=== PATIENT | female | born 1995 | race Caucasian/White ===

== ENCOUNTER 2017-03-08 12:05 | Emergency (ER) | payer MEDICAID, SELFPAY ==
[2017-03-08 13:01] VITALS: BP 124/79; PULSE 77; RESP 20; TEMP 37.1; O2SAT 100; BMI 21.2
--- NOTE | 2017-03-08 13:25 | HMH.EDUTC ---
[facility] [place] Clinical Impression: Upper respiratory infection Qualifiers: URI type: unspecified URI Qualified Code(s): J06.9 - Acute upper respiratory infection, unspecified Disposition: Home, Self-Care Condition on Discharge: Good Instructions: DI for Acute Bronchitis Additional Instructions: * Monitor Temp. Tylenol and/or Ibuprofen as needed. ER if fever is no less than 101 despite alternating Tylenol and Ibuprofen * Encourage fluids, water, Gatorade, powerade, pedialyte if /toddler/or child * Warm salt water gargles for throat irritation *Warm fluids *Sore throat lozenges *Sleep elevated *humidifier or vaporizer Lots of rest Increase fluids, water, Gatorade, powerade *Your throat swab was sent to lab for culture. Those results area typically sent to your primary care physician. Be sure to follow up in 2-3 days if no improvement so they can review those results and treat if necessary If you dont have primary care I recommend you get one, but in the mean time you will have to return to a walk in clinic Follow up IMMEDIATELY for new or worsening of symptoms OR no noticeable improvement over the next 48-72 hours. 911 immediately for any life threatening symptoms such as chest pain or difficulty breathing Referrals: Edwin Hackett MD [Primary Care Provider] - Time of Disposition: 13:46 (Prescription written for Prednison 20mg BID, Azithromycin (Zpack) as directed) Medical Decision Making Vital Signs: 03/08/17 13:01 Temperature 98.8 F Temperature Source Oral Pulse Rate [Right Brachial] 77 Respiratory Rate 20 Blood Pressure [Right Arm] 124/79 Blood Pressure Mean [Right Arm] 94 Blood Pressure Source [Right Arm] Automatic Cuff Blood Pressure Position [Right Arm] Sitting 02 Sat by Pulse Oximetry 100 Oxygen Delivery Method Room Air - Napoleon Inquiry Pt receiving controlled substance: No Napoleon was queried for this patient: No [facility] [place] - General Chief complaint: Upper Respiratory Infection Stated complaint: upper resp Time Seen by Provider: 03/08/17 13:31 Mode of Arrival: Ambulatory Source of Information: Patient Limitations: No Limitations Description of Symptoms (Recalled from Triage Doc. by RN): SORE THROAT, THICK MUCOUS, RIGHT SIDE OF NECK SORE FOR 2 WEEKS. HEENT Symptoms (Recalled from RN notes): Yes (SORE THROAT) Resp Symptoms (Recalled from RN notes): Yes (THICK MUCOUS) Skin Symptoms (Recalled from RN notes): No MS Symptoms (Recalled from RN notes): Yes (RIGHT NECK PAIN FOR 2 WEEKS) Functional Status (Recalled from RN notes): NS - History of Present Illness Provider Complaint: Patient state that she has been having sore throat, bilateral ear pain and thick nasal congestion States that she is starting to have pressure in her sinuses so she decided to come in and get checked out Onset (ago): day(s) (2) Severity: mild Severity scale (1-10): 4 Consistency: constant Relieving factors: none Exacerbating factors: none - Related Data Allergies Allergy/AdvReac Type Severity Reaction Status Date / Time No Known Allergies Allergy Verified 03/08/17 13:07 - Worker's Comp Is this a Worker's Comp case?: No [facility] History Medical History: Denies:: Cancer, Diabetes Mellitus Type 1, Diabetes Mellitus Type 2, MRSA Amputation: No - *Social History Smoking Status: Current every day smoker Tobacco Type: cigarettes Alcohol Intake: never - Psychiatric History Expresses thoughts of harming self/others: None Suicide Plan Description: No Plan - Constitutional Reports chills, Reports fever(s) - ENT Reports sinus pressure, Reports sore throat - Respiratory Reports cough, Denies chest congestion, Denies shortness of breath Physical Exam - General General appearance: alert, in no apparent distress - Expanded ENT Exam Nose exam: Present: sinus tenderness, other (Tenderness noted maxillary sinus, reports thick yellow discharge) Throat exam: Present: other Comment: Throat red, irr
--- NOTE | 2017-03-08 13:30 | ED_ITS ---
[facility] – [place] Clinical Impression: Upper respiratory infection Qualifiers: URI type: unspecified URI Qualified Code(s): J06.9 - Acute upper respiratory infection, unspecified Disposition: Home, Self-Care Condition on Discharge: Good Instructions: DI for Acute Bronchitis Additional Instructions: * Monitor Temp. Tylenol and/or Ibuprofen as needed. ER if fever is no less than 101 despite alternating Tylenol and Ibuprofen * Encourage fluids, water, Gatorade, powerade, pedialyte if /toddler/or child * Warm salt water gargles for throat irritation *Warm fluids *Sore throat lozenges *Sleep elevated *humidifier or vaporizer Lots of rest Increase fluids, water, Gatorade, powerade *Your throat swab was sent to lab for culture. Those results area typically sent to your primary care physician. Be sure to follow up in 2-3 days if no improvement so they can review those results and treat if necessary If you don? t have primary care I recommend you get one, but in the mean time you will have to return to a walk in clinic Follow up IMMEDIATELY for new or worsening of symptoms OR no noticeable improvement over the next 48-72 hours. 911 immediately for any life threatening symptoms such as chest pain or difficulty breathing Referrals: Edwin Hackett MD [Primary Care Provider] - Time of Disposition: 13:46 (Prescription written for Prednison 20mg BID, Azithromycin (Zpack) as directed) Medical Decision Making Vital Signs: 03/08/17 13:01 Temperature 98.8 F Temperature Source Oral Pulse Rate [Right Brachial] 77 Respiratory Rate 20 Blood Pressure [Right Arm] 124/79 Blood Pressure Mean [Right Arm] 94 Blood Pressure Source [Right Arm] Automatic Cuff Blood Pressure Position [Right Arm] Sitting 02 Sat by Pulse Oximetry 100 Oxygen Delivery Method Room Air - Napoleon Inquiry Pt receiving controlled substance: No Napoleon was queried for this patient: No [facility] [place] HPI - General Chief complaint: Upper Respiratory Infection Stated complaint: upper resp Time Seen by Provider: 03/08/17 13:31 Mode of Arrival: Ambulatory Source of Information: Patient Limitations: No Limitations Description of Symptoms (Recalled from Triage Doc. by RN): SORE THROAT, THICK MUCOUS, RIGHT SIDE OF NECK SORE FOR 2 WEEKS. HEENT Symptoms (Recalled from RN notes): Yes (SORE THROAT) Resp Symptoms (Recalled from RN notes): Yes (THICK MUCOUS) Skin Symptoms (Recalled from RN notes): No MS Symptoms (Recalled from RN notes): Yes (RIGHT NECK PAIN FOR 2 WEEKS) Functional Status (Recalled from RN notes): NS - History of Present Illness Provider Complaint: Patient state that she has been having sore throat, bilateral ear pain and thick nasal congestion States that she is starting to have pressure in her sinuses so she decided to come in and get checked out Onset (ago): day(s) (2) Severity: mild Severity scale (1-10): 4 Consistency: constant Relieving factors: none Exacerbating factors: none - Related Data Allergies Allergy/AdvReac Type Severity Reaction Status Date / Time No Known Allergies Allergy Verified 03/08/17 13:07 - Worker's Comp Is this a Worker's Comp case?: No [facility] History Medical History: Denies:: Cancer, Diabetes Mellitus Type 1, Diabetes Mellitus Type 2, MRSA Amputation: No - *Social History Smoking Status: Current every day smoker Tobacco Type: cigarettes Alcohol Intake: never - Psychiatric
== END 2017-03-08 13:59 | disposition home or self-care (01) ==
PROVIDERS: Emergency Provider Nurse Practitioner; Family Provider Internal Medicine Adolescent Medicine; PCP Internal Medicine Adolescent Medicine
DX: J06.9 Acute upper respiratory infection, unspecified (principal); H92.03 Otalgia, bilateral; F17.210 Nicotine dependence, cigarettes, uncomplicated
CPT/HCPCS: 87430; 87880; 99201

== ENCOUNTER → 2017-07-21 08:24 | Outpatient (CLI) | payer MEDICAID, SELFPAY ==
[2017-07-21 06:31] LABS: Neisseria gonorrhoeae, NAA Negative (Negative)
== END ==
PROVIDERS: Family Provider Internal Medicine Adolescent Medicine; PCP Internal Medicine Adolescent Medicine; Visit Provider Nurse Practitioner Obstetrics & Gynecology
DX: R10.9 Unspecified abdominal pain (principal)
CPT/HCPCS: 87491; 87591

== ENCOUNTER → 2017-08-30 14:30 | Outpatient (CLI) | payer MEDICAID, SELFPAY ==
[2017-08-30 15:02] LABS: Urine Pregnancy, HCG Qual. Negative (Negative)
[2017-08-30 15:21] LABS: Basophils # 0.1 K/mm3 (0-0.2); Basophils % 0.9 % (0.1-2.0); Eosinophils # 0.4 K/mm3 (0.0-0.4); Eosinophils % 6.5 % (0.1-12.0); Hematocrit 52.7 % (37.0-47.0); Hemoglobin 17.2 g/dL (12.2-16.2); Lymphocytes # 2.4 K/mm3 (0.7-4.5); Lymphocytes % 36.9 K/mm3 (10-50); Mean Corpuscular HGB Conc 32.6 g/dL (31.8-35.4); Mean Corpuscular Hemoglobin 31.2 pg (27.0-31.2); Mean Corpuscular Volume 95.7 fl (81-99); Mean Platelet Volume 7.7 fl (7.4-10.4); Monocytes # 0.3 K/mm3 (0.1-1.0); Monocytes % 4.9 % (1.7-9.3); Neutrophils # 3.3 K/mm3 (1.8-7.8); Neutrophils % 50.8 % (37.0-80.0); Platelet Count 277 K/mm3 (142-424); Red Blood Count 5.51 M/mm3 (4.20-5.40); Red Cell Distribution Width 12.2 % (11.5-17.5); White Blood Count 6.5 K/mm3 (4.8-10.8)
[2017-08-30 16:24] LABS: Anion Gap 12.2 mEq/L (5-15); Blood Urea Nitrogen 11 mg/dL (7-18); Calcium 9.2 mg/dL (8.5-10.1); Carbon Dioxide 27 mmol/L (21.0-32.0); Chloride 105 mmol/L (98-107); Creatinine,Serum 0.84 mg/dL (0.55-1.02); Estimated Glomerular Filt Rate 84 ml/min (>60); GFR (African American) 102 ML/MIN (>60); Glucose 76 mg/dL (74-106); Potassium 4.2 mmoL/L (3.5-5.1); Sodium 140 mmol/L (136-145)
== END ==
PROVIDERS: Visit Provider Nurse Practitioner Obstetrics & Gynecology
DX: Z01.818 Encounter for other preprocedural examination (principal); Z30.09 Encounter for other general counseling and advice on contraception
CPT/HCPCS: 36415; 80048; 81025; 85025

== ENCOUNTER → 2018-06-09 16:28 | Outpatient (CLI) | payer MEDICAID, SELFPAY ==
[2018-06-13 06:15] LABS: Neisseria gonorrhoeae, NAA Negative (Negative)
== END ==
PROVIDERS: Visit Provider Nurse Practitioner Obstetrics & Gynecology
DX: R10.2 Pelvic and perineal pain (principal); Z72.53 High risk bisexual behavior
CPT/HCPCS: 87491; 87591

== ENCOUNTER → 2018-06-15 13:16 | Outpatient (CLI) | payer MEDICAID, SELFPAY ==
--- NOTE | 2018-06-15 13:20 | US_ITS ---
US transvaginal HISTORY: Pelvic pain and pressure ITS.REASON: US T/V- Pelvic Pain ORDERING PHYSICIAN: Johann Johnson MD PATIENT AGE: 23 years Comparison: None Last menstrual period is 05/24/2018 FINDINGS: The uterus is 9 x 4.6 x 5.7 cm. Combined endometrial thickness is 13 mm with some heterogeneous echogenicity of the endometrial stripe. Right ovary is 3.5 x 3 cm. Left ovary is 3.6 x 3.2 cm. There are small bilateral ovarian follicles. Blood flow is present within the ovaries. No dominant adnexal mass evident. There is a small amount fluid in the cul-de-sac. IMPRESSION: Mildly thickened endometrium Small bilateral ovarian follicles with small amount of fluid in the cul-de-sac
== END ==
PROVIDERS: PCP Internal Medicine Adolescent Medicine; Visit Provider Nurse Practitioner Obstetrics & Gynecology
DX: R10.2 Pelvic and perineal pain (principal)
CPT/HCPCS: 76830

== ENCOUNTER → 2018-06-30 16:29 | Outpatient (CLI) | payer MEDICAID, SELFPAY ==
[2018-07-04 10:14] LABS: Neisseria gonorrhoeae, NAA Negative (Negative)
== END ==
PROVIDERS: Visit Provider Nurse Practitioner Obstetrics & Gynecology
DX: R10.2 Pelvic and perineal pain (principal); Z72.51 High risk heterosexual behavior
CPT/HCPCS: 87491; 87591

== ENCOUNTER 2018-08-27 13:04 | Emergency (ER) | payer MEDICAID, SELFPAY ==
[2018-08-27 13:09] VITALS: BP 142/72; PULSE 78; RESP 18; TEMP 36.6; O2SAT 99; BMI 24.8
--- NOTE | 2018-08-27 13:31 | HMH.EDGENADL ---
ED Disposition Clinical Impression: Anorectal hemorrhage Disposition: Home, Self-Care Condition on Discharge: Good Instructions: Anal Fissure, DI for Acute Pain -- Adult Prescriptions: Hydrocortisone [Anusol-Hc] 1 applic TP QID 7 Days #1 [email or web address] Referrals: Nely Pichardo APRN [Primary Care Provider] - Time of Disposition: 16:47 - Critical Care Critical Care Time: No Attestation: On 08/27/18, the high probability of a clinically significant, sudden or life threatening deterioration of the following system(s) required my full and direct attention, intervention and personal management. The time I documented below is in addition to time spent performing reported procedures but includes the following listed in this critical care notation. Medical Decision Making - Medical Records Medical records reviewed: Yes: I reviewed the patient's medical records. - Napoleon Inquiry Pt receiving controlled substance: No Napoleon was queried for this patient: No Vital Signs: 08/27/18 13:09 Temperature 98 F Temperature Source Oral Pulse Rate [Left Apical] 78 Respiratory Rate 18 Blood Pressure [Right Arm] 142/72 H Blood Pressure Mean [Right Arm] 95 02 Sat by Pulse Oximetry 99 Oxygen Delivery Method Room Air - Lab Data Lab results reviewed: Yes: I reviewed the patient's lab results. Orders (Tests/Meds): ED MEDICATIONS Discontinued Medications Generic Name Dose Route Start Last Admin Trade Name Parvin PRN Reason Stop Dose Admin Belladonna Alkaloids/Opium 1 each 08/27/18 13:55 08/27/18 14:13 Belladonna & Opium (30mg) Supp. #15a RC 08/27/18 13:56 1 each ONCE ONE Administration Ketorolac Tromethamine 60 mg 08/27/18 14:36 08/27/18 14:41 Toradol 60mg/2ml Vial IM 08/27/18 14:37 60 mg ONCE ONE Administration Lidocaine HCl 10 ml 08/27/18 14:40 08/27/18 14:41 Urojet Lidocaine 2% 10ml TOPICAL 08/27/18 14:41 10 ml ONCE ONE Administration Oxycodone/Acetaminophen 1 each 08/27/18 15:03 Percocet 10mg/325mg Tablet PO 08/27/18 15:04 ONCE ONE Promethazine HCl 25 mg 08/27/18 15:03 Phenergan 25mg Tablet PO 08/27/18 15:04 ONCE ONE ORDERS Category Date Time Status CT abdomen pelvis wo con Stat Cat Scan 08/27/18 14:45 Taken General Adult HPI - General Chief complaint: PAIN Stated complaint: Problems with rectum possible tear Time Seen by Provider: 08/27/18 13:31 Mode of Arrival: Ambulatory Source of Information: Patient Limitations: No Limitations Description of Symptoms (Recalled from ER Triage Doc. by RN): pt c/o possible tear in rectum due to constipation. pt states that it bleeds when she has bowel movements. - History of Present Illness HPI narrative: voices 4 days of pain/ bleeding. All pain and bleeding seems terminal anus. No belly or back pain - Related Data Home Medications Medication Instructions Recorded Confirmed linaclotide 72 mcg capsule 72 mcg PO DAILY 06/26/18 08/02/18 trazodone 50 mg tablet PO #60 tab 08/02/18 08/02/18 Previous Rx's Medication Instructions Recorded Hydrocortisone [Anusol-Hc] 1 applic TP QID 7 Days #1 08/27/18 [email or web address] Allergies Allergy/AdvReac Type Severity Reaction Status Date / Time No Known Allergies Allergy Verified 08/02/18 15:15 [facility] History - Hepatitis A Screen Drug use history?: No High risk sexual behaviors?: No History of sexually transmitted infection?: No Currently employed?: No Childcare worker?: No Do you have indoor plumbing?: Yes Do you have electricity?: Yes Attestation statement:: This patient has been screened for Hepatitis A risk factors. I have reviewed the patient's past medical history: Yes Medical History: Denies:: Cancer, Diabetes Mellitus Type 1, Diabetes Mellitus Type 2, Internal Pacemaker, MRSA, Seizures Other Medical History: Denies: Blood Transfusion Reaction Other Surgeries: Yes: , Dilation and Curettage, Tubal Ligation, Other. No: Pace
--- NOTE | 2018-08-27 13:41 | ED_ITS ---
ED Disposition Clinical Impression: Anorectal hemorrhage Disposition: Home, Self-Care Condition on Discharge: Good Instructions: Anal Fissure, DI for Acute Pain -- Adult Prescriptions: Hydrocortisone [Anusol-Hc] 1 applic TP QID 7 Days #1 [email or web address] Referrals: Nely Pichardo APRN [Primary Care Provider] - Time of Disposition: 16:47 - Critical Care Critical Care Time: No Attestation: On 08/27/18, the high probability of a clinically significant, sudden or life threatening deterioration of the following system(s) required my full and direct attention, intervention and personal management. The time I documented below is in addition to time spent performing reported procedures but includes the following listed in this critical care notation. Medical Decision Making - Medical Records Medical records reviewed: Yes: I reviewed the patient's medical records. - Napoleon Inquiry Pt receiving controlled substance: No Napoleon was queried for this patient: No Vital Signs: 08/27/18 13:09 Temperature 98 F Temperature Source Oral Pulse Rate [Left Apical] 78 Respiratory Rate 18 Blood Pressure [Right Arm] 142/72 H Blood Pressure Mean [Right Arm] 95 02 Sat by Pulse Oximetry 99 Oxygen Delivery Method Room Air - Lab Data Lab results reviewed: Yes: I reviewed the patient's lab results. Orders (Tests/Meds): ED MEDICATIONS Discontinued Medications Generic Name Dose Route Start Last Admin Trade Name Parvin PRN Reason Stop Dose Admin Belladonna Alkaloids/Opium 1 each 08/27/18 13:55 08/27/18 14:13 Belladonna & Opium (30mg) Supp. #15a RC 08/27/18 13:56 1 each ONCE ONE Administration Ketorolac Tromethamine 60 mg 08/27/18 14:36 08/27/18 14:41 Toradol 60mg/2ml Vial IM 08/27/18 14:37 60 mg ONCE ONE Administration Lidocaine HCl 10 ml 08/27/18 14:40 08/27/18 14:41 Urojet Lidocaine 2% 10ml TOPICAL 08/27/18 14:41 10 ml ONCE ONE Administration Oxycodone/Acetaminophen 1 each 08/27/18 15:03 Percocet 10mg/325mg Tablet PO 08/27/18 15:04 ONCE ONE Promethazine HCl 25 mg 08/27/18 15:03 Phenergan 25mg Tablet PO 08/27/18 15:04 ONCE ONE ORDERS Category Date Time Status CT abdomen pelvis wo con Stat Cat Scan 08/27/18 14:45 Taken General Adult HPI - General Chief complaint: PAIN Stated complaint: Problems with rectum possible tear Time Seen by Provider: 08/27/18 13:31 Mode of Arrival: Ambulatory Source of Information: Patient Limitations: No Limitations Description of Symptoms (Recalled from ER Triage Doc. by RN): pt c/o possible tear in rectum due to constipation. pt states that it bleeds when she has bowel movements. - History of Present Illness HPI narrative: voices 4 days of pain/ bleeding. All pain and bleeding seems terminal anus. No belly or back pain - Related Data Home Medications Medication Instructions Recorded Confirmed linaclotide 72 mcg capsule 72 mcg PO DAILY 06/26/18 08/02/18 trazodone 50 mg tablet PO #60 tab 08/02/18 08/02/18 Previous Rx's Medication Instructions
--- NOTE | 2018-08-27 14:45 | CT_ITS ---
CT abdomen pelvis wo con INDICATION: 4 days of pain and bleeding all pain and bleeding seem to be at the anus. No biliary, no abdominal nor back pain ITS.REASON: rectal pain rectal bleeding. Rectal fissure possible rectal tear. ORDERING PHYSICIAN: Virgilio Hernandez MD PATIENT AGE: 23 years COMPARISON: 01/24/2018 PROCEDURE: Oral Contrast: None IV Contrast: None TECHNIQUE: Axial images obtained with sagittal and coronal reformats. All CT scans at the facility use one or more dose reduction, viz: automated exposure control, ma/kV adjustment per patient size (including targeted exams where dose is matched to indication, i.e. head), or iterative reconstruction technique. FINDINGS: Lower thorax: No acute finding. Heart normal size. ABDOMEN: The lack of oral and IV contrast decreases sensitivity. Liver: No masses or biliary dilatation. Gallbladder: Nondistended. No radio opaque stones. Question minimal sludge. Pancreas: No masses or peripancreatic fluid collections. Unremarkable on this noncontrast study. Spleen: Unremarkable. Adrenals: Unremarkable /Kidneys/ureters: No significant findings PELVIS: Urinary bladder unremarkable. Anteverted uterus.. Uterus generous girth unchanged since previous studies Slightly larger Right ovary- upper normal in size measuring up to 4 cm height and contains numerous follicles. Suggestion trace free fluid posterior to the right ovary and towards cul-de-sac. It likely physiologic, could reflect a recent cyst rupture . Moderate size left ovary. GI Tract: Stomach bowel: Nondistended. No obvious mass or thickening. Appendix: No evidence of appendicitis. The terminal ileum unremarkable. Small bowel. No prominent findings. Small moderate air-fluid level at small bowel to the right abdomen, axial image 54, sagittal 28th. Unimpressive can reflect a minor ileus. . Moderate stool at the cecum, right and transverse colon Rectosigmoid: Note a air-fluid level most evident at the rectum rectum with liquid stool/fluid extending into the into rectosigmoid region. This could reflect diarrhea or may reflect regional bleeding as suggested by history. Borderline borderline wall thickening distal most rectum towards anus also suggest.Question some of minimal fluid in cul-de-sac mixed in back to the Anterior margin the rectum wall on axial slice 97.-Equivocal No enlarged lymph nodes. No abdominal masses. .. BONE. No lesions no remarkable findings. IMPRESSION...... 1. Minimal air-fluid level within rectum & towards rectosigmoid. ... Can reflect diarrhea, or may reflect bleeding in this region as was suggested by ER history .... Borderline wall thickening at the distal most rectum towards anus. 2. Suggestion scant fluid cul-de-sac & Extending towards anterior wall of rectum Unimpressive but noted Other minor observations: 3. Right ovary is upper normal in size 4 cm. likely contains numerous follicles. Likely accounts for the minimal physiologic fluid in cul-de-sac Ovaries generous size bilaterally.. Generous girth of uterus similar to previous study
[2018-08-27 17:44] VITALS: BP 126/66; PULSE 68; RESP 18; TEMP 36.6; O2SAT 100
== END 2018-08-27 17:48 | disposition home or self-care (01) ==
PROVIDERS: Emergency Provider Emergency Medicine; PCP Nurse Practitioner Family
DX: K62.5 Hemorrhage of anus and rectum (principal); K60.2 Anal fissure, unspecified; F17.210 Nicotine dependence, cigarettes, uncomplicated
CPT/HCPCS: 74176; 96372; 99282

== ENCOUNTER → 2018-08-31 12:35 | Outpatient (CLI) | payer MEDICAID, SELFPAY ==
--- NOTE | 2018-08-31 12:40 | CT_ITS ---
CT abdomen pelvis w con CLINICAL INDICATION: ITS.REASON: RECTAL BLEEDING, RECTAL PAIN ORDERING PHYSICIAN: Nely Pichardo APRN PATIENT AGE: 23 years COMPARISON: 08/27/2018. TECHNIQUE: Axial images obtained with sagittal and coronal reformats. All CT scans at the facility use one or more dose reduction, viz: automated exposure control, ma/kV adjustment per patient size (including targeted exams where dose is matched to indication, i.e. head), or iterative reconstruction technique. PROCEDURE: Oral Contrast: Yes IV Contrast: Yes . FINDINGS: Lower thorax: No acute finding ABDOMEN: Liver: No masses or biliary dilatation. Gallbladder: Nondistended. No radio opaque stones. Pancreas: No masses or peripancreatic fluid collections. Spleen: Unremarkable. Adrenals: Unremarkable Kidneys/ureters: No masses. No renal calculi. No hydronephrosis. No perinephric fluid collections. No ureteral dilatation or obvious ureteral calculi. Stomach bowel: Nondistended. No obvious mass or thickening. Appendix: No evidence of appendicitis. PELVIS: Reproductive: There is very small cul-de-sac fluid. There is a 10 mm round hypodense focus with enhancing wall suggesting a collapsing cyst at the right adnexa. Left adnexa is normal. Bladder: Nondistended. No obvious stones or masses. ABDOMEN & PELVIS: Peritoneum: No abnormal fluid collections. No obvious inflammatory changes. No free air. Lymph nodes: No enlarged lymph nodes apparent. Vasculature: No evidence of abdominal aortic aneurysm. No retroperitoneal hemorrhage evident. Bones: No acute fracture IMPRESSION: Physiological small amount of cul-de-sac fluid. Probable collapsing 10 mm right adnexal cyst. No other acute process.
== END ==
PROVIDERS: PCP Internal Medicine Adolescent Medicine; Visit Provider Nurse Practitioner Family
DX: K62.5 Hemorrhage of anus and rectum (principal); K62.89 Other specified diseases of anus and rectum
CPT/HCPCS: 74177; Q9967

== ENCOUNTER → 2020-02-16 10:53 | Outpatient (CLI) | payer OTHER, SELFPAY ==
[2020-02-16 11:36] LABS: Basophils # 0.1 K/mm3 (0-0.2); Basophils % 1.1 % (0.1-2.0); Eosinophils # 0.4 K/mm3 (0.0-0.4); Eosinophils % 5.2 % (0.1-12.0); Hematocrit 49.8 % (37.0-47.0); Hemoglobin 16.9 g/dL (12.2-16.2); Lymphocytes # 2.4 K/mm3 (0.7-4.5); Lymphocytes % 28.6 % (10-50); Mean Corpuscular HGB Conc 33.9 g/dL (31.8-35.4); Mean Corpuscular Hemoglobin 32.9 pg (27.0-31.2); Mean Corpuscular Volume 96.9 fl (81-99); Monocytes # 0.4 K/mm3 (0.1-1.0); Monocytes % 5.3 % (1.7-9.3); Neutrophils % 59.9 % (37.0-80.0); Platelet Count 276 K/mm3 (142-424); Red Blood Count 5.14 M/mm3 (4.20-5.40); Red Cell Distribution Width 12.7 % (11.5-17.5); White Blood Count 8.3 K/mm3 (4.8-10.8)
[2020-02-16 11:56] LABS: HCG Qualitative, Serum Negative (Negative)
[2020-02-16 12:01] LABS: Anion Gap 13.4 mEq/L (5-15); Blood Urea Nitrogen 14 mg/dl (7-17); Calcium 9.7 mg/dl (8.4-10.2); Carbon Dioxide 24 mmol/L (22.0-30.0); Chloride 105 mmol/L (98-107); Estimated Glomerular Filt Rate 87 ml/min (>60); GFR (African American) 106 ML/MIN (>60); Glucose 98 mg/dl (74-100); Potassium 4.4 mmoL/L (3.5-5.1); Sodium 138 mmol/L (136-145)
[2020-02-16 13:09] LABS: Coronavirus 19 IgG Antibody Negative (Negative); Coronavirus 19 IgM Antibody Negative (Negative)
== END ==
PROVIDERS: Visit Provider Nurse Practitioner Obstetrics & Gynecology
DX: Z01.818 Encounter for other preprocedural examination (principal); Z03.818 Encounter for observation for suspected exposure to other biological agents ruled out; N94.6 Dysmenorrhea, unspecified; N80.0 Endometriosis of uterus
CPT/HCPCS: 36415; 80048; 84703; 85025; 86328

== ENCOUNTER 2020-02-18 07:06 | Observation (INO) | payer OTHER, SELFPAY ==
[2020-02-15 15:28] VITALS: BMI 22.4
[2020-02-18] VITALS (24 sets, daily range): BP systolic 100–157; BP diastolic 46–71; PULSE 61–97; RESP 12–18; TEMP 36.3–43; O2SAT 95–100
--- NOTE | 2020-02-18 08:33 | HMH.ANESCL ---
[facility] [place] Anesthesia Checklist - Structural Data Admitted From: Home Planned Operative Procedure/s: [facility] Consent for Planned Operative Procedure(s) Verified: Yes - Additional verifications Anesthesia Reactions: No Hx Blood Transfusions: No Blood Transfusion Reaction: No - Airway Assessment C-Spine Mobility Assessed: Yes TMJ Mobility Assessed: Yes Dentition: Good Dentition - Neurological Assessment Level of Consciousness: Awake, Alert, Appropriate - Anesthesia Plan Anesthesia Risk discussed: Yes Anesthesia Plan: Verified ASA Class: II Anesthesia Type: General [facility] [place] History I have reviewed the patient's past medical history: Yes Medical History: Denies:: Cancer, Diabetes Mellitus Type 1, Diabetes Mellitus Type 2, Internal Pacemaker, MRSA, Seizures *Have you ever received a pneumonia vaccine?: No *Have you received a flu vaccine this season?: Yes Other Medical History: Denies: Blood Transfusion Reaction Anesthesia experience/problems:: none Other Surgeries: Yes: , Dilation and Curettage, Tubal Ligation, Other. 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
--- NOTE | 2020-02-18 09:53 | HMH.OPNOTE ---
Date of procedure: 02/18/20 Pre-op Diagnosis:: Pelvic pain, dysmenorrhea Post-op Diagnosis:: Pelvic pain, dysmenorrhea, possible adenomyosis Procedure performed:: Laparoscopically assisted vaginal hysterectomy Surgeon:: Johann Johnson MD Towel Weaver(s):: Cadence Costa CLINICAL QUALITY MANAGER:: Shaggy Resendez Anesthesia: GETA Estimated blood loss (mL): 150 Clinical Note:: She is a 24-year-old lady who complains of painful periods. She has had a previous ablation and tubal ligation. Despite this she continued to have pelvic pain, dyspareunia and dysmenorrhea. After having discussed the risks and benefits we elected to perform a laparoscopic-assisted vaginal hysterectomy. Operative findings:: She had an anteverted bulky uterus. I suspect she may have had adenomyosis. Ovaries appeared normal. The tubes have been previously removed. The appendix was visualized and appeared normal. The rest the pelvis appeared normal. The upper abdomen appeared normal. Operative note:: She was taken to the operating room where general anesthesia was found be adequate. She was prepped and draped in normal sterile fashion in the semilithotomy position. A weighted speculum was placed in the vagina and the anterior lip of the cervix was grasped with a tenaculum. An acorn uterine manipulator was then placed within the cervical os. I then changed gloves. I injected 10 cc of 0.5% ropivacaine around the umbilicus and made a small incision within the umbilicus. I inserted a Veress needle into the abdominal cavity. The abdominal cavity was then insufflated with carbon dioxide gas to a pressure of 20 mmHg. I then inserted an 11 mm trocar under direct vision. I injected through and through the pubic hairline, made a small incision here and inserted a 5 mm trocar under direct vision. I identified the inferior epigastric arteries on the left side, went lateral to these and injected through and through. I then made a small incision and inserted an 11 mm trocar under direct vision. A similar 11 mm trocar was placed on the right side. The left round ligament was then grasped and cut through with harmonic scalpel. This was followed by opening up the peritoneum anteriorly to the midline. This is followed by cutting through the left utero-ovarian ligament. I used Harmonic scalpel on the coagulation mode. I then took down the posterior aspect of the broad ligament to the level of the uterosacral ligament. I then skeletonized the uterine arteries on the left side and placed hemoclips on these. Using the harmonic scalpel on coagulation mode adjacent to the cervix I then took down these uterine arteries. I then further freed up the bladder anteriorly and laterally on the left side. I then turned my attention to the right side where I grasped the right round ligament. I then cut through the right round ligament. I then took down the anterior peritoneum to the midline joining up with the other side. I further dissected the bladder off. The posterior aspect of the right broad ligament was then taken down with harmonic scalpel. I skeletonized the uterine arteries on the right side. I applied hemoclips to the uterine arteries and staying adjacent to the cervix on the right side I took down the uterine arteries with harmonic scalpel on coagulation mode. I further freed up the bladder. We then assured hemostasis. The patient was placed in the lithotomy position and a weighted speculum was placed in the vagina. The anterior and posterior lip of the cervix were grasped with Cisneros tenacula. I then injected 20 cc of 1% Xylocaine with epinephrine circumferentially about the cervix. I then circumscribed the cervix. I opened up in the posterior cul-de-sac using Gomez scissors. I then placed a long weighted speculum through the defect. The left uterosacral ligament was then clamped cut and suture-ligated and tagged. This was followed by the left cardinal ligament which was clamped cut and
--- NOTE | 2020-02-18 10:00 | P.PN_ITS ---
[facility] Anesthesia Record Part I Intake, IV Amount: 1,900 Estimated blood loss (mL): 150 Urine output (mL): 200 Blood Pressure: 112/71 SaO2: 100 Pulse Rate: 80 Respiratory Rate: 12 Temperature: 98.2 F Patient is:: Awake, Stable Stable to PACU at:: 10:00
--- NOTE | 2020-02-18 10:01 | HMH.HP ---
*Admission Date: 02/18/20 *Chief complaint: Pelvic pain, dysmenorrhea *History of present illness: She is a 24-year-old lady who complains of severe pelvic pain as well as severe dysmenorrhea. She has had a previous tubal ligation as well as endometrial ablation. Despite this she continued to have bleeding with her periods as well as severe pain with her periods. On examination her uterus was boggy and quite tender. I suspect she has adenomyosis. After having discussed the risks and benefits we elected perform a laparoscopically assisted vaginal hysterectomy. [facility] History I have reviewed the patient's past medical history: Yes Medical History: Denies:: Cancer, Diabetes Mellitus Type 1, Diabetes Mellitus Type 2, Internal Pacemaker, MRSA, Seizures *Have you ever received a pneumonia vaccine?: No *Have you received a flu vaccine this season?: Yes Other Medical History: Denies: Blood Transfusion Reaction Anesthesia experience/problems:: none Other Surgeries: Yes: , Dilation and Curettage, Tubal Ligation, Other. No: Pacemaker Amputation: No Fractures: No - *Social History Smoking Status: Current every day smoker Tobacco Type: cigarettes # Packs/Day (cigarettes): 1 Alcohol Intake: never Alcohol Intake Frequency:: other Substance Use Type: denies use *Occupational Status:: unemployed Housing: house Household Members: family, children *Travel in the last 8 weeks: None Family Hx:: No significant family history PLANT ENGINEER history: Spontaneous Review of Systems - Review of Systems Review of systems:: pertinent systems reviewed and negative unless documented below Meds Home Medications Medication Instructions Recorded Confirmed Type No Known Home Medications 02/18/20 02/18/20 History Allergies Allergy/AdvReac Type Severity Reaction Status Date / Time No Known Allergies Allergy Verified 01/25/20 10:12 Exam Vital signs and Labs for Last 24 Hours: Temp Pulse Resp BP Pulse Ox 98.2 F 80 12 112/71 97 02/18/20 10:01 02/18/20 10:01 02/18/20 10:01 02/18/20 10:01 02/18/20 07:22 I & O for Last 24 hours: Intake & Output 02/15/20 02/16/20 02/17/20 02/18/20 11:59 11:59 11:59 11:59 Intake Total 1899 / 1900 Balance 1900 / 1900 Weight 156 lb - Constitutional no acute distress - *Routine HEENT Exam Head: Present: normocephalic Eye: Present: EOMI, PERRL ENT: Present: mucous membranes moist - *Routine Neck Exam Present: supple, full ROM - *Routine Respiratory Exam Absent: accessory muscle use (good air entry bilaterally), wheezes, crackles - *Routine Cardiovascular Exam Present: RRR. Absent: murmur - *Routine Abdominal Exam Present: soft, normoactive bowel sounds. Absent: tenderness, rebound, guarding, mass - *Routine Rectal Exam Patient deferred: visual exam, digital exam - *Routine Exam Patient deferred: external exam, groin exam, perineal exam - *Routine Extremities Exam Present: full ROM. Absent: cyanosis, edema, calf tenderness - *Routine Skin Exam Present: intact (good color) - *Routine Neurological Exam Present: alert, oriented X3 - Routine Psychiatric Exam Present: normal affect Assessment and Plan (1) Dysmenorrhea Status: Acute Category: Medical Code(s): N94.6 - Dysmenorrhea, unspecified (2) Adenomyosis of uterus Status: Acute Category: Medical Code(s): N80.0 - Endometriosis of uterus (3) Pelvic pain Status: Acute Category: Medical Code(s): R10.2 - Pelvic and perineal pain - Assessment and plan all Dx Assessment and Plan for all problems:: She has had a previous ablation and tubal ligation. She was quite tender on examination so we have admitted her for a laparoscopically assisted vaginal hysterectomy.
--- NOTE | 2020-02-18 10:43 | PC.NURSE ---
1026-detailed report called to Isaiah,RN 1031-pt transported to ob room 279 via hospital bed w/yonathan rails up and left in care of EL Russo and IsaiahRN with bed locked in lowest position, vss, family at bedside, pt stable
[2020-02-18 10:59] LABS: Microscopic,Cath URINE MICROSCOPIC (MICROSCOPIC)
--- NOTE | 2020-02-18 11:15 | PC.NURSE ---
Pt reports urine catheter feeling uncomfortable and asking when is the earliest she can have it removed. Also states I feel like I have to pee and my bladder is full . Position of catheter tubing and collection bag check and repositioned. Small amt of clear yellow urine noted to drain at this time.
[2020-02-18 11:18] LABS: Appearance,Urine/Cath CLEAR (Clear); Bilirubin,Cath Negative (Negative); Blood, Urine/Cath TRACE-I (Negative); Color,Urine/Cath YELLOW (Yellow); Glucose,Urine/Cath (UA) Negative (Negative); Ketones,Urine/Cath Negative (Negative); Leukocyte Esterase,Cath Negative (Negative); Nitrate,Cath Negative (Negative); Protein,Urine/Cath 2+ (Negative); Specific Gravity, Urine/Cath >= 1.030 (1.005-1.030); Urobilinogen,Cath 0.2 EU/dl (0.2)
--- NOTE | 2020-02-18 11:25 | PC.NURSE ---
Addendum entered by Patricia Barton RN 02/18/20 14:34: Report received at 10:25 a.m. not 11:35 a.m. Original Note: Report received from EL Fuentes.
[2020-02-18 11:48] LABS: Squamous Epithelial Ur./Cath Occasional #/hpf (0-5); WBC,Urine/Cath Occasional #/hpf (0-3)
--- NOTE | 2020-02-18 12:33 | PC.NURSE ---
Pt c/o bladder feeling full still . Only small amt of urine noted in drainage bag. Tubing and catheter manipulated some and approximately 400mls of additional clear yellow urine was drained into collection bag. Pt reported relief of pressure after that. Will monitor.
--- NOTE | 2020-02-18 12:49 | PC.NURSE ---
Sig other now at bs with pt.
--- NOTE | 2020-02-18 14:00 | PC.NURSE ---
Dee-pad changed while pt up to bathroom to void. Moderate amt of blood noted on dee-pad.
--- NOTE | 2020-02-18 14:01 | P.CONPHA_ITS ---
[facility] Pharmacy VTE Monitoring - Patient Demographics Admission date: 02/18/20 Report Date: 02/18/20 Time: 14:01 Allergies/Adverse Reactions: Patient Allergies No Known Allergies Allergy (Verified 01/25/20 10:12) Height: 1.78 m Weight: 70.76 kg Patient Problems: Current Active Problems Dysmenorrhea (Acute) Adenomyosis of uterus (Acute) Pelvic pain (Acute) - Prophylaxis VTE Prophylaxis Ordered?: Yes Types of VTE Prophylaxis: IPCS Thigh High Location of Applied Device: Bilateral Lower Extremeties
--- NOTE | 2020-02-18 14:13 | PC.NURSE ---
Brownlee catheter discontinued per 's verbal order. Pt immediately up to void. Only 100mls emptied from specimen hat (bloody tinged urine). Pt voices immediately relief from removal of brownlee. Sig other remains at bs.
[2020-02-18 16:17] LABS: Hematocrit 43.1 % (37.0-47.0); Hemoglobin 14.5 g/dL (12.2-16.2)
--- NOTE | 2020-02-18 16:59 | PC.NURSE ---
Pt has rested off and on throughout the day. Mostly complains of lower back pain now. Thinks its from being in the bed. Has been up using restroom w/o difficulty and also walking around the room. Sig other remains at bs attentive to pt. No edema or swelling noted. Abdomen soft to palpate, non distended. 4 lap sites to abdomen with original surgical dressings, CDI with scant amt of blood drainage. +BS x4 quads, normal active, No flatus yet, did receive stool softner per request this evening. Lungs clear bilat, throughout. IV remains patent and infusing in rt hand. LR infusing at 125/hr. Tolerating regular diet well. Small amt of vaginal bleeding still noted on dee-pads when pt is up to restroom. Heating pad offered to pt for her back pain, but declines at this time.
--- NOTE | 2020-02-18 17:45 | PC.NURSE ---
here rounding. No new orders.
--- NOTE | 2020-02-18 19:14 | PC.NURSE ---
Report given to NandoRN
[2020-02-19 04:02] VITALS: BP 108/55; PULSE 72; RESP 18; TEMP 36.6; O2SAT 99
--- NOTE | 2020-02-19 04:03 | PC.NURSE ---
Pt has slept in intervals this shift. A&O x4, BLT lung sounds clear throughout, Bowel sounds present in all 4 quadrants. IV saline locked, Pt has had good output this shift, 4 Lap sites covered with T&T scant amount of old blood noted on 2 sites. Pt denies headache, N/V, or SOA
[2020-02-19 06:33] LABS: Basophils % 0.2 % (0.1-2.0); Eosinophils # 0.1 K/mm3 (0.0-0.4); Eosinophils % 0.3 % (0.1-12.0); Hematocrit 39.2 % (37.0-47.0); Hemoglobin 13.2 g/dL (12.2-16.2); Lymphocytes # 2.8 K/mm3 (0.7-4.5); Lymphocytes % 17.3 % (10-50); Mean Corpuscular HGB Conc 33.6 g/dL (31.8-35.4); Mean Corpuscular Hemoglobin 32.7 pg (27.0-31.2); Mean Corpuscular Volume 97.1 fl (81-99); Mean Platelet Volume 8.6 fl (7.4-10.4); Monocytes % 6.2 % (1.7-9.3); Neutrophils # 12.3 K/mm3 (1.8-7.8); Neutrophils % 75.9 % (37.0-80.0); Platelet Count 224 K/mm3 (142-424); Red Blood Count 4.04 M/mm3 (4.20-5.40); Red Cell Distribution Width 12.8 % (11.5-17.5); White Blood Count 16.2 K/mm3 (4.8-10.8)
[2020-02-19 06:40] LABS: MANUAL DIFFERENTIAL MANUAL DIFFERENTIAL (MANUAL DIFF)
[2020-02-19 06:47] LABS: Chloride 107 mmol/L (98-107); Sodium 136 mmol/L (136-145)
[2020-02-19 06:48] LABS: Potassium 3.8 mmoL/L (3.5-5.1)
[2020-02-19 06:50] LABS: Blood Urea Nitrogen 11 mg/dl (7-17); Creatinine Clearance Estimated 120 mL/min (50-200); Estimated Glomerular Filt Rate 87 ml/min (>60); GFR (African American) 106 ML/MIN (>60)
[2020-02-19 06:51] LABS: Anion Gap 7.8 mEq/L (5-15); Carbon Dioxide 25 mmol/L (22.0-30.0); Glucose 103 mg/dl (74-100)
[2020-02-19 06:52] LABS: Calcium 8.6 mg/dl (8.4-10.2)
--- NOTE | 2020-02-19 07:00 | PC.NURSE ---
Report received from EL Collier.
--- NOTE | 2020-02-19 07:06 | PC.NURSE ---
Report given to Lex Barton RN
[2020-02-19 07:36] LABS: Lymphocytes % 15 % (10-50); Monocytes % 4 % (2-9); Neutrophils % 79 % (42-76); Platelet Estimate Normal; RBC Morphology Normal; Total Cells Counted 100
[2020-02-19 08:00] VITALS: BP 100/44; PULSE 58; RESP 15; TEMP 37.1; O2SAT 99
--- NOTE | 2020-02-19 08:03 | PC.NURSE ---
Resting w/o complaints. Reports passing gas throughout the night and ready to go home . Has not eaten breakfast yet.
--- NOTE | 2020-02-19 08:35 | PC.NURSE ---
Dr. Johnson at to see pt.
--- NOTE | 2020-02-19 08:40 | PC.NURSE ---
Old dressings removed from incisions. Incisions are well approximated with no s/s of infection. No active drainage. No bruising. Steri-strips also remain intact on each. Large bandaids applied to incisions. Reviewed incision care and s/s of infection with pt. Verbalized understanding.
--- NOTE | 2020-02-19 08:46 | HMH.DCSUM ---
General - General Admission date:: 02/18/20 Discharge date: 02/19/20 HPI HPI: She is a 24-year-old lady who complains of severe pelvic pain as well as severe dysmenorrhea. She has had a previous tubal ligation as well as endometrial ablation. Despite this she continued to have bleeding with her periods as well as severe pain with her periods. On examination her uterus was boggy and quite tender. I suspect she has adenomyosis. After having discussed the risks and benefits we elected perform a laparoscopically assisted vaginal hysterectomy. Hospital Course Hospital Course: On February 18, 2020 she underwent a laparoscopically assisted vaginal hysterectomy. She has done well postoperatively and has remained afebrile throughout her hospitalization. She is eating and drinking and ambulating. She is voiding well. She still has pain but she is taking narcotics as well as an anti-inflammatory for this pain. She denies any chest pain, shortness of breath or calf tenderness. Objective Vital signs: Temp Pulse Resp BP Pulse Ox 98.8 F 58 L 15 100/44 L 99 02/19/20 08:00 02/19/20 08:00 02/19/20 08:00 02/19/20 08:00 02/19/20 08:00 no acute distress - *Routine HEENT Exam Head: Present: normocephalic Eye: Present: EOMI, PERRL ENT: Present: mucous membranes moist - *Routine Neck Exam Present: supple - *Routine Respiratory Exam Present: CTA bilaterally - *Routine Cardiovascular Exam Present: RRR - *Routine Abdominal Exam Present: soft, normoactive bowel sounds. Absent: tenderness - *Routine Extremities Exam Absent: cyanosis, clubbing, edema Results Labs on day of discharge: Labs from last 24 hours 02/19/20 02/19/20 02/18/20 05:56 05:56 15:55 WBC 16.2 H D RBC 4.04 L Hgb 13.2 14.5 Hct 39.2 43.1 MCV 97.1 MCH 32.7 H MCHC 33.6 RDW 12.8 Plt Count 224 MPV 8.6 Neut % (Auto) 75.9 Lymph % (Auto) 17.3 [place] % (Auto) 6.2 Eos % (Auto) 0.3 Baso % (Auto) 0.2 Neut # (Auto) 12.3 H Lymph # (Auto) 2.8 [place] # (Auto) 1.0 Eos # (Auto) 0.1 Baso # (Auto) 0.0 Total Counted 100 Neutrophils % (Manual) 79 H Band Neutrophils % 2.0 Lymphocytes % (Manual) 15 Monocytes % (Manual) 4 Platelet Estimate Normal RBC Morphology Normal Sodium 136 Potassium 3.8 Chloride 107 Carbon Dioxide 25 Anion Gap 7.8 BUN 11 Creatinine 0.80 Estimated Creat Clear 120 Estimated GFR 87 Est GFR ( Amer) 106 Glucose 103 H Calcium 8.6 D Urine Color Urine Appearance Urine pH Ur Specific [place] Urine Protein Urine Glucose (UA) Urine Ketones Urine Blood Urine Nitrate Urine Bilirubin Urine Urobilinogen Ur Leukocyte Esterase Urine RBC Urine WBC Ur Squamous Epith Cells Urine Bacteria 02/18/20 09:28 WBC RBC Hgb Hct MCV MCH MCHC RDW Plt Count MPV Neut % (Auto) Lymph % (Auto) [place] % (Auto) Eos % (Auto) Baso % (Auto) Neut # (Auto) Lymph # (Auto) [place] # (Auto) Eos # (Auto) Baso # (Auto) Total Counted Neutrophils % (Manual) Band Neutrophils % Lymphocytes % (Manual) Monocytes % (Manual) Platelet Estimate RBC Morphology Sodium Potassium Chloride Carbon Dioxide Anion Gap BUN Creatinine Estimated Creat Clear Estimated GFR Est GFR ( Amer) Glucose Calcium Urine Color Yellow Urine Appearance Clear Urine pH 6.0 Ur Specific [place] >= 1.030 Urine Protein 2+ Urine Glucose (UA) Negative Urine Ketones Negative Urine Blood Trace-i Urine Nitrate Negative Urine Bilirubin Negative Urine Urobilinogen 0.2 Ur Leukocyte Esterase Negative Urine RBC None Urine WBC Occasional Ur Squamous Epith Cells Occasional Urine Bacteria None DS: Diagnosis - Discharge Diagnosis (1) Dysmenorrhea Status: Acute (2) Adenomyosis of uterus Status: Acute (3) Pelvic pain
[2020-02-19 09:08] VITALS: O2SAT 99
--- NOTE | 2020-02-22 12:41 | P.PN_ITS ---
[facility] Anesthesia Record Part II Discharge Time: 10:30 Destination: floor PACU nurse assessment reviewed?: Yes Patient Condition:: Good Anesthesia Complications:: None Swallowing reflex intact?: Yes Cyanosis?: No Blood Pressure: 109/54 Pulse Rate: 76 Temperature: 98.0 F Mental Status: Alert & Oriented Pain level:: 9 Nausea and/or vomitting:: None Intake, IV Amount: 2,000
[2020-02-22 12:42] VITALS: BP 109/54; PULSE 76; TEMP 36.7
== END 2020-02-19 10:00 | disposition home or self-care (01) ==
LOC: OB 07:07
PROVIDERS: Admitting Provider Nurse Practitioner Obstetrics & Gynecology; PCP Internal Medicine Adolescent Medicine; Visit Provider Nurse Practitioner Obstetrics & Gynecology
PROC: 0UT9FZZ Resection of Uterus, Via Natural or Artificial Opening With Percutaneous Endoscopic Assistance (ICD-10-PCS; CPT 58550; principal; 2020-02-18 08:45)
DX: N94.6 Dysmenorrhea, unspecified (principal); R10.2 Pelvic and perineal pain
CPT/HCPCS: 58550; 36415; 80048; 81001; 85007; 85014; 85018; 85025; 94761; 96374; G0378; J2405

== ENCOUNTER 2020-08-22 13:20 | Emergency (ER) | payer OTHER, SELFPAY ==
[2020-08-22 13:20] VITALS: BP 106/75; PULSE 89; RESP 19; TEMP 36.8; O2SAT 98; BMI 23.3
[2020-08-22 14:08] VITALS: BP 106/75; PULSE 89; RESP 19; TEMP 36.8; O2SAT 98
--- NOTE | 2020-08-22 14:09 | HMH.EDUTC ---
[facility] [place] Disposition Clinical Impression: Sinusitis Qualifiers: Sinusitis location: unspecified location Chronicity: acute Recurrence: non-recurrent Qualified Code(s): J01.90 - Acute sinusitis, unspecified Disposition: Home, Self-Care Condition on Discharge: Good Instructions: DI for Sinusitis Additional Instructions: Drink plenty of fluids. Take tylenol or ibuprofen for pain or fever. Take the medications as directed. Follow up with your regular doctor. GO TO THE ER FOR ANY WORSENING SYMPTOMS Prescriptions: Brompheniramine/Pseudoephed/Dm [Bromfed Dm Cough Syrup] 5 ml PO Q6HP PRN #240 syrup PRN Reason: Cough Transmission Status: Received by [facility] # predniSONE [Prednisone 20mg Tab] 20 mg PO BID 3 Days #6 tab Transmission Status: Received by [employer] [facility] # Azithromycin [Z-Jesse 250mg Tab*] 250 mg PO UD DOSE PK #6 tab Transmission Status: Received by [facility] [employer] [facility] # Referrals: Nely Pichardo APRN [Primary Care Provider] - Time of Disposition: 14:12 Medical Decision Making - Medical Records Medical records reviewed: No: I reviewed the patient's medical records. - [place] Inquiry Pt receiving controlled substance: No Vital Signs: 08/22/20 13:20 08/22/20 14:08 Temperature 98.3 F 98.3 F Temperature Source Oral Pulse Rate 89 Pulse Rate [Right Brachial] 89 Respiratory Rate 19 19 Blood Pressure 106/75 L Blood Pressure [Right Arm] 106/75 L Blood Pressure Mean [Right Arm] 85 Blood Pressure Source [Right Arm] Automatic Cuff Blood Pressure Position [Right Arm] Sitting 02 Sat by Pulse Oximetry 98 Oxygen Delivery Method Room Air - Lab Data Lab results reviewed: No: I reviewed the patient's lab results. [facility] [place] HPI - General Stated complaint: possible sinus infection Time Seen by Provider: 08/22/20 14:10 Mode of Arrival: Ambulatory Source of Information: Patient Limitations: No Limitations Description of Symptoms (Recalled from Triage Doc. by RN): PATIENT C/O PRODUCTIVE COUGH, SINUS PRESSURE, AND CHEST CONGESTION X 1 WEEK HEENT Symptoms (Recalled from RN notes): Yes Resp Symptoms (Recalled from RN notes): Yes Skin Symptoms (Recalled from RN notes): No MS Symptoms (Recalled from RN notes): No Functional Status (Recalled from RN notes): WNL - History of Present Illness Provider Complaint: She c/o sinus congestion and a cough for the past 1 week. She denies any covid exposure. She also states that her throat is sore. - Related Data Previous Rx's Medication Instructions Recorded Azithromycin [Z-Jesse 250mg Tab*] 250 mg PO UD DOSE PK #6 tab 08/22/20 Brompheniramine/Pseudoephed/Dm 5 ml PO Q6HP PRN #240 syrup 08/22/20 [Bromfed Dm Cough Syrup] predniSONE [Prednisone 20mg 20 mg PO BID 3 Days #6 tab 08/22/20 Tab] Allergies Allergy/AdvReac Type Severity Reaction Status Date / Time No Known Allergies Allergy Verified 04/02/20 14:43 - Worker's Comp Is this a Worker's Comp case?: No [facility] History - Hepatitis A Screen Drug use history?: No High risk sexual behaviors?: No History of sexually transmitted infection?: No Currently employed?: No Childcare worker?: No Do you have indoor plumbing?: Yes Do you have electricity?: Yes Attestation statement:: This patient has been screened for Hepatitis A risk factors. I have reviewed the patient's past medical history: Yes Medical History: Denies:: Cancer, Diabetes Mellitus Type 1, Diabetes Mellitus Type 2, Internal Pacemaker, MRSA, Seizures Other Medical History: Denies: Blood Transfusion Reaction Other Surgeries: Yes: , Dilation and Curettage, Hysterectomy-Total, Tubal Ligation, Other. No: Pacemaker Amputation: No Fractures: No Comment: Julita López Ablation 07/2018. hemorroid tear. [facility]2019 - Social History Smoking Status: Current every day smoker Tobacco Type: cigarettes # Packs/Day (cigarettes): 1 Alcohol Intake: never Alcohol Intake Frequency:: other Subs
== END 2020-08-22 14:10 | disposition home or self-care (01) ==
PROVIDERS: Emergency Provider Nurse Practitioner Family; PCP Nurse Practitioner Family
DX: J01.90 Acute sinusitis, unspecified (principal)
CPT/HCPCS: 99202; G0463

== ENCOUNTER 2020-09-04 09:57 | Emergency (ER) | payer OTHER, SELFPAY ==
[2020-09-04 10:00] VITALS: BP 129/73; PULSE 68; RESP 18; TEMP 36.8; O2SAT 100; BMI 21.5
[2020-09-04 10:22] LABS: Microscopic, Urine URINE MICROSCOPIC (MICROSCOPIC)
--- NOTE | 2020-09-04 10:24 | HMH.EDUTC ---
[facility] [place] Disposition Clinical Impression: Vaginal discharge Disposition: Home, Self-Care Condition on Discharge: Good Instructions: Trichomoniasis, Metronidazole, DI for Trichomoniasis Additional Instructions: No sexual activity until medication clears infection Take medication as prescribed with food it may cause stomach upset Make sure to follow up with your Family Doctor tomorrow as scheduled for further treatment and testing if needed Straight to ER if any life threatening symptoms Make sure to follow up for the results of your Hepatitis panel the results will be sent to your Family Doctor Prescriptions: metroNIDAZOLE [Flagyl 500mg Tablet] 500 mg PO BID 7 Days #14 tab Transmission Status: Received by [facility] #[id number] Nystatin [Nystatin Susp 500,000 Units/5mL Udc] 4 - 6 ml PO QID 10 Days #240 udc Transmission Status: Received by [employer] #[id number] Referrals: Nely Pichardo APRN [Primary Care Provider] - 09/05/20 10:15 am (You have an appointment on 09/05/[address] Judge at 1015) Time of Disposition: 11:19 Medical Decision Making - Napoleon Inquiry Pt receiving controlled substance: No Napoleon was queried for this patient: No Vital Signs: 09/04/20 10:00 09/04/20 10:29 Temperature 98.3 F 98.3 F Temperature Source Oral Pulse Rate 68 Pulse Rate [Right Brachial] 68 Respiratory Rate 18 18 Blood Pressure 129/73 Blood Pressure [Right Arm] 129/73 Blood Pressure Mean [Right Arm] 91 Blood Pressure Source [Right Arm] Automatic Cuff Blood Pressure Position [Right Arm] Sitting 02 Sat by Pulse Oximetry 100 Oxygen Delivery Method Room Air - Lab Data Lab results reviewed: Yes: I reviewed the patient's lab results. Lab Results 09/04/20 10:10: Urine Color Dk yellow, Urine Appearance Sl cloudy, Urine pH 6.0, Ur Specific [place] 1.025, Urine Protein 1+, Urine Glucose (UA) Negative, Urine Ketones Trace, Urine Blood Trace-i, Urine Nitrate Negative, Urine Bilirubin 2+ A, Urine Urobilinogen 1.0, Ur Leukocyte Esterase Negative, Urine RBC Occasional, Urine WBC None, Ur Squamous Epith Cells None, Urine Bacteria None, Urine Mucus Trace, Urine Trichomonas 2+ 09/04/20 10:11: Urine Color Dark yellow, Urine Appearance Clear, Urine pH 6.0, Ur Specific [place] 1.025, Urine Protein 1+, Urine Glucose (UA) Negative, Urine Ketones 15, Urine Blood Trace, Urine Nitrate Negative, Urine Bilirubin 2+ A, Urine Urobilinogen 0.2, Ur Leukocyte Esterase Negative Orders (Tests/Meds): ORDERS Category Date Time Status Hepatitis Panel (4) Stat Lab 09/04/20 10:58 Received - Physician Consults Physician Consulted: Mercy Pichardo office Time: 10:44 Reason -: Other Comment/Response: Called PCP office to get appointment for patient for follow up Spoke with Emanuel and patient was given appointment for tomorrow 09/05/[address] Judge Medical Decision Narrative: Bilirubin noted in urine Patient denies pain, Denies history of liver problems Discussed with patient about the finding in the urine and discussed transfer to the ED for more extensive lab work Patient advised that she would follow up with her PCP for further lab testing and evaluation Patient states that she has not been eating or drinking well but denies abdominal pain States that she has been under stress. Again spoke with patient about transfer for more extensive lab work and patient declined but agreed to have Hep panel completed and she agreed to follow up with PCP tomorrow for further lab work and examination Discussed with patient about finding of Trich 2+ in urine and treatment discussed with pharmacy Will start patient on Flagyl 500mg BID and have patient follow up with PCP for further testing due to bilirubin in urine [facility] [place] HPI - General Stated complaint: vaginal odor, possible thrush Time Seen by Provider: 09/04/20 10:24 Mode of Arrival: Ambulatory Source of Information: Patient Limitations: No Limitations Description of Symptoms (Recalled from Triage Doc. by Grisel
[2020-09-04 10:25] LABS: Apearance,Urine Clear (Clear); Bilirubin,Urine 2+ (Negative); Blood, Urine Trace (Negative); Color,Urine Dark Yellow (Yellow); Glucose,Urine (UA) Negative (Negative); Ketones,Urine 15 (Negative); Protein,Urine 1+ (Negative); Specific Gravity, Urine 1.025 (1.005-1.030)
[2020-09-04 10:26] LABS: UTC Leukocyte Esterase,Urine Negative (Negative); UTC Nitrate,Urine Negative (Negative); Urobilinogen,Urine 0.2 EU/dl (0.2)
[2020-09-04 10:29] VITALS: BP 129/73; PULSE 68; RESP 18; TEMP 36.8; O2SAT 100
[2020-09-04 10:29] LABS: Appearance,Urine SL CLOUDY (Clear); Blood, Urine TRACE-I (Negative); Color,Urine DK YELLOW (Yellow); Glucose,Urine (UA) Negative (Negative); Ketones,Urine TRACE (Negative); Leukocyte Esterase,Urine Negative (Negative); Nitrate,Urine Negative (Negative); Protein,Urine 1+ (Negative); Specific Gravity, Urine 1.025 (1.005-1.030)
[2020-09-04 10:34] LABS: Bilirubin,Urine 2+ (Negative)
[2020-09-04 10:43] LABS: RBC,Urine Occasional #/hpf (0-3)
[2020-09-04 10:44] LABS: Mucus,Urine Trace /lpf
[2020-09-04 10:54] LABS: Trichomonas,Urine 2+ /lpf
[2020-09-05 10:53] LABS: Hep A Ab, IgM Negative (Negative); Hepatitis B Core Antibody IgM Negative (Negative); Hepatitis B Surface Antigen Negative (Negative); Hepatitis C Antibody <0.1 s/co ratio (0.0-0.9)
[2020-09-05 17:57] LABS: Neisseria gonorrhoeae, NAA Negative (Negative)
== END 2020-09-04 11:23 | disposition home or self-care (01) ==
PROVIDERS: Emergency Provider Nurse Practitioner; PCP Nurse Practitioner Family
DX: N76.0 Acute vaginitis (principal); F17.210 Nicotine dependence, cigarettes, uncomplicated
CPT/HCPCS: 80074; 81001; 81003; 87491; 87591; 99202; G0463

== ENCOUNTER → 2020-09-05 11:35 | Outpatient (CLI) | payer OTHER, SELFPAY ==
[2020-09-06 09:55] LABS: HIV Screen 4th Generation wRfx Non Reactive (Non Reactive)
== END ==
PROVIDERS: Visit Provider Internal Medicine Adolescent Medicine
DX: A64 Unspecified sexually transmitted disease (principal); Z11.4 Encounter for screening for human immunodeficiency virus [HIV]
CPT/HCPCS: 36415; 86703; G0432

== ENCOUNTER → 2020-11-27 11:17 | Outpatient (CLI) | payer OTHER, SELFPAY ==
--- NOTE | 2020-11-27 11:21 | XR_ITS ---
PROCEDURE: XR MANDIBLE MIN 4V CLINICAL INDICATION: JAW PAIN,JAW DEFORMITY COMPARISON: No exams were available for comparison FINDINGS: No fracture or dislocation. No lytic or blastic change. There is normal mineralization. The TMJ joints are not well displayed on this exam and would be better demonstrated with CT Other findings:None. IMPRESSION: Negative mandible. Consider CT for better evaluation of the TMJs if clinically warranted. Dictated by: Yared Crews MD 11/27/2020 12:41 Yared Crews MD in [place] 11/27/2020 12:41
== END ==
PROVIDERS: PCP Nurse Practitioner Family; Visit Provider Nurse Practitioner Family
DX: R68.84 Jaw pain (principal); M26.9 Dentofacial anomaly, unspecified
CPT/HCPCS: 70110

== ENCOUNTER 2021-03-24 07:46 | Outpatient (RCR) | payer OTHER, SELFPAY ==
--- NOTE | 2021-03-24 09:23 | HMH.PTOPEV ---
PT Outpatient Evaluation Rehab PT Outpatient Evaluation Start: 03/24/21 07:55 Freq: Status: Active Protocol: Document 03/24/21 09:14 PHOKVNG (Rec: 03/24/21 09:23 PHORNE [id number]) Electronically Signed By Andrew Christopher, PT 03/24/21 09:14 Outpatient Therapy Subjective History Subjective History Pt is 25 yowf who presents with c/o R side low back pain x ~ 6 mos with insidious onset of symptoms. She reports pain is, sharp with pressure and just feels like something needs to pop. She reports prior hx of low back pain with radicular numbness several years ago, but her current symptoms are much different. She reports no significant PMH . Chief Complaint Pain Symptom Type Sharp Symptoms Relieved By Nothing Symptoms Aggravated By Sitting,Standing Prior Functional Limitations None Current Functional Limitations Standing,Sitting,Recreation Activity Symptom Description Activity Dependent Level of pain today (0-10) 5 Pain scale - at its worst (0-10) 9 Lumbopelvic Eval Posture Thoracic Spine Posture Standing Position Neutral Lumbar Spine Posture Standing Position Neutral Palapation tenderness right thoracic spinal tenderness No lumbar spinal tenderness No paraspinal tenderness No buttock tenderness No Lumbar/Sacral Palpation Findings Tenderness Lumbar/Sacral Palpation Overall Comment R SI and R quad lumborum Range of Motion Lumbar Spine ROM Reason Not Measured Within Functional Limits Manual Muscle Test Bilateral Knee Extension Strength Grade 5 Normal Knee Flexion Strength Grade 5 Normal Hip Flexion Strength Grade 5 Normal Hip Abduction Strength Grade 5 Normal Hip Adduction Strength Grade 5 Normal Hip External Rotation Strength Grade 5 Normal Hip Internal Rotation Strength Grade 5 Normal Hip Extension Strength Grade 5 Normal Gluteus Allen Strength Grade 5 Normal Extensor Hallucis Longus Strength Grade 5 Normal Ankle Dorsiflexion Strength Grade 5 Normal Gastronemius/Soleus Strength Grade 5 Normal Special Tests Forward Bending Test- Standing Negative Left,Negative Right Hip Scouring (Quadrant) Test Negative Left,Negative Right Hip John (LUZ MARINA) Test Negative Left,Negative Right Hip Piriformis Test Negative Left,Negative Right Sciatic Nerve Tension Test Negative Left,Negative Right Unilateral Straight Leg Raise (Lasegue) Negative Left,Negative Right Te
== END 2021-03-24 07:50 | disposition home or self-care (01) ==
LOC: PT 07:46
PROVIDERS: PCP Nurse Practitioner Family; Visit Provider Nurse Practitioner Family
DX: M54.41 Lumbago with sciatica, right side (principal)
CPT/HCPCS: 97163

== ENCOUNTER → 2021-04-02 07:43 | Outpatient (CLI) | payer OTHER, SELFPAY ==
--- NOTE | 2021-04-02 07:47 | CT_ITS ---
FINAL REPORT TECHNIQUE: Thin section axial CT images of the facial bones and sinuses were obtained without contrast. Coronal reformatted images were also obtained. This study was performed with techniques to keep radiation doses as low as reasonably achievable, (ALARA). Individualized dose reduction techniques using automated exposure control or adjustment of mA and/or kV according to the patient's size were employed. CLINICAL HISTORY: HYPERPLASIA OF MANDIBULAR CONDYLE LEFT SIDE FINDINGS: CT SINUSES There is no evidence of mucosal thickening. No fluid levels are identified. The mastoid air cells are well aerated. The ostiomeatal units have an unremarkable appearance. The nasal septum is in the midline. No fracture or acute bony abnormality is identified. On the sagittal reconstructed images the mandibular condyles appear symmetric and unremarkable. IMPRESSION: Mandibular condyles appear symmetric and unremarkable. No focal abnormality identified of the sinuses. Reviewed, Interpreted and Dictated by Ravindra Mariano MD Transcribed by Emilie Callaway Authenticated by Ravindra Mariano MD on 04/02/2021 10:07:41 AM [facility]
== END ==
PROVIDERS: PCP Nurse Practitioner Family; Visit Provider Dentist Oral and Maxillofacial Surgery
DX: M26.03 Mandibular hyperplasia (principal)
CPT/HCPCS: 70486

== ENCOUNTER 2021-06-02 18:08 | Emergency (ER) | payer OTHER, SELFPAY ==
[2021-06-02 19:54] VITALS: BP 131/70; PULSE 76; RESP 22; TEMP 37; O2SAT 100; BMI 25.0
[2021-06-02 20:06] LABS: Apearance,Urine Clear (Clear); Bilirubin,Urine Negative (Negative); Blood, Urine Negative (Negative); Color,Urine Yellow (Yellow); Glucose,Urine (UA) Negative (Negative); Ketones,Urine Negative (Negative); PH,Urine 6.5 (5.0-8.5); Protein,Urine Negative (Negative); Specific Gravity, Urine 1.025 (1.005-1.030); UTC Leukocyte Esterase,Urine Negative (Negative); UTC Nitrate,Urine Negative (Negative); Urobilinogen,Urine 0.2 EU/dl (0.2)
--- NOTE | 2021-06-02 20:14 | HMH.EDUTC ---
[facility] – [place] Disposition Clinical Impression: Burning with urination UTI (urinary tract infection) Qualifiers: Urinary tract infection type: site unspecified Hematuria presence: without hematuria Qualified Code(s): N39.0 - Urinary tract infection, site not specified Disposition: Home, Self-Care Condition on Discharge: Good Instructions: DI for Urinary Tract Infection (UTI), DI for Chronic Pain -- Adult Additional Instructions: *Increase fluids. Water not Soda or Tea *Start antibiotic immediately and be sure to take as ordered for the FULL length of time although you should start to see improvement over the next 48 hours *Pyridium as needed Remember this medication will turn your urine [place]. This is normal but it will stain what ever it gets on *You should not use Pyridium for more than 48 hours. If so , follow up with your primary physician to review urine culture and ensure that antibiotic is adequate for infection *Be SURE to follow up anytime for new or worsening symptoms with your family doctor. AND in 48 hours for urine culture results with your family doctor, if you do not have a doctor then you may call back to the [facility] for urine culture results and further treatment. We do recommend that you choose and establish care with a Primary Care Physician. AND follow up with them in 10-14 days to repeat UA to ensure infection is resolved and blood no longer present *Be sure to let your PCP know that we sent urine cultures from the [facility] so they can follow up to ensure that you area the on the correct antibiotic Call your doctor office and make appointment for 48 hours (2 days from today) to follow up and get the results of your urine culture and further treatment Prescriptions: cephALEXin [cephALEXin 500mg capsule*] 500 mg PO BID 5 Days #10 cap Transmission Status: Received by [employer] #[id number] Phenazopyridine HCl [Pyridium 200mg Tablet] 200 pow PO TID #6 tab Transmission Status: Received by [employer] #[id number] Referrals: Edwin Hackett MD [Primary Care Provider] - As needed Time of Disposition: 20:30 Medical Decision Making - Napoleon Inquiry Pt receiving controlled substance: No Napoleon was queried for this patient: No Vital Signs: 06/02/21 19:54 Temperature 98.6 F Temperature Source Oral Pulse Rate [Left] 76 Respiratory Rate 22 Blood Pressure [Right Arm] 131/70 Blood Pressure Mean [Right Arm] 90 02 Sat by Pulse Oximetry 100 - Lab Data Lab results reviewed: Yes: I reviewed the patient's lab results. Lab Results 06/02/21 19:53: Urine Color Yellow, Urine Appearance Clear, Urine pH 6.5, Ur Specific [place] 1.025, Urine Protein Negative, Urine Glucose (UA) Negative, Urine Ketones Negative, Urine Blood Negative, Urine Nitrate Negative, Urine Bilirubin Negative, Urine Urobilinogen 0.2, Ur Leukocyte Esterase Negative Orders (Tests/Meds): ED MEDICATIONS Discontinued Medications Generic Name Dose Route Start Last Admin Trade Name Parvin PRN Reason Stop Dose Admin Cephalexin HCl 500 mg 06/02/21 20:19 06/02/21 20:21 Cephalexin 500mg Capsule PO 06/02/21 20:20 500 mg ONCE ONE Administration Phenazopyridine HCl 200 mg 06/02/21 20:19 06/02/21 20:21 Phenazopyridine 200mg Tablet PO 06/02/21 20:20 200 mg ONCE ONE Administration [facility] [place] HPI - General Stated complaint: feeling like she has to pee but doesn't need to Time Seen by Provider: 06/02/21 20:15 Mode of Arrival: Ambulatory Source of Information: Patient Limitations: No Limitations Description of Symptoms (Recalled from Triage Doc. by RN): pt c/o urinary frequency. x2 days. HEENT Symptoms (Recalled from RN notes): No Resp Symptoms (Recalled from RN notes): No Skin Symptoms (Recalled from RN notes): No MS Symptoms (Recalled from RN notes): No Functional Status (Recalled from RN notes): wnl - History of Present Illness Provider Complaint: Patient states that she has been having urinary urgency and frequency for the l
[2021-06-02 20:37] VITALS: BP 131/70; PULSE 76; RESP 22; TEMP 37
== END 2021-06-02 21:25 | disposition home or self-care (01) ==
PROVIDERS: Emergency Provider Nurse Practitioner; PCP Internal Medicine Adolescent Medicine
DX: N30.00 Acute cystitis without hematuria (principal); F17.210 Nicotine dependence, cigarettes, uncomplicated
CPT/HCPCS: 81003

== ENCOUNTER 2021-09-02 20:56 | Emergency (ER) | payer OTHER, SELFPAY ==
[2021-09-02 21:06] VITALS: BP 120/76; PULSE 60; RESP 16; TEMP 36.8; O2SAT 100; BMI 22.9
[2021-09-02 21:07] VITALS: PULSE 73; O2SAT 100
[2021-09-02 21:18] LABS: Microscopic, Urine URINE MICROSCOPIC (MICROSCOPIC)
[2021-09-02 21:26] LABS: Basophils # 0.4 K/mm3 (0-0.2); Basophils % 4.4 % (0.1-2.0); Eosinophils # 0.4 K/mm3 (0.0-0.4); Eosinophils % 4.7 % (0.1-12.0); Hematocrit 48.7 % (37.0-47.0); Lymphocytes # 2.8 K/mm3 (0.7-4.5); Lymphocytes % 33.8 % (10-50); Mean Corpuscular HGB Conc 30.8 g/dL (31.8-35.4); Mean Corpuscular Volume 103.7 fl (81-99); Mean Platelet Volume 8.1 fl (7.4-10.4); Monocytes # 0.5 K/mm3 (0.1-1.0); Monocytes % 5.7 % (1.7-9.3); Neutrophils # 4.3 K/mm3 (1.8-7.8); Neutrophils % 51.4 % (37.0-80.0); Platelet Count 298 K/mm3 (142-424); Red Blood Count 4.69 M/mm3 (4.20-5.40); Red Cell Distribution Width 12.7 % (11.5-17.5); White Blood Count 8.3 K/mm3 (4.8-10.8)
--- NOTE | 2021-09-02 21:30 | CT_ITS ---
PROCEDURE INFORMATION: Exam: CT Abdomen And Pelvis Without Contrast Exam date and time: 09/02/2021 9:37 PM Age: 26 years old Clinical indication: Generalized; Prior surgery; Surgery date: 6+ months; Surgery type: Partial hysterectomy; Patient HX: Mid abdominal pain. TECHNIQUE: Imaging protocol: Computed tomography of the abdomen and pelvis without contrast. Radiation optimization: All CT scans at this facility use at least one of these dose optimization techniques: automated exposure control; mA and/or kV adjustment per patient size (includes targeted exams where dose is matched to clinical indication); or iterative reconstruction. [facility] con 08/31/2018 3:39 PM FINDINGS: Liver: Normal. Gallbladder and bile ducts: Normal Pancreas: Normal. Spleen: Normal. Adrenal glands: Normal. No mass. Kidneys and ureters: Normal. Stomach and bowel: Several loops of nondilated, fluid-filled, minimally thickened proximal small bowel, likely infectious/inflammatory enteritis. Appendix: Appendix normal. Intraperitoneal space: Unremarkable. No free air. No significant fluid collection. Vasculature: Unremarkable. No abdominal aortic aneurysm. Lymph nodes: Unremarkable. No enlarged lymph nodes. Urinary bladder: Unremarkable as visualized. Reproductive: Changes of prior bilateral tubal ligation. Changes of prior partial hysterectomy. Bones/joints: No acute abnormality. Soft tissues: Normal. IMPRESSION: Several loops of nondilated, fluid-filled, minimally thickened proximal small bowel, likely infectious/inflammatory enteritis.
--- NOTE | 2021-09-02 21:33 | PC.NURSE ---
PT ASKED TO REMOVE ALL METAL FROM THE WAIST UP FOR CT OF ABD/PELVIS.
--- NOTE | 2021-09-02 21:34 | PC.NURSE ---
Pt given warm blanket for comfort. No other needs at this time.
[2021-09-02 21:38] LABS: Appearance,Urine CLEAR (Clear); Bilirubin,Urine Negative (Negative); Blood, Urine Negative (Negative); Color,Urine YELLOW (Yellow); Glucose,Urine (UA) Negative (Negative); Ketones,Urine Negative (Negative); Leukocyte Esterase,Urine Negative (Negative); Nitrate,Urine Negative (Negative); Protein,Urine Negative (Negative); Specific Gravity, Urine 1.025 (1.005-1.030); Urobilinogen,Urine 0.2 EU/dl (0.2)
[2021-09-02 21:39] LABS: Chloride 106 mmol/L (98-107); Sodium 139 mmol/L (136-145)
--- NOTE | 2021-09-02 21:39 | PC.NURSE ---
Pt gone to RAD
--- NOTE | 2021-09-02 21:40 | HMH.EDNVD ---
ED Disposition Clinical Impression: Enteritis Abdominal pain Qualifiers: Abdominal location: lower abdomen, unspecified Qualified Code(s): R10.30 - Lower abdominal pain, unspecified Disposition: Home, Self-Care Condition on Discharge: Fair Instructions: DI for Acute Abdominal Pain Additional Instructions: fluids and see pcp for follow up Referrals: Nely Pichardo APRN [Primary Care Provider] - - Critical Care Critical Care Time: No Attestation: On 09/02/21, the high probability of a clinically significant, sudden or life threatening deterioration of the following system(s) required my full and direct attention, intervention and personal management. The time I documented below is in addition to time spent performing reported procedures but includes the following listed in this critical care notation. Medical Decision Making - Medical Records Medical records reviewed: Yes: I reviewed the patient's medical records. - Napoleon Inquiry Pt receiving controlled substance: No Vital Signs: 09/02/21 21:06 09/02/21 21:07 09/02/21 22:13 Temperature 98.2 F Temperature Source Oral Pulse Rate 73 64 Pulse Rate [Left Radial] 60 Respiratory Rate 16 Blood Pressure 116/69 Blood Pressure [Right Arm] 120/76 Blood Pressure Mean 84 Blood Pressure Mean [Right Arm] 90 Blood Pressure Source [Right Arm] Automatic Cuff 02 Sat by Pulse Oximetry 100 100 100 Oxygen Delivery Method Room Air Room Air 09/02/21 22:30 Temperature Temperature Source Pulse Rate 59 L Pulse Rate [Left Radial] Respiratory Rate Blood Pressure 113/69 Blood Pressure [Right Arm] Blood Pressure Mean 83 Blood Pressure Mean [Right Arm] Blood Pressure Source [Right Arm] 02 Sat by Pulse Oximetry 100 Oxygen Delivery Method Room Air - Lab Data Lab results reviewed: Yes: I reviewed the patient's lab results. Lab Results 09/02/21 21:08: Urine Color Yellow, Urine Appearance Clear, Urine pH 7.0, Ur Specific [place] 1.025, Urine Protein Negative, Urine Glucose (UA) Negative, Urine Ketones Negative, Urine Blood Negative, Urine Nitrate Negative, Urine Bilirubin Negative, Urine Urobilinogen 0.2, Ur Leukocyte Esterase Negative, Urine WBC Occasional, Ur Squamous Epith Cells 3-5, Amorphous Sediment Trace, Urine Bacteria Trace 09/02/21 21:08: WBC 8.3, RBC 4.69, Hgb 15.0, Hct 48.7 H, MCV 103.7 H, MCH 32.0 H, MCHC 30.8 L, RDW 12.7, Plt Count 298, MPV 8.1, Neut % (Auto) 51.4, Lymph % (Auto) 33.8, [place] % (Auto) 5.7, Eos % (Auto) 4.7, Baso % (Auto) 4.4 H, Neut # (Auto) 4.3, Lymph # (Auto) 2.8, [place] # (Auto) 0.5, Eos # (Auto) 0.4, Baso # (Auto) 0.4 H, ESR 2 09/02/21 21:08: Sodium 139, Potassium 4.0, Chloride 106, Carbon Dioxide 28, Anion Gap 9.0, BUN 12, Creatinine 0.80, Estimated Creat Clear 121, Estimated GFR 86, Est GFR ( Amer) 104, Glucose 94, Calcium 9.6, Total Bilirubin 0.4, AST 28, ALT 23, Alkaline Phosphatase 58, C-Reactive Protein 0.5, Total Protein 7.3, Albumin 4.7, Globulin 2.6, Albumin/Globulin Ratio 1.8, Amylase 74, Lipase 56, Procalcitonin 0.039 Result diagrams: 09/02/21 21:08 09/02/21 21:08 Orders (Tests/Meds): ED MEDICATIONS Generic Name Dose Route Start Last Admin Trade Name Freq PRN Reason Stop Dose Admin Sodium Chloride 1,000 mls @ 999 mls/hr 09/02/21 21:15 09/02/21 21:26 Sod Chlor 0.9% 1000ml Bag IV 09/02/21 22:15 999 mls/hr .Q1H1M LUIS F Administration Sodium Chloride 10 ml 09/02/21 21:11 09/02/21 21:27 Sodium Chloride 0.9% 10ml Flush Syringe IV 10/02/21 21:10 10 ml NEEDED PRN Administration Maintain IV Site Sodium Chloride 8 ml 09/02/21 21:15 Sodium Chloride 0.9% 10ml Vial IV 10/02/21 21:14 NEEDED PRN dilute pepcid Discontinued Medications Generic Name Dose Route Start Last Admin Trade Name Freq PRN Reason Stop Dose Admin Famotidine 20 mg 09/02/21 21:15 09/02/21 21:27 Famotidine 20mg/2ml Vial IV 09/02/21 21:16 20 mg ONCE ONE Administration Ketorol
[2021-09-02 21:42] LABS: Alanine Aminotransferase 23 U/L (12-78); Alkaline Phosphatase 58 U/L (38-126); Amylase 74 U/L (30-110); Aspartate Amino Transferase 28 U/L (14-36); Bilirubin,Total 0.4 mg/dl (0.2-1.3); Blood Urea Nitrogen 12 mg/dl (7-17); Calcium 9.6 mg/dl (8.4-10.2); Carbon Dioxide 28 mmol/L (22.0-30.0); Creatinine Clearance Estimated 121 mL/min (50-200); Estimated Glomerular Filt Rate 86 ml/min (>60); GFR (African American) 104 ML/MIN (>60); Glucose 94 mg/dl (74-100); Lipase 56 U/L (23-300)
[2021-09-02 21:43] LABS: Albumin Level 4.7 g/dl (3.5-5.0); Albumin/Globulin Ratio 1.8 (1.1-1.8); Globulin 2.6 g/dL (1.3-3.2); Total Protein,Serum 7.3 g/dl (6.3-8.2)
--- NOTE | 2021-09-02 21:45 | PC.NURSE ---
Pt back from RAD
[2021-09-02 21:48] LABS: C-Reactive Protein 0.5 mg/L (0-4)
[2021-09-02 22:04] LABS: Procalcitonin 0.039 ng/mL (0.0-2.0)
[2021-09-02 22:09] LABS: Amorphous Sediment,Urine Trace /lpf; Bacteria,Urine Trace /lpf; WBC,Urine Occasional #/hpf (0-3)
[2021-09-02 22:13] VITALS: BP 116/69; PULSE 64; O2SAT 100
--- NOTE | 2021-09-02 22:13 | PC.NURSE ---
Pt made aware that we are waiting on her scan report. Warm blanket given. No new needs.
[2021-09-02 22:30] VITALS: BP 113/69; PULSE 59; O2SAT 100
[2021-09-02 22:33] LABS: Erythrocyte Sedimentation Rate 2 mm/hr (0-20)
[2021-09-02 22:40] VITALS: BP 113/69; PULSE 72; RESP 17; TEMP 36.7; O2SAT 100
== END 2021-09-02 22:46 | disposition home or self-care (01) ==
PROVIDERS: Emergency Provider Emergency Medicine; PCP Nurse Practitioner Family
DX: K52.9 Noninfective gastroenteritis and colitis, unspecified (principal)
CPT/HCPCS: 74176; 80053; 81001; 82150; 83690; 84145; 85025; 85651; 86140; 96365; 96375; 99284; J2405

== ENCOUNTER → 2021-09-04 19:27 | Outpatient (CLI) | payer OTHER, SELFPAY ==
[2021-09-04 19:38] LABS: Adenovirus F 40/41, stool Not Detected (NotDetected); Astrovirus Not Detected (NotDetected); Campylobacter Not Detected (NotDetected); Cryptosporidium Not Detected (NotDetected); Cyclospora Cayetanesis Not Detected (NotDetected); Entamoeba histolytica Not Detected (NotDetected); Enteroaggregative E coli Not Detected (NotDetected); Enteropathogenic E coli Not Detected (NotDetected); Enterotoxigenic E coli Not Detected (NotDetected); Giardia lamblia Not Detected (NotDetected); Norovirus Not Detected (NotDetected); Plesimonas Shigalloides, PCR Not Detected (NotDetected); Rotavirus A Not Detected (NotDetected); Salmonella, PCR Not Detected (NotDetected); Shiga-like toxin E coli Not Detected (NotDetected); Shigella Enterovasive E coli Not Detected (NotDetected); Vibrio Cholerae Not Detected (NotDetected); Vibrio, PCR Not Detected (NotDetected); Yersinia Entercolitica, PCR Not Detected (NotDetected)
[2021-09-04 22:24] LABS: Clostridium Difficile A/B, PCR Detected (NotDetected)
[2021-09-04 22:25] LABS: Sapovirus Detected (NotDetected)
== END ==
PROVIDERS: PCP Nurse Practitioner Family; Visit Provider Emergency Medicine
DX: K52.89 Other specified noninfective gastroenteritis and colitis (principal); A04.72 Enterocolitis due to Clostridium difficile, not specified as recurrent; A08.11 Acute gastroenteropathy due to Norwalk agent
CPT/HCPCS: 87507

== ENCOUNTER 2021-09-06 14:35 | Emergency (ER) | payer OTHER, SELFPAY ==
[2021-09-06 15:35] VITALS: BP 123/65; PULSE 120; RESP 18; TEMP 37; O2SAT 97; BMI 22.9
--- NOTE | 2021-09-06 15:40 | HMH.EDUTC ---
[facility] [place] Disposition Clinical Impression: Viral syndrome Disposition: Home, Self-Care Condition on Discharge: Good Instructions: DI for Viral Syndrome, DI for COVID-19 (Suspected or Confirmed ), Preventing the Spread of Coronavirus Discharge Instructions Additional Instructions: Drink plenty of fluids. Take tylenol or ibuprofen for pain or fever. Take the medications as directed. Follow up with your regular doctor. GO TO THE ER FOR ANY WORSENING SYMPTOMS Quarantine until you know the results of your covid-19 test. Notify your school or workplace of your results and follow their instructions regarding return to work/school. Prescriptions: Ibuprofen [Ibuprofen 800mg Tablet] 800 mg PO Q8HP PRN #30 tab PRN Reason: Moderate Pain Transmission Status: Received by [employer] #[id number] Ondansetron [Zofran 4mg ODT] 4 mg PO Q8HP PRN #20 tab PRN Reason: Nausea Transmission Status: Received by [employer] #[id number] Referrals: Nely Pichardo APRN [Primary Care Provider] - Forms: Work/School Release Time of Disposition: 15:42 Medical Decision Making - Medical Records Medical records reviewed: No: I reviewed the patient's medical records. - Napoleon Inquiry Pt receiving controlled substance: No Vital Signs: 09/06/21 15:35 09/06/21 15:52 Temperature 98.6 F 98.6 F Temperature Source Oral Pulse Rate 120 H Pulse Rate [Left] 120 H Respiratory Rate 18 18 Blood Pressure 123/65 Blood Pressure [Right Arm] 123/65 Blood Pressure Mean [Right Arm] 84 02 Sat by Pulse Oximetry 97 - Lab Data Lab results reviewed: Yes: I reviewed the patient's lab results. Lab Results 09/06/21 15:28: Chlamy pneumoniae PCR Not detected, Adenovirus (PCR) Not detected, B. pertussis DNA (PCR) Not detected, Coronavirus OC43 (PCR) Not detected, Coronavirus HKU1 (PCR) Not detected, Coronavirus 229E (PCR) Not detected, SARS-CoV-2 (PCR) Detected A, Coronavirus NL63 (PCR) Not detected, Human Metapneumovir PCR Not detected, Influenza A (H1) PCR Not detected, Influ A (H1N1/09) PCR Not detected, Influenza A (H3) PCR Not detected, Influenza Type A (PCR) Not detected, Influenza Type B (PCR) Not detected, M. pneumoniae (PCR) Not detected, Parainfluenza 1 (PCR) Not detected, Parainfluenza 2 (PCR) Not detected, Parainfluenza 3 (PCR) Not detected, Parainfluenza 4 (PCR) Not detected, RSV (PCR) Not detected, Entero/Rhino (PCR) Not detected [facility] [place] HPI - General Stated complaint: bodyaches, chills, fever Time Seen by Provider: 09/06/21 15:40 - History of Present Illness Provider Complaint: She statse that she has had malaise, head ache and a dry cough for the past 1 day. - Related Data Previous Rx's Medication Instructions Recorded Ibuprofen [Ibuprofen 800mg 800 mg PO Q8HP PRN #30 tab 09/06/21 Tablet] Ondansetron [Zofran 4mg ODT] 4 mg PO Q8HP PRN #20 tab 09/06/21 Allergies Allergy/AdvReac Type Severity Reaction Status Date / Time No Known Allergies Allergy Verified 04/02/20 14:43 [facility] History - Hepatitis A Screen Attestation statement:: This patient has been screened for Hepatitis A risk factors. I have reviewed the patient's past medical history: Yes Medical History: Denies:: Cancer, Diabetes Mellitus Type 1, Diabetes Mellitus Type 2, Internal Pacemaker, MRSA, Seizures Other Medical History: Denies: Blood Transfusion Reaction Other Surgeries: Yes: , Dilation and Curettage, Hysterectomy-Total, Tubal Ligation, Other. No: Pacemaker Amputation: No Fractures: No Comment: Nova Sure Ablation 07/2018. hemorroid tear. [facility]2019 - Social History Smoking Status: Current every day smoker Tobacco Type: cigarettes # Packs/Day (cigarettes): 1 Alcohol Intake: never Alcohol Intake Frequency:: other Substance Use Type: denies use Occupational Status: other Housing: house Household Members: family, children Family Hx:: No significant family history [employer]AM[employer] history: Spontaneou
[2021-09-06 15:48] LABS: Adenovirus,PCR Not Detected (NotDetected); Bordetella Pertussis Not Detected (NotDetected); Chlamydophila Pneumoniae, PCR Not Detected (NotDetected); Coronavirus 229E Not Detected (NotDetected); Coronavirus NL63 Not Detected (NotDetected); Coronavirus OC43 Not Detected (NotDetected); Coronovirus HKU1,PCR Not Detected (NotDetected); Human Metapneumovirus Not Detected (NotDetected); Influenza A, PCR Not Detected (NotDetected); Influenza AH1, 2009 Not Detected (NotDetected); Influenza AH1, PCR Not Detected (NotDetected); Influenza AH3,PCR Not Detected (NotDetected); Influenza B, PCR Not Detected (NotDetected); Mycoplasma Pneumoniae, PCR Not Detected (NotDetected); Parainfluenza 1, PCR Not Detected (NotDetected); Parainfluenza 2, PCR Not Detected (NotDetected); Parainfluenza 3, PCR Not Detected (NotDetected); Parainfluenza 4, PCR Not Detected (NotDetected); Respiratory Syncytial Virus Not Detected (NotDetected); Rhinovirus/Enterovirus Not Detected (NotDetected)
[2021-09-06 15:52] VITALS: BP 123/65; PULSE 120; RESP 18; TEMP 37
[2021-09-06 18:59] LABS: Coronavirus 19, PCR Detected (NotDetected)
== END 2021-09-06 15:54 | disposition home or self-care (01) ==
PROVIDERS: Emergency Provider Nurse Practitioner Family; PCP Nurse Practitioner Family
DX: U07.1 COVID-19 (principal); R53.81 Other malaise; R51.9 Headache, unspecified; R05.9 Cough, unspecified
CPT/HCPCS: 87581; 87632; 87798; 99212; C9803; G0463; U0003; U0005

== ENCOUNTER → 2021-10-30 15:28 | Outpatient (CLI) | payer OTHER, SELFPAY ==
[2021-10-30 17:22] LABS: Basophils # 0.1 K/mm3 (0-0.2); Basophils % 0.9 % (0.1-2.0); Eosinophils # 0.4 K/mm3 (0.0-0.4); Eosinophils % 4.2 % (0.1-12.0); Hemoglobin 14.8 g/dL (12.2-16.2); Lymphocytes # 2.6 K/mm3 (0.7-4.5); Lymphocytes % 30.6 % (10-50); Mean Corpuscular HGB Conc 31.5 g/dL (31.8-35.4); Mean Corpuscular Hemoglobin 32.4 pg (27.0-31.2); Mean Corpuscular Volume 102.6 fl (81-99); Mean Platelet Volume 8.9 fl (7.4-10.4); Monocytes # 0.5 K/mm3 (0.1-1.0); Monocytes % 5.8 % (1.7-9.3); Neutrophils # 4.9 K/mm3 (1.8-7.8); Neutrophils % 58.5 % (37.0-80.0); Platelet Count 283 K/mm3 (142-424); Red Blood Count 4.58 M/mm3 (4.20-5.40); Red Cell Distribution Width 13.1 % (11.5-17.5); White Blood Count 8.4 K/mm3 (4.8-10.8)
[2021-10-30 17:44] LABS: Alanine Aminotransferase 23 U/L (12-78); Albumin Level 4.2 g/dl (3.5-5.0); Albumin/Globulin Ratio 1.8 (1.1-1.8); Alkaline Phosphatase 61 U/L (38-126); Anion Gap 10.2 mEq/L (5-15); Aspartate Amino Transferase 22 U/L (14-36); Bilirubin,Total 0.2 mg/dl (0.2-1.3); Blood Urea Nitrogen 13 mg/dl (7-17); Calcium 9.2 mg/dl (8.4-10.2); Carbon Dioxide 23 mmol/L (22.0-30.0); Chloride 108 mmol/L (98-107); Estimated Glomerular Filt Rate 100 ml/min (>60); GFR (African American) 121 ML/MIN (>60); Globulin 2.4 g/dL (1.3-3.2); Glucose 86 mg/dl (74-100); Potassium 4.2 mmoL/L (3.5-5.1); Sodium 137 mmol/L (136-145); Total Protein,Serum 6.6 g/dl (6.3-8.2)
[2021-10-30 18:32] LABS: Vitamin B12 417 pg/mL (239-931)
[2021-11-02 16:34] LABS: Endomysial IgA Antibody Negative (Negative); Tissue Transglutaminase IgA Ab <2 U/mL (0-3); Tissue Transglutaminase IgG Ab <2 U/mL (0-5)
[2021-11-02 16:34] LABS: Deamidated Gliadin Abs, IgA 6 units (0-19); Deamidated Gliadin Abs, IgG 7 units (0-19)
== END ==
PROVIDERS: PCP Nurse Practitioner Family; Visit Provider Nurse Practitioner Family
DX: R10.9 Unspecified abdominal pain (principal); G89.29 Other chronic pain
CPT/HCPCS: 36415; 80053; 82607; 83516; 85025; 86255

== ENCOUNTER → 2021-12-01 11:55 | Outpatient (CLI) | payer OTHER, SELFPAY | PROVIDERS: PCP Nurse Practitioner Family; Visit Provider Internal Medicine Gastroenterology | DX: Z01.818 Encounter for other preprocedural examination (principal); Z20.822 Contact with and (suspected) exposure to COVID-19 | CPT/HCPCS: C9803; U0003; U0005 ==

== ENCOUNTER 2022-01-14 09:29 | Day surgery (SDC) | payer OTHER, SELFPAY ==
[2021-12-28 10:35] VITALS: BMI 20.9
[2022-01-14 09:45] LABS: Urine Pregnancy, HCG Qual. Negative (Negative)
[2022-01-14 09:46] VITALS: BP 121/65; PULSE 66; RESP 18; TEMP 36.9; O2SAT 98
[2022-01-14 10:07] VITALS: O2SAT 98
--- NOTE | 2022-01-14 10:27 | HMH.SCOPE ---
Procedure: Date: 01/14/22 Patient Date of :: 1995 Procedure Performed:: EGD Indications:: Chronic abdominal pain Performing Provider:: Sarthak Vargas MD Referring Provider:: Ирина Galvan PA-C Sedation:: Propofol Procedure:: The gastroscope was gently passed through the incisoral orifice into the oral cavity and under direct visualization the esophagus was intubated. The endoscope was passed down the esophagus, through the stomach, and into the duodenum. Color, texture, mucosa, and anatomy of the esophagus, stomach, and duodenum were carefully examined with the scope. Findings:: Oropharynx: normal Esophagus: normal EG Junction: intact at 40 cm Cardia: normal Fundus: normal Body: normal Antrum: normal Duodenal bulb: normal Duodenum (second and third portion): normal Impression: Normal EGD Symptoms suggestive of IBS Recommendations:: Conservative therapy PRN Consider GI Clinic consultation for management of symptoms Complications:: None Estimated blood obtained (mL): 0
[2022-01-14 10:30] VITALS: BP 87/51; PULSE 65; RESP 18; TEMP 36.4; O2SAT 98
--- NOTE | 2022-01-14 10:31 | HMH.SCOPE ---
Procedure: Date: 01/14/22 Patient Date of :: 1995 Procedure Performed:: Diagnostic colonoscopy Indications:: Chronic abdominal pain Performing Provider:: Sarthak Vargas MD Referring Provider:: Ирина Galvan PA-C Sedation:: Propofol Procedure:: After placing the patient in the left lateral decubitus position, the colonoscopy was gently inserted into the rectum and under direct visualization advanced to the cecum which was identified by transillumination in the right lower quadrant, identification of the ileocecal valve, appendiceal orifice, and cecal strap. Color, texture, mucosa, and anatomy of the colon were carefully examined with the scope. Findings:: Anal canal: normal Rectum: normal Sigmoid colon: normal without polyps or inflammatory changes Descending colon: normal without polyps or inflammatory changes Splenic flexure: normal Transverse colon: normal without polyps or inflammatory changes Hepatic flexure: normal Ascending colon: normal without polyps or inflammatory changes Cecum: normal Terminal ileum: Normal Impression: Normal colonoscopy & terminal ileum No evidence of inflammatory bowel disease Recommendations:: Symptomatic therapy as clinically indicated. Consider GI Clinic consultation for symptom management as needed. Complications:: None Estimated blood obtained (mL): 0
--- NOTE | 2022-01-14 10:34 | EXP.ANES.CKL ---
[facility] Medical History Hemorrhoid Pre-op testing Surgical History (Updated 01/14/22 @ 09:44 by Isabel Campbell RN) History of section History of partial hysterectomy Family History Other No significant family history Social History Smoking Status: Current every day smoker tobacco type: cigarettes packs per day: 1 second hand exposure: Yes alcohol intake: never substance use type: denies use current occupational status: unemployed Travel in the last 8 weeks: None household members: family and children housing: house marital status: single education level: high school current occupational exposures/hazards: No caffeine: No special margarita needs: No agree to transfusion: No do you feel safe at home: Yes victim of physical abuse: No victim of emotional abuse: No victim of sexual abuse: No would you like helpful sources: No [facility] Anesthesia Checklist Patient Identification Patient Identification: Verbal (Name & ) Structural Data Admitted From: Home Planned Operative Procedure/s: egd/colonoscopy Consent for Planned Operative Procedure(s) Verified: Yes Additional verifications Anesthesia Reactions: No Hx Blood Transfusions: No Blood Transfusion Reaction: No Airway Assessment C-Spine Mobility Assessed: Yes TMJ Mobility Assessed: Yes Dentition: Good Dentition Neurological Assessment Level of Consciousness: Awake, Alert and Appropriate Anesthesia Plan Anesthesia Risk discussed: Yes Anesthesia Plan: Verified ASA Class: II Anesthesia Type: MAC
[2022-01-14 10:40] VITALS: BP 96/53; PULSE 64; RESP 18; TEMP 36.4; O2SAT 100
[2022-01-14 10:50] VITALS: BP 105/57; PULSE 68; RESP 18; TEMP 36.4; O2SAT 100
[2022-01-14 11:25] VITALS: BP 106/62; PULSE 56; RESP 18; TEMP 36.4; O2SAT 100
== END 2022-01-14 11:25 | disposition home or self-care (01) ==
PROVIDERS: PCP Nurse Practitioner Family; Visit Provider Internal Medicine Gastroenterology
PROC: 0DJ08ZZ Inspection of Upper Intestinal Tract, Via Natural or Artificial Opening Endoscopic (ICD-10-PCS; CPT 43235; principal; 2022-01-14 11:00)
DX: Z12.11 Encounter for screening for malignant neoplasm of colon (principal); R10.9 Unspecified abdominal pain; Z72.0 Tobacco use
CPT/HCPCS: 45378; 43235; 81025

== ENCOUNTER 2022-02-26 17:04 | Emergency (ER) | payer OTHER, SELFPAY ==
[2022-02-26 17:10] VITALS: BP 140/83; PULSE 88; RESP 19; TEMP 37.4; O2SAT 98; BMI 23.7
[2022-02-26 17:16] VITALS: BP 140/83; PULSE 88; RESP 19; TEMP 37.4; O2SAT 98
--- NOTE | 2022-02-26 17:18 | EXP.UTC ---
Discharge Plan Disposition Patient Disposition: Home, Self-Care Condition: Good Prescriptions Prescriptions: New amoxicillin-pot clavulanate 875-125 mg Tablet 1 tab PO Q12H Qty: 20 0RF fluticasone propionate [Flonase Allergy Relief] 50 mcg/actuation spray,suspension 1 spray intranasal DAILY Qty: 16 0RF Rx Instructions: administer into each nostril Referrals Follow up/Referrals: Nely Pichardo APRN [Primary Care Provider] - See instructions Activity Restrictions/Add. Instructions Additional Instructions/Restrictions: *Monitor Temp, Over the counter Motrin or Tylenol as directed/as needed Tylenol every 4 hours and Motrin every 6 hours (as long as your family doctor has told you that you can take it) for fever or pain. and straight to ER if unable to lower temp less than 101.0 after medication given Take medication as prescribed *Sleep elevated *Humidifier/Vaporizer *Flonase 2 sprays in each nostril daily but be aware that it may take 2-3 days before you notice improvement Follow up IMMEDIATELY for new or worsening symptoms or no Noticeable improvement over the next 48-72 hours. 911 for difficulty breathing or swallowing Clinical Impressions Clinical Impression: Otitis media, Sinusitis Instructions Patient Instructions: DI for Sinusitis, Middle Ear Infection Discharge ED Provider: Mary Kate Moralez [facility] General Stated complaint: gautam,ear ache Mode of Arrival: Ambulatory Source of Information: Patient Limitations: No Limitations Time Seen by Provider: 02/26/22 17:18 Description of Symptoms (Recalled from Triage Doc. by RN): PATIENT C/O CONGESTION AND RIGHT EAR PAIN X 3 DAYS HEENT Symptoms (Recalled from RN notes): Yes Resp Symptoms (Recalled from RN notes): No Skin Symptoms (Recalled from RN notes): No MS Symptoms (Recalled from RN notes): No Functional Status (Recalled from RN notes): WNL History of Present Illness Provider Complaint: Patient states that she has been having sinus congestion and pressure for about 2 weeks and they thought it was a viral infection but for the last 3 days she has been having worsening of sinus pressure and pain in her right ear States that today her ear was hurting worse so she came in Related Data Previous Rx's Medication Instructions Recorded amoxicillin 875 mg-potassium 1 tab PO Q12H #20 tabs 02/26/22 clavulanate 125 mg tablet fluticasone propionate 50 1 spray intranasal DAILY #16 grams 02/26/22 mcg/actuation nasal spray,suspension (Flonase Allergy Relief) Allergies Allergy/AdvReac Type Severity Reaction Status Date / Time No Known Allergies Allergy Verified 04/02/20 14:43 Worker's Comp Is this a Worker's Comp case?: No [facility] Disclaimer: The information contained in this section may have been updated after the patient was seen, as this information can be updated by other users. Medical History (Updated 02/26/22 @ 17:23 by Mary Kate Moralez APRN) Anxiety Depression Hemorrhoid Pre-op testing Surgical History History of section History of partial hysterectomy Family History Other No significant family history Social History (Updated 02/26/22 @ 17:15 by Mackenzie Ulrich RN) Smoking Status: Current every day smoker tobacco type: cigarettes packs per day: 1 second hand exposure: Yes alcohol intake: never substance use type: denies use current occupational status: unemployed Travel in the last 8 weeks: None household members: family and children housing: house marital status: single education level: high school current occupational exposures/hazards: No caffeine: No special margarita needs: No agree to transfusion: No do you feel safe at home: Yes victim of physical abuse: No victim of emotional abuse: No victim of sexual abuse: No would you like helpful sources: No
== END 2022-02-26 17:45 | disposition home or self-care (01) ==
PROVIDERS: Emergency Provider Nurse Practitioner; PCP Nurse Practitioner Family
DX: J32.9 Chronic sinusitis, unspecified (principal); H66.90 Otitis media, unspecified, unspecified ear
CPT/HCPCS: 96372; 99212; G0463

== ENCOUNTER 2022-05-06 08:56 | Emergency (ER) | payer OTHER, SELFPAY ==
[2022-05-06 09:00] VITALS: BP 130/83; PULSE 64; RESP 20; TEMP 37.5; O2SAT 99; BMI 22.9
--- NOTE | 2022-05-06 09:06 | XR_ITS ---
FINAL REPORT CLINICAL HISTORY: soa FINDINGS: PA and lateral views of the chest are obtained. There is no prior exam for comparison. The cardiac and mediastinal silhouettes are within normal limits. The lungs are clear. There is no pleural effusion, pneumothorax, or acute osseous abnormality. IMPRESSION: No radiographic evidence of acute cardiac or pulmonary disease. Reviewed, Interpreted and Dictated by Lindsay Rider MD Transcribed by Emilie Callaway Authenticated and . [facility]
--- NOTE | 2022-05-06 09:08 | EXP.UTC ---
Discharge Plan Disposition Patient Disposition: Home, Self-Care Condition: Good Prescriptions Prescriptions: New azithromycin [Zithromax] 250 mg tablet 250 mg PO UD DOSE PK Qty: 6 0RF Rx Instructions: Take two (2) tablets today, then one (1) tablet days #2 thru #5 benzonatate [benzonatate] 100 mg capsule 100 mg PO TIDP PRN (Reason: Cough) Qty: 30 0RF methylprednisolone 4 mg Tablets,Dose Pack 4 mg PO DIRECTED Qty: 21 0RF Referrals Follow up/Referrals: Nely Pichardo APRN [Primary Care Provider] - See instructions Activity Restrictions/Add. Instructions Additional Instructions/Restrictions: Drink plenty of fluids. Take tylenol or ibuprofen for pain or fever. Take the medications as directed. Follow up with your regular doctor. GO TO THE ER FOR ANY WORSENING SYMPTOMS Clinical Impressions Clinical Impression: Bronchitis Stand Alone Forms Stand Alone Forms: Work/School Release Instructions Patient Instructions: DI for Acute Bronchitis Discharge ED Provider: Mynor Ibarra [facility] General Stated complaint: SOA Time Seen by Provider: 05/06/22 09:07 History of Present Illness Provider Complaint: She states that for the past 1 week she has had chest congestion, sinus congestion, ear pain and malaise. Related Data Previous Rx's Medication Instructions Recorded azithromycin 250 mg tablet 250 mg PO UD DOSE PK #6 tabs 05/06/22 (Zithromax) benzonatate 100 mg capsule 100 mg PO TIDP PRN Cough #30 caps 05/06/22 methylprednisolone 4 mg tablets in 4 mg PO DIRECTED #21 tabs 05/06/22 a dose pack Allergies Allergy/AdvReac Type Severity Reaction Status Date / Time No Known Allergies Allergy Verified 05/06/22 09:20 [facility] Disclaimer: The information contained in this section may have been updated after the patient was seen, as this information can be updated by other users. Medical History Anxiety Depression Hemorrhoid Pre-op testing Surgical History History of section History of partial hysterectomy Family History Other No significant family history Social History Smoking Status: Current every day smoker tobacco type: cigarettes packs per day: 1 second hand exposure: Yes alcohol intake: never substance use type: denies use current occupational status: unemployed Travel in the last 8 weeks: None household members: family and children housing: house marital status: single education level: high school current occupational exposures/hazards: No caffeine: No special margarita needs: No agree to transfusion: No do you feel safe at home: Yes victim of physical abuse: No victim of emotional abuse: No victim of sexual abuse: No would you like helpful sources: No ROS Obtained: Yes All systems reviewed & no additional complaints except as documented Constitutional Constitutional: Reports poor appetite Eyes Eyes: Reports system reviewed and no additional complaints, except as documented ENT Ears, Nose, Mouth, and Throat: Reports as per HPI Cardiovascular Cardiovascular: Reports system reviewed and no additional complaints, except as documented and Denies chest pain Respiratory Respiratory: Denies shortness of breath, Reports chest congestion, Reports cough, Denies stridor and Denies wheezing Gastrointestinal Gastrointestingal: Reports system reviewed and no additional complaints, except as documented; Denies abdominal pain, diarrhea or vomiting Musculoskeletal Musculoskeletal: Reports system reviewed and no additional complaints, except as documented and Denies arthralgias Integumentary/Breasts Skin/Breast: Reports system reviewed and no additional complaints, except as documented and Denies rash Neurologic
[2022-05-06 09:57] VITALS: BP 130/83; PULSE 64; RESP 20; TEMP 37.5; O2SAT 99
== END 2022-05-06 09:57 | disposition home or self-care (01) ==
PROVIDERS: Emergency Provider Nurse Practitioner Family; PCP Nurse Practitioner Family
DX: J40 Bronchitis, not specified as acute or chronic (principal)
CPT/HCPCS: 71046; 99212; 99213; G0463

== ENCOUNTER 2022-05-20 16:19 | Emergency (ER) | payer OTHER, SELFPAY ==
[2022-05-20 16:20] VITALS: BP 114/74; PULSE 73; RESP 17; TEMP 36.8; O2SAT 96; BMI 22.9
--- NOTE | 2022-05-20 16:37 | ECG_ITS ---
APPROVED REPORT Exam: Resting ECG HR:64 bpm ECG Measurements Heart Rate 64 AXES TN 145 P 60 QRSd 84 QRS 82 QT 379 T 79 QTc 388 Conclusion SINUS RHYTHM WITH SINUS ARRHYTHMIA MODERATE ST DEPRESSION [0.05+ mV ST DEPRESSION] ABNORMAL ECG UNCONFIRMED REPORT Electronically signed by : Edwin Hackett MD 05/21/2022 17:20:02
--- NOTE | 2022-05-20 16:37 | HMH.EDGENADL ---
Discharge Plan Disposition Patient Disposition: Home, Self-Care Prescriptions Prescriptions: No Action azithromycin [Zithromax] 250 mg tablet 250 mg PO UD DOSE PK Qty: 6 0RF Rx Instructions: Take two (2) tablets today, then one (1) tablet days #2 thru #5 benzonatate [benzonatate] 100 mg capsule 100 mg PO TIDP PRN (Reason: Cough) Qty: 30 0RF methylprednisolone 4 mg Tablets,Dose Pack 4 mg PO DIRECTED Qty: 21 0RF Referrals Follow up/Referrals: Nely Pichardo APRN [Primary Care Provider] - See instructions Activity Restrictions/Add. Instructions Additional Instructions/Restrictions: Your work-up today was unremarkable and the cause of your chest pressure is still unidentified. Please follow your primary care doctor and consider following with a medical billing and coding specialist for pulmonary function tests additionally I recommend that you stop smoking to see if that is the ongoing inciting factor that is causing her symptoms. Clinical Impressions Clinical Impression: Chest pressure Discharge ED Provider: Galina Michael General Adult HPI General Chief complaint: Shortness of Breath/Dyspnea Stated complaint: SOA Time Seen by Provider: 05/20/22 16:37 History of Present Illness HPI narrative: Patient is a 27-year-old female presenting with 1 month history of chest tightness and mild headache. She is primarily here for her chest tightness though. She denies any significant chest pain but states that her chest has been tight and nothing is making it better or worse over the last month. She is been to the doctor several times and has gotten a prescription for meloxicam as well as albuterol inhaler neither which have improved her. She also is started on escitalopram also without improvement. She denies any fevers chills coughs lower extremity swelling hemoptysis history of PE or DVT in herself or her family history of cancer. She does state that she smokes and vapes and smokes marijuana. She is trying to quit recently without success. She also struggles with chronic anxiety and this has been worse lately and she is unsure as to whether or not this is before or after her concerns of her symptoms. Related Data Previous Rx's Medication Instructions Recorded azithromycin 250 mg tablet 250 mg PO UD DOSE PK #6 tabs 05/06/22 (Zithromax) benzonatate 100 mg capsule 100 mg PO TIDP PRN Cough #30 caps 05/06/22 methylprednisolone 4 mg tablets in 4 mg PO DIRECTED #21 tabs 05/06/22 a dose pack Allergies Allergy/AdvReac Type Severity Reaction Status Date / Time No Known Allergies Allergy Verified 05/06/22 09:20 [facility] Disclaimer: The information contained in this section may have been updated after the patient was seen, as this information can be updated by other users. Medical History Anxiety Depression Hemorrhoid Pre-op testing Surgical History History of section History of partial hysterectomy Family History Other No significant family history Social History Smoking Status: Current every day smoker tobacco type: cigarettes packs per day: 1 second hand exposure: Yes alcohol intake: never substance use type: denies use current occupational status: unemployed Travel in the last 8 weeks: None household members: family and children housing: house marital status: single education level: high school current occupational exposures/hazards: No caffeine: No special margarita needs: No agree to transfusion: No do you feel safe at home: Yes victim of physical abuse: No victim of emotional abuse: No victim of sexual abuse: No would you like helpful sources: No ROS Obtained: Yes All systems reviewed & no additional complaints except as documented Physical E
--- NOTE | 2022-05-20 16:46 | XR_ITS ---
PROCEDURE INFORMATION: Exam: XR Chest Exam date and time: 05/20/2022 5:04 PM Age: 27 years old Clinical indication: Shortness of breath; Patient HX: Cp @ sternum w tightness x 1-2 wks; Additional info: Dyspnea TECHNIQUE: Imaging protocol: Radiologic exam of the chest. Views: 1 view. COMPARISON: CR XR CHEST 2V 05/06/2022 9:07 AM FINDINGS: Lungs: Unremarkable. No consolidation. Pleural spaces: Unremarkable. No pleural effusion. No pneumothorax. Heart/Mediastinum: Unremarkable. No cardiomegaly. Bones/joints: Unremarkable. IMPRESSION: Stable chest x-ray with no acute disease.
--- NOTE | 2022-05-20 17:19 | PC.NURSE ---
LABS SENT UP
[2022-05-20 17:47] LABS: Basophils # 0.1 K/mm3 (0-0.2); Basophils % 1.6 % (0.1-2.0); Eosinophils # 0.4 K/mm3 (0.0-0.4); Eosinophils % 4.7 % (0.1-12.0); Hemoglobin 15.3 g/dL (12.2-16.2); Lymphocytes # 2.5 K/mm3 (0.7-4.5); Lymphocytes % 32.4 % (10-50); Mean Corpuscular HGB Conc 32.6 g/dL (31.8-35.4); Mean Corpuscular Hemoglobin 31.9 pg (27.0-31.2); Mean Corpuscular Volume 97.8 fl (81-99); Mean Platelet Volume 9.1 fl (7.4-10.4); Monocytes # 0.4 K/mm3 (0.1-1.0); Monocytes % 4.6 % (1.7-9.3); Neutrophils # 4.3 K/mm3 (1.8-7.8); Neutrophils % 56.7 % (37.0-80.0); Platelet Count 262 K/mm3 (142-424); Red Cell Distribution Width 12.5 % (11.5-17.5); White Blood Count 7.6 K/mm3 (4.8-10.8)
[2022-05-20 18:05] LABS: Alanine Aminotransferase 21 U/L (12-78); Albumin Level 4.5 g/dl (3.5-5.0); Alkaline Phosphatase 62 U/L (38-126); Anion Gap 8.7 mEq/L (5-15); Aspartate Amino Transferase 26 U/L (14-36); Bilirubin,Total 0.4 mg/dl (0.2-1.3); Blood Urea Nitrogen 13 mg/dl (7-17); Calcium 8.4 mg/dl (8.4-10.2); Carbon Dioxide 27 mmol/L (22.0-30.0); Chloride 104 mmol/L (98-107); Creatinine Clearance Estimated 120 mL/min (50-200); Estimated Glomerular Filt Rate 85 ml/min (>60); GFR (African American) 103 ML/MIN (>60); Globulin 2.2 g/dL (1.3-3.2); Glucose 87 mg/dl (74-100); Potassium 3.7 mmoL/L (3.5-5.1); Sodium 136 mmol/L (136-145); Total Protein,Serum 6.7 g/dl (6.3-8.2)
[2022-05-20 18:09] LABS: D-Dimer 0.69 ug/mL (0.0-0.5)
[2022-05-20 18:18] LABS: Troponin I < 0.01 ng/ml (0.00-0.034)
[2022-05-20 19:11] VITALS: BP 121/68; PULSE 70; RESP 18; TEMP 36.8; O2SAT 100
== END 2022-05-20 19:11 | disposition home or self-care (01) ==
PROVIDERS: Emergency Provider Student in an Organized Health Care Education/Training Program; PCP Nurse Practitioner Family
DX: R06.02 Shortness of breath (principal); R07.89 Other chest pain; F41.1 Generalized anxiety disorder
CPT/HCPCS: 71045; 80053; 84484; 85025; 85378; 93005; 99284; 99285

== ENCOUNTER 2022-06-06 10:02 | Emergency (ER) | payer OTHER, SELFPAY ==
[2022-06-06 10:05] VITALS: BP 117/74; PULSE 96; RESP 18; TEMP 37.3; O2SAT 99; BMI 22.9
[2022-06-06 10:19] VITALS: BP 117/74; PULSE 96; RESP 18; TEMP 37.3; O2SAT 99
[2022-06-06 10:19] LABS: UTC Strep Screen (Rapid) Positive (Negative)
--- NOTE | 2022-06-06 10:20 | EXP.UTC ---
Discharge Plan Disposition Patient Disposition: Home, Self-Care Condition: Good Prescriptions Prescriptions: New penicillin V potassium 500 mg tablet 500 mg PO BID 10 Days Qty: 20 0RF Referrals Follow up/Referrals: Nely Pichardo APRN [Primary Care Provider] - See instructions Activity Restrictions/Add. Instructions Additional Instructions/Restrictions: *Monitor Temp, Over the counter Motrin or Tylenol as directed/as needed Tylenol every 4 hours and Motrin every 6 hours (as long as your family doctor has told you that you can take it) for fever or pain. and straight to ER if unable to lower temp less than 101.0 after medication given *Warm salt water gargles may help to soothe the throat *Throat Lozenges? *Warm fluids like tea with honey may help to soothe the throat? *Sleep elevated *Humidifier/Vaporizer *If you did not take Penicillin shot or was unable to, start taking antibiotic immediately and make sure that you take it for the FULL length of time although you should start to feel better in 24-48 hours *change toothbrush and toothpaste 24-48 hours after starting to take antibiotics so you do not reinfect yourself Monitor Temp. Tylenol and/or Ibuprofen as needed. ER if fever is no less than 101 despite alternating Tylenol and Ibuprofen * Encourage fluids, water, Gatorade, powerade, pedialyte if infant/toddler/or child *Cold fluids, popsicles and ice cream may feel good on his throat Follow up IMMEDIATELY for new or worsening symptoms or no Noticeable improvement over the next 48-72 hours. 911 for difficulty breathing or swallowing Clinical Impressions Clinical Impression: Strep throat Instructions Patient Instructions: Strep Throat, DI for Strep Throat Discharge ED Provider: Mary Kate Moralez [facility] HPI General Stated complaint: sore throat Mode of Arrival: Ambulatory Source of Information: Patient Limitations: No Limitations Time Seen by Provider: 06/06/22 10:21 Description of Symptoms (Recalled from Triage Doc. by RN): PATIENT C/O SORE THROAT WITH WHITE SPOTS SINCE THIS MORNING HEENT Symptoms (Recalled from RN notes): Yes Resp Symptoms (Recalled from RN notes): No Skin Symptoms (Recalled from RN notes): No MS Symptoms (Recalled from RN notes): No Functional Status (Recalled from RN notes): WNL History of Present Illness Provider Complaint: Patient states that she woke up this morning with her throat sore and hurting and felt like she had white spots on her tonsils States that her throat was hurting pretty bad when she would swallow so she came in to get checked Related Data Previous Rx's Medication Instructions Recorded penicillin V potassium 500 mg 500 mg PO BID 10 days #20 tabs 06/06/22 tablet Allergies Allergy/AdvReac Type Severity Reaction Status Date / Time No Known Allergies Allergy Verified 05/06/22 09:20 Worker's Comp Is this a Worker's Comp case?: No [facility] Disclaimer: The information contained in this section may have been updated after the patient was seen, as this information can be updated by other users. Medical History Anxiety Depression Hemorrhoid Pre-op testing Surgical History History of section History of partial hysterectomy Family History Other No significant family history Social History Smoking Status: Current every day smoker tobacco type: cigarettes packs per day: 1 second hand exposure: Yes alcohol intake: never substance use type: denies use current occupational status: unemployed Travel in the last 8 weeks: None household members: family and children housing: house marital status: single education level: high school current occupational exposures/hazards: No caffeine: No special veronica
== END 2022-06-06 10:30 | disposition home or self-care (01) ==
PROVIDERS: Emergency Provider Nurse Practitioner; PCP Nurse Practitioner Family
DX: J02.0 Streptococcal pharyngitis (principal); F17.210 Nicotine dependence, cigarettes, uncomplicated
CPT/HCPCS: 87880; 99212; 99214; G0463

== ENCOUNTER 2022-08-29 23:35 | Emergency (ER) | payer OTHER, SELFPAY ==
[2022-08-29 23:36] VITALS: BP 140/70; PULSE 106; RESP 18; TEMP 36.7; O2SAT 99; BMI 20.7
[2022-08-29 23:56] VITALS: BMI 20.7
--- NOTE | 2022-08-30 00:04 | CT_ITS ---
PROCEDURE INFORMATION: Exam: CT Abdomen And Pelvis With Contrast Exam date and time: 08/30/2022 12:17 AM Age: 27 years old Clinical indication: Abdominal pain; Additional info: Rib pain right side TECHNIQUE: Imaging protocol: Computed tomography of the abdomen and pelvis with contrast. Radiation optimization: All CT scans at this facility use at least one of these dose optimization techniques: automated exposure control; mA and/or kV adjustment per patient size (includes targeted exams where dose is matched to clinical indication); or iterative reconstruction. Contrast material: ISOVUE; Contrast volume: 75 ml; Contrast route: IV; REPORTING DATA: Count of CT and Cardiac NM exams in prior 12 months: This patient has received [address] and 0 known cardiac nuclear medicine studies in the 12 months prior to the current study. COMPARISON: CT ABDOMEN PELVIS WO CON 09/02/2021 9:37 PM FINDINGS: Liver: Normal. No mass. Gallbladder and bile ducts: Normal. No calcified stones. No ductal dilation. Pancreas: Normal. No ductal dilation. Spleen: Normal. No splenomegaly. Adrenal glands: Normal. No mass. Kidneys and ureters: Normal. No hydronephrosis. Stomach and bowel: Unremarkable. No obstruction. No mucosal thickening. Appendix: No evidence of appendicitis. Intraperitoneal space: No pelvic masses. Vasculature: Unremarkable. No abdominal aortic aneurysm. Lymph nodes: Unremarkable. No enlarged lymph nodes. Urinary bladder: Unremarkable as visualized. Reproductive: Bilateral tubal ligation. Bones/joints: Unremarkable. No acute fracture. Soft tissues: Unremarkable. IMPRESSION: No acute abdominopelvic abnormality. No acute fracture.
--- NOTE | 2022-08-30 00:04 | XR_ITS ---
PROCEDURE INFORMATION: Exam: XR Chest Exam date and time: 08/30/2022 12:01 AM Age: 27 years old Clinical indication: Pain; Right-sided; Additional info: Rib pain, right side TECHNIQUE: Imaging protocol: Radiologic exam of the chest. Views: 2 views. COMPARISON: CR XR CHEST PORTABLE 05/20/2022 5:04 PM FINDINGS: Lungs: Unremarkable. No consolidation. Pleural spaces: Unremarkable. No pleural effusion. No pneumothorax. Heart/Mediastinum: Unremarkable. No cardiomegaly. Bones/joints: Unremarkable. IMPRESSION: No acute findings.
[2022-08-30 00:11] LABS: Microscopic, Urine URINE MICROSCOPIC (MICROSCOPIC)
[2022-08-30 00:12] LABS: Basophils # 0.1 K/mm3 (0-0.2); Basophils % 0.7 % (0.1-2.0); Eosinophils # 0.6 K/mm3 (0.0-0.4); Eosinophils % 4.7 % (0.1-12.0); Hematocrit 46.4 % (37.0-47.0); Hemoglobin 15.1 g/dL (12.2-16.2); Lymphocytes % 32.4 % (10-50); Mean Corpuscular HGB Conc 32.6 g/dL (31.8-35.4); Mean Corpuscular Volume 98.1 fl (81-99); Mean Platelet Volume 8.4 fl (7.4-10.4); Monocytes # 0.6 K/mm3 (0.1-1.0); Monocytes % 4.9 % (1.7-9.3); Neutrophils % 57.4 % (37.0-80.0); Platelet Count 252 K/mm3 (142-424); Red Blood Count 4.73 M/mm3 (4.20-5.40); Red Cell Distribution Width 12.4 % (11.5-17.5); White Blood Count 12.3 K/mm3 (4.8-10.8)
[2022-08-30 00:13] LABS: Appearance,Urine CLEAR (Clear); Bilirubin,Urine Negative (Negative); Blood, Urine Negative (Negative); Color,Urine YELLOW (Yellow); Glucose,Urine (UA) Negative (Negative); Ketones,Urine Negative (Negative); Leukocyte Esterase,Urine Negative (Negative); Nitrate,Urine Negative (Negative); Protein,Urine Negative (Negative); Specific Gravity, Urine >= 1.030 (1.005-1.030); Urobilinogen,Urine 0.2 EU/dl (0.2)
[2022-08-30 00:17] LABS: Alanine Aminotransferase 23 U/L (12-78); Albumin Level 4.7 g/dl (3.5-5.0); Albumin/Globulin Ratio 1.7 (1.1-1.8); Alkaline Phosphatase 61 U/L (38-126); Amylase 100 U/L (30-110); Anion Gap 14.8 mEq/L (5-15); Aspartate Amino Transferase 28 U/L (14-36); Bilirubin,Total 0.3 mg/dl (0.2-1.3); Blood Urea Nitrogen 15 mg/dl (7-17); Calcium 8.7 mg/dl (8.4-10.2); Carbon Dioxide 22 mmol/L (22.0-30.0); Chloride 105 mmol/L (98-107); Creatinine Clearance Estimated 124 mL/min (50-200); Estimated Glomerular Filt Rate 100 ml/min (>60); GFR (African American) 121 ML/MIN (>60); Globulin 2.7 g/dL (1.3-3.2); Glucose 101 mg/dl (74-100); Lipase 60 U/L (23-300); Potassium 3.8 mmoL/L (3.5-5.1); Sodium 138 mmol/L (136-145); Total Protein,Serum 7.4 g/dl (6.3-8.2)
[2022-08-30 00:27] LABS: WBC,Urine Occasional #/hpf (0-3)
[2022-08-30 00:34] LABS: Erythrocyte Sedimentation Rate 6 mm/hr (0-20)
--- NOTE | 2022-08-30 01:10 | HMH.EDABDPAI ---
Discharge Plan Disposition Patient Disposition: Home, Self-Care Prescriptions Prescriptions: New prednisone [prednisone] 20 mg tablet 20 mg PO BID Qty: 10 0RF No Action penicillin V potassium 500 mg tablet 500 mg PO BID 10 Days Qty: 20 0RF Referrals Follow up/Referrals: Nely Lieberman APRN [Primary Care Provider] - See instructions Clinical Impressions Clinical Impression: Costal margin pain Instructions Patient Instructions: DI for Costochondritis Discharge ED Provider: Freeman (ED)Virgilio Abdominal Pain HPI General Chief Complaint: Abdominal Pain Stated Complaint: Right side pain Time Seen by Provider: 08/30/22 00:10 Mode of Arrival: Ambulatory Source of Information: Patient and Medical Record Limitations: No Limitations Description of Symptoms (Recalled from ER Triage Doc. by RN): pt reports that she woke up at 630am with pain under the right ribcage and it has had constant pressure in that area. the pt states 5/10 pain. pt states the pain is ok when laying still worse with any movement History of Present Illness HPI narrative: pt with rt costal pain since this am worse with deep inspiration and cough and movement but no sob at rest - no fever/rash or trauma - MD complaint: other (rt costal pain) Onset (ago): hour(s) Consistency: intermittent Location: RUQ Severity: moderate Associated symptoms: denies other symptoms Related Data Previous Rx's Medication Instructions Recorded penicillin V potassium 500 mg 500 mg PO BID 10 days #20 tabs 06/06/22 tablet prednisone 20 mg tablet 20 mg PO BID #10 tabs 08/30/22 Allergies Allergy/AdvReac Type Severity Reaction Status Date / Time No Known Allergies Allergy Verified 05/06/22 09:20 [facility] Disclaimer: The information contained in this section may have been updated after the patient was seen, as this information can be updated by other users. Medical History Anxiety Depression Hemorrhoid Pre-op testing Surgical History History of section History of partial hysterectomy Family History Other No significant family history Social History Smoking Status: Current some day smoker tobacco type: cigarettes packs per day: 1 second hand exposure: Yes alcohol intake: never substance use type: denies use current occupational status: unemployed Travel in the last 8 weeks: None household members: family and children housing: house marital status: single education level: high school current occupational exposures/hazards: No caffeine: No special margarita needs: No agree to transfusion: No do you feel safe at home: Yes victim of physical abuse: No victim of emotional abuse: No victim of sexual abuse: No would you like helpful sources: No ROS Obtained: Yes All systems reviewed & no additional complaints except as documented Physical Exam General General appearance: alert Head Head exam: normocephalic Eye Eye exam: Present PERRL and EOMI ENT ENT exam: Present mucous membranes moist Neck Neck exam: Present trachea midline Chest Chest inspection: Present tenderness (rt ant costal ribs ) and other (positive hooking maneuvre) Respiratory Respiratory exam: Present normal lung sounds bilaterally; Absent respiratory distress Cardiovascular Cardiovascular exam: Present regular rate; Absent systolic murmur or rubs Abdominal Exam Abdominal exam: Present soft Extremities Exam Extremities exam: Present full ROM Neurological Exam Neurological exam: Present alert and CN II-XII intact; Absent motor sensory deficit Psychiatric Psychiatric exam: Present normal affect Skin Skin exam: Absent rash Medical Decision Making Medical Records Medical records reviewed: Yes I reviewed the patient'
--- NOTE | 2022-08-30 01:25 | PC.NURSE ---
Dr. Millard at bedside
--- NOTE | 2022-08-30 01:42 | PC.NURSE ---
Dr. Aguila wall, on-call General Surgeon
--- NOTE | 2022-08-30 01:42 | PC.NURSE ---
Dr. Millard s/w Dr. Sheehan
[2022-08-30 01:49] VITALS: BP 140/70; PULSE 91; RESP 18; TEMP 36.7; O2SAT 99
== END 2022-08-30 01:58 | disposition home or self-care (01) ==
PROVIDERS: Emergency Provider Emergency Medicine; PCP Nurse Practitioner Family
DX: R07.81 Pleurodynia (principal); M94.0 Chondrocostal junction syndrome [Tietze]; R10.11 Right upper quadrant pain; F41.9 Anxiety disorder, unspecified; F32.A Depression, unspecified; F17.210 Nicotine dependence, cigarettes, uncomplicated
CPT/HCPCS: 71046; 74177; 80053; 81001; 82150; 83690; 85025; 85651; 96374; 96375; 99284; 99285; Q9967

== ENCOUNTER 2022-10-04 15:42 | Emergency (ER) | payer OTHER, SELFPAY ==
--- NOTE | 2022-10-04 15:44 | XR_ITS ---
FINAL REPORT CLINICAL HISTORY: Neck pain COMPARISON: None FINDINGS: 3 views of the cervical spine were obtained. There is no fracture present. There is no malalignment. Mild degenerative change with osteophytes. IMPRESSION: No acute process. Reviewed, Interpreted and Dictated by Isaac Zarate III, MD Transcribed by vAani Suazo Authenticated and [facility]
[2022-10-04 16:00] LABS: UTC Pregnancy Test, Urine Negative (Negative)
[2022-10-04 16:10] VITALS: BP 128/58; PULSE 86; RESP 16; TEMP 36.8; O2SAT 98
--- NOTE | 2022-10-04 16:37 | EXP.UTC ---
Discharge Plan Disposition Patient Disposition: Home, Self-Care Condition: Good Prescriptions Prescriptions: New methocarbamol 500 mg tablet 500 mg PO TID PRN (Reason: muscle spasm) Qty: 15 0RF Referrals Follow up/Referrals: Nely Lieberman APRN [Primary Care Provider] - See instructions Activity Restrictions/Add. Instructions Additional Instructions/Restrictions: *Ibuprofen oc 6 hours with meal as needed for pain/inflammation *Not additional anti-inflammatory like motrin, aleve, advil with the above amount of ibuprofen. You can still take Tylenol every 4 hours as needed if you need something else for pain *Ice 20 minutes every 2 hours for the first 48 hours after the initial injury followed by moist heat every 20 minutes 3-4 times a day to affected area *Muscle relaxer every 8 hours as needed for muscle spasms but remember, it WILL cause drowsiness You cannot take it and drive, operate machinery or care for small children. *Keep this area active, no movement leads to more stiffness, However take it easy and avoid heavy lifting pushing or pulling*Follow up with you family doctor if no improvement for further treatment? Clinical Impressions Clinical Impression: Muscle spasm Instructions Patient Instructions: Methocarbamol, Ibuprofen Discharge ED Provider: Mary Kate Moralez [facility] [place] HPI General Stated complaint: AO [id number]@1500@home injured neck Mode of Arrival: Ambulatory Source of Information: Patient Limitations: No Limitations Time Seen by Provider: 10/04/22 16:37 Description of Symptoms (Recalled from Triage Doc. 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 A PIECE OF FURNITURE WHICH THREW HER HEAD BACK, C/O NECK PAIN HEENT Symptoms (Recalled from RN notes): No Resp Symptoms (Recalled from RN notes): No Skin Symptoms (Recalled from RN notes): No MS Symptoms (Recalled from RN notes): Yes Functional Status (Recalled from RN notes): WNL History of Present Illness Provider Complaint: Patient states that she was at home earlier and tripped over some bins in the floor and fell States that she did hit her head and it went back States that she is having some spasm/tight feeling to the side of her right shoulder blade area States that she has been moving, bending, turning her head without difficulty but wanted to get checked Related Data Previous Rx's Medication Instructions Recorded methocarbamol 500 mg tablet 500 mg PO TID PRN muscle spasm #15 10/04/22 tabs Allergies Allergy/AdvReac Type Severity Reaction Status Date / Time No Known Allergies Allergy Verified 05/06/22 09:20 Worker's Comp Is this a Worker's Comp case?: [facility] Dis[facility]: The information contained in this section may have been updated after the patient was seen, as this information can be updated by other users. Medical History Anxiety Depression Hemorrhoid Pre-op testing Surgical History History of section History of partial hysterectomy Family History Other No significant family history Social History Smoking Status: Current some day smoker tobacco type: cigarettes packs per day: 1 second hand exposure: Yes alcohol intake: never substance use type: denies use current occupational status: unemployed Travel in the last 8 weeks: None household members: family and children housing: house marital status: single education level: high school current occupational exposures/hazards: No caffeine: No special margarita needs: No agree to transfusion: No do you feel safe at home: Yes victim of physical abuse: No victim of emotional abuse: No victim of sexual abuse: No would you like helpful sources: No ROS Obtained: Yes All systems rev
[2022-10-04 17:38] VITALS: BP 128/58; PULSE 86; RESP 16; TEMP 36.8; O2SAT 98
== END 2022-10-04 17:40 | disposition home or self-care (01) ==
PROVIDERS: Emergency Provider Nurse Practitioner; PCP Nurse Practitioner Family
DX: M62.838 Other muscle spasm (principal); M25.511 Pain in right shoulder; M54.2 Cervicalgia; F17.210 Nicotine dependence, cigarettes, uncomplicated; F41.9 Anxiety disorder, unspecified; F32.A Depression, unspecified; W01.0XXA Fall on same level from slipping, tripping and stumbling without subsequent striking against object, initial encounter
CPT/HCPCS: 72040; 81025; 99212; 99214; G0463

== ENCOUNTER 2022-11-10 08:00 | Emergency (ER) | payer OTHER, SELFPAY ==
[2022-11-10 08:10] VITALS: BP 108/74; PULSE 76; RESP 18; TEMP 36.8; O2SAT 99; BMI 19.6
--- NOTE | 2022-11-10 08:19 | EXP.UTC ---
Discharge Plan Disposition Patient Disposition: Home, Self-Care Condition: Good Prescriptions Prescriptions: New methylprednisolone [Medrol (Jesse)] 4 mg tablets,dose pack See Rx Instructions .Route .COMPLEX 6 Days Qty: 21 0RF Rx Instructions: taper pack; amoxicillin-pot clavulanate 875-125 mg Tablet 1 tab PO Q12H 7 Days Qty: 14 0RF No Action methocarbamol 500 mg tablet 500 mg PO TID PRN (Reason: muscle spasm) Qty: 15 0RF Referrals Follow up/Referrals: Provider,Referral, MD [Primary Care Provider] - See instructions Activity Restrictions/Add. Instructions Additional Instructions/Restrictions: *Monitor Temp, Over the counter Motrin or Tylenol as directed/as needed Tylenol every 4 hours and Motrin every 6 hours (as long as your family doctor has told you that you can take it) for fever or pain. and straight to ER if unable to lower temp less than 101.0 after medication given *Warm salt water gargles may help to soothe the throat *Throat Lozenges? *Warm fluids like tea with honey may help to soothe the throat? *Sleep elevated *Humidifier/Vaporizer Follow up IMMEDIATELY for new or worsening symptoms or no Noticeable improvement over the next 48-72 hours. 911 for difficulty breathing or swallowing Clinical Impressions Clinical Impression: Sinusitis Instructions Patient Instructions: DI for Sinusitis Discharge ED Provider: Mary Kate Moralez [facility] General Stated complaint: possible sinus infection Time Seen by Provider: 11/10/22 08:19 History of Present Illness Provider Complaint: Patient states that she thinks she has a sinus infection States that she has been having sinus pain and pressure for about a week but worse in the last 3 days States that drainage went from clear to thick yellowish green with pressure behind her eyes like she gets with sinus infection Related Data Previous Rx's Medication Instructions Recorded methocarbamol 500 mg tablet 500 mg PO TID PRN muscle spasm #15 10/04/22 tabs amoxicillin 875 mg-potassium 1 tab PO Q12H 7 days #14 tabs 11/10/22 clavulanate 125 mg tablet methylprednisolone 4 mg tablets in See Rx Instructions .Route 11/10/22 a dose pack (Medrol (Jesse)) .COMPLEX 6 days #21 tabs Allergies Allergy/AdvReac Type Severity Reaction Status Date / Time No Known Allergies [facility]ergy Verified 05/06/22 09:20 [facility] Disclaimer: The information contained in this section may have been updated after the patient was seen, as this information can be updated by other users. Medical History Anxiety Depression Hemorrhoid Pre-op testing Surgical History History of section History of partial hysterectomy Family History Other No significant family history Social History Smoking Status: Current some day smoker tobacco type: cigarettes packs per day: 1 second hand exposure: Yes alcohol intake: never substance use type: denies use current occupational status: unemployed Travel in the last 8 weeks: None household members: family and children housing: house marital status: single education level: high school current occupational exposures/hazards: No caffeine: No special margarita needs: No agree to transfusion: No do you feel safe at home: Yes victim of physical abuse: No victim of emotional abuse: No victim of sexual abuse: No would you like helpful sources: No ROS Obtained: Yes All systems reviewed & no additional complaints except as documented and Yes Systems reviewed as appropriate & no additional complaints except as documented Constitutional Constitutional: Reports system reviewed and no additional complaints, except as documented and Reports as per HPI E
[2022-11-10 08:33] VITALS: BP 108/74; PULSE 76; RESP 18; TEMP 36.8; O2SAT 99
== END 2022-11-10 08:35 | disposition home or self-care (01) ==
PROVIDERS: Emergency Provider Nurse Practitioner
DX: J01.90 Acute sinusitis, unspecified (principal); F41.9 Anxiety disorder, unspecified; F32.A Depression, unspecified; F17.210 Nicotine dependence, cigarettes, uncomplicated
CPT/HCPCS: 99212; 99214; G0463

== ENCOUNTER 2023-01-20 08:00 | Emergency (ER) | payer OTHER, SELFPAY ==
[2023-01-20 08:10] VITALS: BP 105/62; PULSE 107; RESP 20; TEMP 37.4; O2SAT 98; BMI 21.8
--- NOTE | 2023-01-20 08:27 | EXP.UTC ---
Discharge Plan Disposition Patient Disposition: Home, Self-Care Condition: Good Referrals Follow up/Referrals: Provider,Referral, MD [Primary Care Provider] - See instructions Activity Restrictions/Add. Instructions Additional Instructions/Restrictions: *Monitor Temp, Over the counter Motrin or Tylenol as directed/as needed Tylenol every 4 hours and Motrin every 6 hours (as long as your family doctor has told you that you can take it) for fever or pain. and straight to ER if unable to lower temp less than 101.0 after medication given *Warm salt water gargles may help to soothe the throat *Throat Lozenges? *Warm fluids like tea with honey may help to soothe the throat? *Sleep elevated *Humidifier/Vaporizer *Flonase 2 sprays in each nostril daily but be aware that it may take 2-3 days before you notice improvement *Bromfed may cause drowsiness. Know how it effects you (your child) before driving, caring for small child, or sending your child to school. Not other antihistamines/allergy medications while taking bromfed Your throat swab was sent for culture. Those results are typically sent to your primary care. Be sure to follow up in 2-3 days with your family doctor/primary care physician if no improvement so they can review those result and treat if necessary. If you don?t have a primary care doctor, I recommend you get one but in the mean time, you will have to return to a walk in clinic Follow up IMMEDIATELY for new or worsening symptoms or no Noticeable improvement over the next 48-72 hours. 911 for difficulty breathing or swallowing You were tested for today for Rapid Flu and COVID your test result should be back in the next hour You may check your results on the [facility] [employer] [facility] Portal if it is positive you will need to Quarantine for 5 days per the CDC Recommendations Clinical Impressions Clinical Impression: COVID-19 Stand Alone Forms Stand Alone Forms: Work/School Release Instructions Patient Instructions: Sore Throat, DI for Fever (Symptom) -- Adult Discharge ED Provider: Mary Kate Moralez [facility] [place] HPI General Stated complaint: sore throat, body aches, fever Mode of Arrival: Ambulatory Source of Information: Patient Limitations: No Limitations Time Seen by Provider: 01/20/23 08:27 Description of Symptoms (Recalled from Triage Doc. by RN): PATIENT C/O SORE THROAT, FEVER, AND BODY ACHES THAT STARTED YESTERDAY HEENT Symptoms (Recalled from RN notes): Yes Resp Symptoms (Recalled from RN notes): No Skin Symptoms (Recalled from RN notes): No MS Symptoms (Recalled from RN notes): No Functional Status (Recalled from RN notes): WNL History of Present Illness Provider Complaint: Patient states that she has been having fever, chills, body aches, and sore throat that started yesterday and continued to get worse States that this morning she wasnt feeling any better so she came in to get checked States that daughter is having similar symptoms Related Data Allergies Allergy/AdvReac Type Severity Reaction Status Date / Time No Known Allergies Allergy Verified 05/06/22 09:20 Worker's Comp Is this a Worker's Comp case?: No PFS PFS Disclaimer: The information contained in this section may have been updated after the patient was seen, as this information can be updated by other users. Medical History Anxiety Depression Hemorrhoid Pre-op testing Surgical History History of section History of partial hysterectomy Family History Other No significant family history Social History Smoking Status: Current some day smoker tobacco type: cigarettes packs per day: 1 second hand exposure: Yes alcohol intake: never substance use type: denies use current occupati
[2023-01-20 08:36] LABS: UTC Strep Screen (Rapid) Negative (Negative)
[2023-01-20 08:48] VITALS: BP 105/62; PULSE 107; RESP 20; TEMP 37.4; O2SAT 98
[2023-01-20 08:48] LABS: Influenza A, PCR Not Detected (NotDetected); Influenza B, PCR Not Detected (NotDetected)
[2023-01-20 09:10] LABS: Coronavirus 19, PCR Detected (NotDetected)
== END 2023-01-20 08:54 | disposition home or self-care (01) ==
PROVIDERS: Emergency Provider Nurse Practitioner
DX: U07.1 COVID-19 (principal); R07.0 Pain in throat; R50.9 Fever, unspecified; F17.210 Nicotine dependence, cigarettes, uncomplicated
CPT/HCPCS: 87636; 87880; 99212; 99213; G0463

== ENCOUNTER 2023-03-05 11:36 | Emergency (ER) | payer OTHER, SELFPAY ==
[2023-03-05 11:55] VITALS: BP 119/79; PULSE 79; RESP 20; TEMP 36.6; O2SAT 100; BMI 19.3
--- NOTE | 2023-03-05 12:00 | ED_ITS ---
Discharge Plan Disposition Patient Disposition: Home, Self-Care Condition: Good Prescriptions Prescriptions: New fluconazole [Diflucan] 100 mg tablet 100 mg PO DAILY 3 Days Qty: 3 0RF Referrals Follow up/Referrals: Nely Lieberman APRN [Primary Care Provider] - See instructions Activity Restrictions/Add. Instructions Additional Instructions/Restrictions: Drink plenty of fluids. Take the medications as directed. Eat yogurt twice per day for the next few days. Follow up with your regular doctor. GO TO THE ER FOR ANY WORSENING SYMPTOMS Clinical Impressions Clinical Impression: Candidiasis of vagina Instructions Patient Instructions: Vaginal Yeast Infection, Fluconazole Discharge ED Provider: Mynor Ibarra [facility] General Stated complaint: STD test Time Seen by Provider: 03/05/23 12:00 History of Present Illness Provider Complaint: She states that for the past 3 days she has had worsening vaginal irritation with whitish discharge. She denies any known std exposure. Related Data Previous Rx's Medication Instructions Recorded fluconazole 100 mg tablet 100 mg PO DAILY 3 days #3 tabs 03/05/23 (Diflucan) Allergies Allergy/AdvReac Type Severity Reaction Status Date / Time No Known Allergies Allergy Verified 05/06/22 09:20 [facility] Disclaimer: The information contained in this section may have been updated after the patient was seen, as this information can be updated by other users. Medical History Anxiety Depression Hemorrhoid Pre-op testing Surgical History History of section History of partial hysterectomy Family History Other No significant family history Social History Smoking Status: Current some day smoker tobacco type: cigarettes packs per day: 1 second hand exposure: Yes alcohol intake: never substance use type: denies use current occupational status: unemployed Travel in the last 8 weeks: None household members: family and children housing: house marital status: single education level: high school current occupational exposures/hazards: No caffeine: No special margarita needs: No agree to transfusion: No do you feel safe at home: Yes victim of physical abuse: No victim of emotional abuse: No victim of sexual abuse: No would you like helpful sources: No ROS Obtained: Yes All systems reviewed & no additional complaints except as docu mented Constitutional Constitutional: Denies chills and Denies fever(s) Eyes Eyes: Denies eye discharge ENT Ears, Nose, Mouth, and Throat: Denies dizziness, Denies otalgia and Denies sore throat Cardiovascular Cardiovascular: Denies chest pain Respiratory Respiratory: Denies shortness of breath, Denies chest congestion, Denies cough, Denies stridor and Denies wheezing Gastrointestinal Gastrointestingal: Denies nausea or vomiting Genitourinary Female Genitourinary: Reports as per HPI, Denies urinary frequency, Denies urinary incontinence, Denies urinary hesitancy, Denies urinary urgency and Reports vaginal discharge Musculoskeletal Musculoskeletal: Reports system reviewed and no additional complaints, except as documented and Denies arthralgias Integumentary/Breasts Skin/Breast: Denies rash Neurologic Neurologic: Denies dizziness and Denies paresthesias Allergic/Immunologic Allergic/Immunologic: Denies wheezing Physical Exam General General appearance: alert and in no apparent distress Head Head exam: atraumatic, normocephalic and normal inspection Eye Eye exam: Present normal appearance, PERRL and EOMI ENT ENT exam: Present normal exam, normal oropharynx, mucous membranes moist, TM's normal bilaterally and normal external ear exam Neck Neck exam: Present normal inspection, full ROM and trachea midline; Absent meningismus or lymphadenopathy Chest Chest inspection: Present normal inspection and symmetric chest wall rise; Absent tenderness Respiratory Respiratory exam: Present normal lung sounds bilaterally; Absent respiratory distress Cardiovascular Cardiovascular exam: Present regular rate and normal rhythm; Absent JVD Abdominal Exam Abdominal exam: Present soft and normal bowel sounds; Absent distention, tenderness or guarding Extremities Exam Extremities exam: Present normal inspection, full ROM and normal capillary refill; Absent calf tenderness Back Exam Back exam: Present normal inspection; Absent tenderness Neurological Exam Neurological exam: Present alert and oriented X3 Psychiatric Psychiatric exam: Present normal affect and normal mood Skin Skin exam: Present warm, dry, intact and normal color Lymphatic Lymphatic Findings: no adenopathy Medical Decision Making Medical Records Medical records reviewed: No I reviewed the patient's medical records. [place] Inquiry Pt receiving controlled substance: No Lab Data Lab results reviewed: Yes I reviewed the patient's lab results.
[2023-03-05 12:31] VITALS: BP 119/79; PULSE 79; RESP 20; TEMP 36.6; O2SAT 100
[2023-03-05 14:13] LABS: Apearance,Urine Turbid (Clear); Bilirubin,Urine Negative (Negative); Blood, Urine Trace (Negative); Color,Urine Yellow (Yellow); Glucose,Urine (UA) Negative (Negative); Ketones,Urine Negative (Negative); PH,Urine 5.5 (5.0-8.5); Protein,Urine Negative (Negative); Specific Gravity, Urine >= 1.030 (1.005-1.030); UTC Leukocyte Esterase,Urine 1+ (Negative); UTC Nitrate,Urine Negative (Negative); Urobilinogen,Urine 0.2 EU/dl (0.2)
[2023-03-10 00:09] LABS: Neisseria gonorrhoeae, NAA Negative (Negative)
== END 2023-03-05 12:33 | disposition home or self-care (01) ==
PROVIDERS: Emergency Provider Nurse Practitioner Family; PCP Nurse Practitioner Family
DX: B37.31 Acute candidiasis of vulva and vagina (principal); B95.1 Streptococcus, group B, as the cause of diseases classified elsewhere; F17.210 Nicotine dependence, cigarettes, uncomplicated
CPT/HCPCS: 81003; 87086; 87491; 87591; 99212; 99214; G0463

== ENCOUNTER 2023-03-08 13:12 | Emergency (ER) | payer OTHER, SELFPAY ==
[2023-03-08 14:06] VITALS: BMI 19.2
[2023-03-08 14:13] LABS: Microscopic, Urine URINE MICROSCOPIC (MICROSCOPIC)
[2023-03-08 14:15] VITALS: BP 117/80; PULSE 86; RESP 19; TEMP 37; O2SAT 100; BMI 19.3
[2023-03-08 14:16] LABS: Apearance,Urine Clear (Clear); Bilirubin,Urine Negative (Negative); Blood, Urine Negative (Negative); Color,Urine Yellow (Yellow); Glucose,Urine (UA) Negative (Negative); Ketones,Urine Negative (Negative); Protein,Urine Negative (Negative); Specific Gravity, Urine 1.015 (1.005-1.030); UTC Leukocyte Esterase,Urine Trace (Negative); UTC Nitrate,Urine Negative (Negative); Urobilinogen,Urine 0.2 EU/dl (0.2)
[2023-03-08 14:17] LABS: Appearance,Urine CLEAR (Clear); Bilirubin,Urine Negative (Negative); Blood, Urine Negative (Negative); Color,Urine YELLOW (Yellow); Glucose,Urine (UA) Negative (Negative); Ketones,Urine Negative (Negative); Leukocyte Esterase,Urine TRACE (Negative); Nitrate,Urine Negative (Negative); Protein,Urine Negative (Negative); Urobilinogen,Urine 0.2 EU/dl (0.2)
[2023-03-08 14:37] LABS: WBC,Urine Occasional #/hpf (0-3)
[2023-03-08 14:38] LABS: Amorphous Sediment,Urine Trace /lpf
--- NOTE | 2023-03-08 14:41 | ED_ITS ---
Discharge Plan Disposition Patient Disposition: Home, Self-Care Condition: Good Prescriptions Prescriptions: New metronidazole 500 mg tablet 500 mg PO Q12H 7 Days Qty: 14 0RF Referrals Follow up/Referrals: Edwin Hackett MD [Primary Care Provider] - See instructions Activity Restrictions/Add. Instructions Additional Instructions/Restrictions: Take medication as prescribed Follow up with OBGYN call and make appointment Follow up with your Family Doctor if needed Straight to ER if any life threatening symptoms Clinical Impressions Clinical Impression: Bacterial vaginosis Instructions Patient Instructions: Bacterial Vaginosis, DI for Bacterial Vaginosis, Metronidazole Discharge ED [place] Mary Kate Moralez [facility] [place] General Stated complaint: itching, discharge, past yeast infection Mode of Arrival: Ambulatory Source of Information: Patient Limitations: No Limitations Time Seen by Provider: 03/08/23 14:42 Description of Symptoms (Recalled from Triage Doc. by RN): PATIENT C/O ITCHING AND DISCHARGE TO VAGINAL AREA HEENT Symptoms (Recalled from RN notes): No Resp Symptoms (Recalled from RN notes): No Skin Symptoms (Recalled from RN notes): No MS Symptoms (Recalled from RN notes): No Functional Status (Recalled from RN notes): WNL History of Present Illness Provider Complaint: Patient states that she was seen and they thought she may have had a yeast infection States that she has taken all the medication but it hasnt helped and she noticed her discharge had a strong fishy smell and she was having itchy/burning like sensation in her vaginal area so today when the smell was stronger she came in Related Data Previous Rx's Medication Instructions Recorded metronidazole 500 mg tablet 500 mg PO Q12H 7 days #14 tabs 03/08/23 Allergies Allergy/AdvReac Type Severity Reaction Status Date / Time No Known Allergies Allergy Verified 05/06/22 09:20 Worker's Comp Is this a Worker's Comp case?: No [facility] Disclaimer: The information contained in this section may have been updated after the patient was seen, as this information can be updated by other users. Medical History Anxiety Depression Hemorrhoid Pre-op testing Surgical History History of section History of partial hysterectomy Family History Other No significant family history Social History Smoking Status: Current some day smoker tobacco type: cigarettes packs per day: 1 second hand exposure: Yes alcohol intake: never substance use type: denies use current occupational status: unemployed Travel in the last 8 weeks: None household members: family and children housing: house marital status: single education level: high school current occupational exposures/hazards: No caffeine: No special margarita needs: No agree to transfusion: No do you feel safe at home: Yes victim of physical abuse: No victim of emotional abuse: No victim of sexual abuse: No would you like helpful sources: No ROS Obtained: Yes All systems reviewed & no additional complaints except as documented and Yes Systems reviewed as appropriate & no additional complaints except as documented Constitutional Constitutional: Reports system reviewed and no additional complaints, except as documented and Reports as per HPI ENT Ears, Nose, Mouth, and Throat: Reports system reviewed and no additional complaints, except as documented and Reports as per HPI Cardiovascular Cardiovascular: Reports system reviewed and no additional complaints, except as documented and Reports as per HPI Respiratory Respiratory: Reports system reviewed and no additional complaints, except as documented and Reports as per HPI Gastrointestinal Gastrointestingal: Reports system reviewed and no additional complaints, except as documented and as per HPI Genitourinary Female Genitourinary: Reports system reviewed and no additional complaints, except as documented, Reports as per HPI, Reports vaginal odor, Reports vaginal pruritus and Reports other (strong fishy smelling discharge that white and thin) Physical Exam General General appearance: alert and in no apparent distress ENT ENT exam: Present mucous membranes moist Respiratory Respiratory exam: Present normal lung sounds bilaterally; Absent respiratory distress or wheezes Cardiovascular Cardiovascular exam: Present regular rate, normal rhythm and normal heart sounds Abdominal Exam Abdominal exam: Present soft and normal bowel sounds; Absent distention or tenderness External exam: Present other (deferred, reports thin white discharge with strong fishy odor) Neurological Exam Neurological exam: Present alert, oriented X3 and normal gait Medical Decision Making Napoleon Inquiry Pt receiving controlled substance: No Napoleon was queried for this patient: No Vital Signs: 03/08/23 14:15 Temperature 98.6 F Temperature Source Oral Pulse Rate [Left Brachial] 86 Respiratory Rate 19 Blood Pressure [Left Arm] 117/80 Blood Pressure Mean [Left Arm] 92 Blood Pressure Source [Left Arm] Automatic Cuff Blood Pressure Position [Left Arm] Sitting 02 Sat by Pulse Oximetry 100 Oxygen Delivery Method Room Air Lab Data Lab Results 03/08/23 13:51: Urine RBC None, Urine WBC Occasional, Ur Squamous Epith Cells 10-20, Amorphous Sediment Trace, Urine Bacteria None 03/08/23 14:06: Urine Color Yellow, Urine Appearance Clear, Urine pH 7.0, Ur Specific [place] 1.015, Urine Protein Negative, Urine Glucose (UA) Negative, Urine Ketones Negative, Urine Blood Negative, Urine Nitrate Negative, Urine Bilirubin Negative, Urine Urobilinogen 0.2, Ur Leukocyte Esterase Trace Orders (Tests/Meds): ORDERS Category Date Time Status UA [Urinalysis and Microscopic] Stat Lab 03/08/23 13:51 Results
[2023-03-08 14:50] VITALS: BP 117/80; PULSE 86; RESP 19; TEMP 37; O2SAT 100
== END 2023-03-08 14:52 | disposition home or self-care (01) ==
PROVIDERS: Emergency Provider Nurse Practitioner; PCP Internal Medicine Adolescent Medicine
DX: N76.0 Acute vaginitis (principal); F17.210 Nicotine dependence, cigarettes, uncomplicated
CPT/HCPCS: 81001; 81003; 99212; 99214; G0463

== ENCOUNTER 2023-04-01 15:47 | Emergency (ER) | payer OTHER, SELFPAY ==
[2023-04-01 15:55] VITALS: BP 124/70; PULSE 81; RESP 21; TEMP 37.2; O2SAT 100; BMI 20.2
[2023-04-01 16:15] LABS: UTC Strep Screen (Rapid) Positive (Negative)
[2023-04-01 16:15] LABS: Apearance,Urine Clear (Clear); Bilirubin,Urine Negative (Negative); Blood, Urine Trace (Negative); Color,Urine Yellow (Yellow); Glucose,Urine (UA) Negative (Negative); Ketones,Urine Negative (Negative); PH,Urine 5.5 (5.0-8.5); Protein,Urine Negative (Negative); UTC Leukocyte Esterase,Urine Negative (Negative); UTC Nitrate,Urine Negative (Negative); Urobilinogen,Urine 0.2 EU/dl (0.2)
--- NOTE | 2023-04-01 16:15 | ED_ITS ---
Discharge Plan Disposition Patient Disposition: Home, Self-Care Condition: Good Prescriptions Prescriptions: New prednisone 10 mg tablet 10 mg PO BID 3 Days Qty: 6 0RF amoxicillin [amoxicillin] 875 mg tablet 875 mg PO Q12H Qty: 20 0RF Referrals Follow up/Referrals: Nely Lieberman APRN [Primary Care Provider] - See instructions Activity Restrictions/Add. Instructions Additional Instructions/Restrictions: Drink plenty of fluids. Take tylenol or ibuprofen for pain or fever. Take the medications as directed. Follow up with your regular doctor. GO TO THE ER FOR ANY WORSENING SYMPTOMS Throw your tooth brush away and get a new one. Clinical Impressions Clinical Impression: Strep throat Stand Alone Forms Stand Alone Forms: Work/School Release Instructions Patient Instructions: Strep Throat, DI for Strep Throat Discharge ED Provider: Mynor Ibarra [facility] [place] General Stated complaint: chills, upset stomach, back pain, sore throat Mode of Arrival: Ambulatory Source of Information: Patient Limitations: No Limitations Time Seen by Provider: 04/01/23 16:15 Description of Symptoms (Recalled from Triage Doc. by RN): Pt's symptoms are sore throat, back ache, stomach ache, and chills. HEENT Symptoms (Recalled from RN notes): Yes Resp Symptoms (Recalled from RN notes): No Skin Symptoms (Recalled from RN notes): No MS Symptoms (Recalled from RN notes): No Functional Status (Recalled from RN notes): n/a History of Present Illness Provider Complaint: She states that she has had fever, chills, body aches and sore throat for the past 1 day. Related Data Previous Rx's Medication Instructions Recorded amoxicillin 875 mg tablet 875 mg PO Q12H #20 tabs 04/01/23 prednisone 10 mg tablet 10 mg PO BID 3 days #6 tabs 04/01/23 Allergies Allergy/AdvReac Type Severity Reaction Status Date / Time No Known Allergies Allergy Verified 04/01/23 16:02 Worker's Comp Is this a Worker's Comp case?: No [facility] [place] Disclaimer: The information contained in this section may have been updated after the patient was seen, as this information can be updated by other users. Medical History Anxiety Depression Hemorrhoid Pre-op testing Surgical History History of section History of partial hysterectomy Family History Other No significant family history Social History Smoking Status: Current some day smoker tobacco type: cigarettes packs per day: 1 second hand exposure: Yes alcohol intake: never substance use type: denies use current occupational status: unemployed Travel in the last 8 weeks: None household members: family and children housing: house marital status: single education level: high school current occupational exposures/hazards: No caffeine: No special margarita needs: No agree to transfusion: No do you feel safe at home: Yes victim of physical abuse: No victim of emotional abuse: No victim of sexual abuse: No would you like helpful sources: No ROS Obtained: Yes All systems reviewed & no additional complaints except as documented Constitutional Constitutional: Reports chills and Reports fever(s) Eyes Eyes: Denies eye discharge ENT Ears, Nose, Mouth, and Throat: Reports as per HPI Cardiovascular Cardiovascular: Denies chest pain Respiratory Respiratory: Denies chest congestion and Reports cough Gastrointestinal Gastrointestingal: Reports nausea; Denies abdominal pain, constipation, cramping, diarrhea or vomiting Musculoskeletal Musculoskeletal: Denies arthralgias Integumentary/Breasts Skin/Breast: Denies rash Neurologic Neurologic: Denies paresthesias Physical Exam General General appearance: alert and in no apparent distress Head Head exam: atraumatic, normocephalic and normal inspection Eye Eye exam: Present normal appearance, PERRL and EOMI ENT ENT exam: Present mucous membranes moist and normal external ear exam Expanded ENT Exam TM/Canal exam: Bilateral TM: erythema and bulging Nose exam: Absent sinus tenderness Mouth exam: Present normal external inspection; Absent drooling Teeth exam: Present normal inspection Throat exam: Present tonsillar erythema, tonsillomegaly and tonsillar exudate Neck Neck exam: Present normal inspection, full ROM and trachea midline; Absent tenderness, meningismus or lymphadenopathy Chest Chest inspection: Present normal inspection and symmetric chest wall rise; Absent tenderness Respiratory Respiratory exam: Present normal lung sounds bilaterally; Absent respiratory distress, wheezes or stridor Cardiovascular Cardiovascular exam: Present regular rate and normal rhythm; Absent systolic murmur or diastolic murmur Abdominal Exam Abdominal exam: Present soft and normal bowel sounds; Absent distention, tenderness, guarding, rebound or rigidity Extremities Exam Extremities exam: Present normal inspection and normal capillary refill; Absent calf tenderness Back Exam Back exam: Present normal inspection and full ROM; Absent tenderness, CVA tenderness (R) or CVA tenderness (L) Neurological Exam Neurological exam: Present alert, oriented X3 and CN II-XII intact Psychiatric Psychiatric exam: Present normal affect and normal mood Skin Skin exam: Present warm, dry, intact and normal color Medical Decision Making Medical Records Medical records reviewed: No I reviewed the patient's medical records. Napoleon Inquiry Pt receiving controlled substance: No Vital Signs: 04/01/23 15:55 Temperature 99.0 F Temperature Source Oral Pulse Rate [Right Radial] 81 Respiratory Rate 21 Blood Pressure [Right Arm] 124/70 Blood Pressure Mean [Right Arm] 88 Blood Pressure Source [Right Arm] Automatic Cuff Blood Pressure Position [Right Arm] Sitting 02 Sat by Pulse Oximetry 100 Oxygen Delivery Method Room Air Lab Data Lab results reviewed: Yes I reviewed the patient's lab results.
[2023-04-01 16:16] LABS: UTC Influenza A Antigen Negative (Negative); UTC Influenza B Antigen Negative (Negative)
[2023-04-01 16:39] VITALS: BP 124/70; PULSE 81; RESP 21; TEMP 37.2; O2SAT 100
== END 2023-04-01 16:38 | disposition home or self-care (01) ==
PROVIDERS: Emergency Provider Nurse Practitioner Family; PCP Nurse Practitioner Family
DX: J02.0 Streptococcal pharyngitis (principal); R07.0 Pain in throat; R50.9 Fever, unspecified; M79.18 Myalgia, other site; R11.0 Nausea; M54.59 Other low back pain; F17.210 Nicotine dependence, cigarettes, uncomplicated
CPT/HCPCS: 81003; 87804; 87880; 99212; 99214; G0463

== ENCOUNTER 2023-04-11 15:21 | Emergency (ER) | payer OTHER, SELFPAY ==
[2023-04-11 16:52] VITALS: BP 136/78; PULSE 75; RESP 18; TEMP 36.8; O2SAT 100; BMI 20.2
--- NOTE | 2023-04-11 16:52 | ED_ITS ---
Discharge Plan Disposition Patient Disposition: Home, Self-Care Condition: Good Prescriptions Prescriptions: New cyclobenzaprine 10 mg Tablet 10 mg PO BID PRN (Reason: Muscle Spasm) Qty: 20 0RF cephalexin 500 mg capsule 500 mg PO QID 5 Days Qty: 20 0RF phenazopyridine [Pyridium] 200 mg tablet 200 mg PO Q8H 2 Days Qty: 6 0RF No Action prednisone 10 mg tablet 10 mg PO BID 3 Days Qty: 6 0RF amoxicillin [amoxicillin] 875 mg tablet 875 mg PO Q12H Qty: 20 0RF Referrals Follow up/Referrals: Edwin Hackett MD [Primary Care Provider] - See instructions Activity Restrictions/Add. Instructions Additional Instructions/Restrictions: Drink plenty of fluids. Take tylenol or ibuprofen for pain or fever. Take the medications as directed. Follow up with your regular doctor. GO TO THE ER FOR ANY WORSENING SYMPTOMS The pyridium will make your urine turn orange, this is an expected side effect. It will stain your clothes if it comes into contact with them. We will culture the urine. That will tell what bacteria is causing your infection and which antibiotics will treat it best. Sometimes the first antibiotic we prescribe turns out to not work against different bacteria. So, make sure you follow up within 3 days if you are not getting better. Clinical Impressions Clinical Impression: Low back pain Stand Alone Forms Stand Alone Forms: Work/School Release Instructions Patient Instructions: DI for Low Back Pain, DI for Urinary Tract Infection (UTI) Discharge ED Provider: Mynor Ibarra [facility] General Stated complaint: back pain Time Seen by Provider: 04/11/23 16:52 Description of Symptoms (Recalled from Triage Doc. by RN): She states that for the past 2 days she has had worsening low back pain, dysuria and urinary frequency. Related Data Previous Rx's Medication Instructions Recorded amoxicillin 875 mg tablet 875 mg PO Q12H #20 tabs 04/01/23 prednisone 10 mg tablet 10 mg PO BID 3 days #6 tabs 04/01/23 cephalexin 500 mg capsule 500 mg PO QID 5 days #20 caps 04/11/23 cyclobenzaprine 10 mg tablet 10 mg PO BID PRN Muscle Spasm #20 04/11/23 tabs phenazopyridine 200 mg tablet 200 mg PO Q8H 2 days #6 tabs 04/11/23 (Pyridium) Allergies Allergy/AdvReac Type Severity Reaction Status Date / Time No Known Allergies Allergy Verified 04/11/23 16:54 [facility] Disclaimer: The information contained in this section may have been updated after the patient was seen, as this information can be updated by other users. Medical History Anxiety Depression Hemorrhoid Pre-op testing Surgical History History of section History of partial hysterectomy Family History Other No significant family history Social History Smoking Status: Current some day smoker tobacco type: cigarettes packs per day: 1 second hand exposure: Yes alcohol intake: never substance use type: denies use current occupational status: unemployed Travel in the last 8 weeks: None household members: family and children housing: house marital status: single education level: high school current occupational exposures/hazards: No caffeine: No special margarita needs: No agree to transfusion: No do you feel safe at home: Yes victim of physical abuse: No victim of emotional abuse: No victim of sexual abuse: No would you like helpful sources: No ROS Obtained: Yes All systems reviewed & no additional complaints except as documented Constitutional Constitutional: Reports system reviewed and no additional complaints, except as documented, Denies chills and Denies fever(s) Eyes Eyes: Denies eye discharge ENT Ears, Nose, Mouth, and Throat: Denies dysphagia, Denies sore throat and Denies throat swelling Cardiovascular Cardiovascular: Denies chest pain and Denies dyspnea Respiratory Respiratory: Denies chest congestion, Denies cough and Denies dyspnea Gastrointestinal Gastrointestingal: Denies abdominal pain, constipation, diarrhea, dysphagia, nausea or vomiting Genitourinary Female Genitourinary: Reports as per HPI, Reports dysuria, Reports urinary frequency, Denies urinary incontinence, Reports urinary hesitancy and Reports urinary urgency Musculoskeletal Musculoskeletal: Denies arthralgias and Reports back pain Integumentary/Breasts Skin/Breast: Denies rash Neurologic Neurologic: Denies paresthesias Allergic/Immunologic Allergic/Immunologic: Denies throat swelling Physical Exam General General appearance: alert and in no apparent distress Head Head exam: atraumatic, normocephalic and normal inspection Eye Eye exam: Present normal appearance, PERRL and EOMI ENT ENT exam: Present normal exam, normal oropharynx, mucous membranes moist, TM's normal bilaterally and normal external ear exam Neck Neck exam: Present normal inspection, full ROM and trachea midline; Absent meningismus or lymphadenopathy Chest Chest inspection: Present normal inspection and symmetric chest wall rise; Absent tenderness Respiratory Respiratory exam: Present normal lung sounds bilaterally; Absent respiratory distress Cardiovascular Cardiovascular exam: Present regular rate and normal rhythm; Absent JVD Abdominal Exam Abdominal exam: Present soft and normal bowel sounds; Absent distention, tenderness or guarding Extremities Exam Extremities exam: Present normal inspection, full ROM and normal capillary refill; Absent calf tenderness Back Exam Back exam: Present normal inspection; Absent tenderness Neurological Exam Neurological exam: Present alert and oriented X3 Psychiatric Psychiatric exam: Present normal affect and normal mood Skin Skin exam: Present warm, dry, intact and normal color Lymphatic Lymphatic Findings: no adenopathy Medical Decision Making Medical Records Medical records reviewed: No I reviewed the patient's medical records. Napoleon Inquiry Pt receiving controlled substance: No Lab Data Lab results reviewed: Yes I reviewed the patient's lab results.
[2023-04-11 17:07] LABS: Apearance,Urine Clear (Clear); Bilirubin,Urine Negative (Negative); Blood, Urine Negative (Negative); Color,Urine Yellow (Yellow); Glucose,Urine (UA) Negative (Negative); Ketones,Urine Negative (Negative); Protein,Urine Negative (Negative); UTC Leukocyte Esterase,Urine Negative (Negative); UTC Nitrate,Urine Negative (Negative); Urobilinogen,Urine 0.2 EU/dl (0.2)
[2023-04-11 17:13] VITALS: BP 136/78; PULSE 75; RESP 18; TEMP 36.8
== END 2023-04-11 17:21 | disposition home or self-care (01) ==
PROVIDERS: Emergency Provider Nurse Practitioner Family; PCP Internal Medicine Adolescent Medicine
DX: R30.0 Dysuria (principal); R35.0 Frequency of micturition; B96.89 Other specified bacterial agents as the cause of diseases classified elsewhere; M54.59 Other low back pain; F17.210 Nicotine dependence, cigarettes, uncomplicated
CPT/HCPCS: 81003; 87086; 99212; 99214; G0463

== ENCOUNTER 2023-04-22 15:01 | Outpatient (CLI) | payer OTHER, SELFPAY | END 2023-04-22 23:59 | LOC: RT 15:01 | PROVIDERS: PCP Nurse Practitioner Family; Visit Provider Nurse Practitioner Family | DX: R00.2 Palpitations (principal) | CPT/HCPCS: 93270 ==

== ENCOUNTER 2023-04-26 14:11 | Outpatient (CLI) | payer OTHER, SELFPAY ==
--- NOTE | 2023-04-26 14:11 | US_ITS ---
PROCEDURE: US TRANSVAGINAL CLINICAL INDICATION: Check Ovaries, pelvic/abdomin pain..See Comment COMPARISON: CT CT ABDOMEN PELVIS W CON from 08/30/2022 FINDINGS: Transvaginal sonographic images of the pelvis were obtained. UTERUS: Surgically absent. The vaginal cuff is intact and appears normal. Bowel is seen above the vaginal cuff. LEFT OVARY: 2.6 cmx2.3cmx1.4cm with a volume of 4.3ml. There are several small peripheral follicles. RIGHT OVARY: 4.0cmx 3.0cmx1.6 cm with a volume of 10.3ml. There are multiple small follicles within the right ovary. The postvoid residual in the bladder is minimal. Both ovaries are seen and appear normal. Doppler flow to both ovaries are seen. There is no fluid in the cul-de-sac. IMPRESSION: 1. The uterus is surgically absent. 2. The vaginal cuff is intact and there is bowel above the cuff. 3. Both ovaries are seen and appear normal. They have multiple small follicles. The right ovary has a polycystic appearance. 4. Bladder postvoid residual is minimal. 5. No fluid in the cul-de-sac. Dictated by: Johann Johnson MD 04/26/2023 16:27 Johann Johnson MD in OV 04/26/2023 16:27
== END 2023-04-26 23:59 ==
LOC: RAD 14:11
PROVIDERS: PCP Internal Medicine Adolescent Medicine; Visit Provider Nurse Practitioner Obstetrics & Gynecology
DX: R10.2 Pelvic and perineal pain (principal); R10.9 Unspecified abdominal pain; R35.0 Frequency of micturition; Z90.710 Acquired absence of both cervix and uterus
CPT/HCPCS: 76830

== ENCOUNTER 2023-04-28 14:58 | Outpatient (CLI) | payer OTHER, SELFPAY ==
[2023-04-28] MEDS: ALBUTEROL 0.083% 2.5 MG/3 ML NEB IH (15:23)
--- NOTE | 2023-04-28 15:23 | PC.NURSE ---
Pre and Post Spirometry completed without incident. Albuterol 0.083% given via HHN, per protocol, Pt tolerated tx well.
== END 2023-04-28 23:59 ==
LOC: RT 14:58
PROVIDERS: PCP Nurse Practitioner Family; Visit Provider Nurse Practitioner Family
DX: R06.00 Dyspnea, unspecified (principal)
CPT/HCPCS: 94060

== ENCOUNTER 2023-05-11 09:57 | Outpatient (CLI) | payer OTHER, SELFPAY ==
[2023-05-11 10:16] LABS: Basophils # 0.1 K/mm3 (0-0.2); Eosinophils # 0.2 K/mm3 (0.0-0.4); Eosinophils % 2.2 % (0.1-12.0); Hematocrit 45.9 % (37.0-47.0); Hemoglobin 15.1 g/dL (12.2-16.2); Lymphocytes # 2.3 K/mm3 (0.7-4.5); Mean Corpuscular HGB Conc 32.8 g/dL (31.8-35.4); Mean Corpuscular Hemoglobin 33.3 pg (27.0-31.2); Mean Corpuscular Volume 101.5 fl (81-99); Mean Platelet Volume 7.8 fl (7.4-10.4); Monocytes # 0.4 K/mm3 (0.1-1.0); Neutrophils # 7.1 K/mm3 (1.8-7.8); Neutrophils % 69.8 % (37.0-80.0); Platelet Count 270 K/mm3 (142-424); Red Blood Count 4.52 M/mm3 (4.20-5.40); Red Cell Distribution Width 12.6 % (11.5-17.5); White Blood Count 10.2 K/mm3 (4.8-10.8)
[2023-05-11 10:43] LABS: Alanine Aminotransferase 34 U/L (12-78); Albumin Level 4.5 g/dl (3.5-5.0); Alkaline Phosphatase 57 U/L (38-126); Anion Gap 13.1 mEq/L (5-15); Aspartate Amino Transferase 30 U/L (14-36); Bilirubin,Direct 0.1 mg/dl (0.0-0.4); Bilirubin,Indirect 0.3 mg/dL (0.0-0.9); Bilirubin,Total 0.4 mg/dl (0.2-1.3); Bilirubin,Unconjugated 0.4 mg/dL (0.0-1.1); Blood Urea Nitrogen 20 mg/dl (7-17); Calcium 9.4 mg/dl (8.4-10.2); Carbon Dioxide 23 mmol/L (22.0-30.0); Chloride 108 mmol/L (98-107); Chol/HDL Ratio 2.3 (1-3.5); Cholesterol 183 mg/dl (140-200); Estimated Glomerular Filt Rate 74 ml/min (>60); GFR (African American) 90 ML/MIN (>60); Glucose 95 mg/dl (74-100); HDL Cholesterol 79 mg/dl (40-60); Potassium 4.1 mmoL/L (3.5-5.1); Sodium 140 mmol/L (136-145); Total Protein,Serum 6.9 g/dl (6.3-8.2); Triglycerides 61 mg/dl (30-150); VLDL Cholesterol 12 mg/dL (0-40)
[2023-05-11 10:54] LABS: Direct LDL Cholesterol 75.37 mg/dL (100-129)
[2023-05-11 11:00] LABS: Free T4 (Free Thyroxine) 0.76 ng/dl (0.78-2.19)
[2023-05-11 11:14] LABS: Thyroid Stimulating Hormone 0.63 uIU/mL (0.465-4.68)
== END 2023-05-11 23:59 ==
LOC: LAB 09:58
PROVIDERS: PCP Nurse Practitioner Family; Visit Provider Nurse Practitioner
DX: R06.09 Other forms of dyspnea (principal); R07.89 Other chest pain; R00.2 Palpitations; K21.9 Gastro-esophageal reflux disease without esophagitis; Z79.899 Other long term (current) drug therapy
CPT/HCPCS: 36415; 80048; 80061; 80076; 84439; 84443; 85025

== ENCOUNTER 2023-05-25 08:57 | Outpatient (CLI) | payer OTHER, SELFPAY ==
--- NOTE | 2023-05-25 08:58 | CT_ITS ---
APPROVED REPORT Adjunct English Instructor: CLINICAL INDICATION Chest Pain TECHNIQUE Image Acquisition: A 128 slice MDCT scanner (SoundFocusa View) was used for data acquisition. A noncontrast coronary calcium scan was performed. A CT attenuation threshold of 130 Hounsfield units (HU) was used for the detection of calcium in contiguous voxels of 1 sq mm in area to be counted as individual lesions. Bolus tracking in the ascending aorta with a threshold of 180 HU was performed. Immediately afterwards, ECG synchronized cardiac CT was then performed from the cardiac base to apex using retrospective gating with ECG tube current modulation. A total of 85 mL of Isovue 370 mg/mL contrast medium was administered at 5 mL/sec followed by a saline flush using a biphasic injection protocol. A tube voltage of 120 KVp was used. The patient received the following medications prior to the cardiac CT. 75 mg of oral metoprolol 15 mg of oral ivabradine 0.4 mg of sublingual nitroglycerin The average heart rate at the time of acquisition was 62 bpm and regular. Image Reconstruction Transaxial images were reconstructed at 0.67 mm slide thickness. Data was reviewed interactively on an advanced workstation capable of 2 and 3-dimensional displays in all conventional reconstruction formats, including multiplanar reformations, maximum intensity projections, curved multiplanar reformations, and volume rendered reconstructions. When applicable, selected routine images describing the relevant coronary anatomy and pathology were saved and sent to PACS. Complications None Technical Quality Overall image quality was good. Coronary artery opacification was adequate. Total DLP (Dose-Length Product) is 1813.0 mGy-cm. The reported value represents the total of one or more individual components during the CT acquisition of this date and at this time, and as such, the same value may appear in more than one CT report depending on the interpreting/reporting physicians. COMPARISON None FINDINGS CT Coronary Calcium Scoring LMA (Left Main Artery) = 0 LAD (Left Anterior Descending) = 0 LCX (Left Coronary Circumflex) = 0 RCA (Right Coronary Artery) = 0 Total Calcium Score = 0 using the AJ-130 method. The interpretation of the calcium heart score is based on the following continuum*: 0 = no calcified plaque detected (risk of coronary artery disease is very low ??? less than 5%) 1-10 = calcium detected in extremely minimal levels (risk of coronary diseases is still low ??? less than 10%) 11-100 = mild levels of plaque detected with certainty (mild or minimal narrowing of heart arteries is likely) 101-400 = definite,at least moderate levels of plaque detected (relatively high risk of a heart attack within 3-5 years) >401-999 = extensive levels of plaque detected (high risk of heart attack, high levels of vascular disease are present, high likelihood of at least one significant coronary narrowing) *The calcium heart score quantifies the burden of coronary calcification/plaque in the coronary arteries. The calcium heart score is not able to evaluate the presence or burden of non-calcified (i.e. soft) plaque. There is no identifiable calcification in the aortic valve, mitral annulus or mitral valve, pericardium, or myocardium. Coronary CT Angiography The coronary arterial system is right dominant. Quantitative Stenosis Grading: Left Main (LM): The left main originates normally from the left sinus of Valsalva. The LM bifurcates into the left anterior descending artery and left circumflex artery. The LM is patent with no evidence of atherosclerosis. Left Anterior Descending (LAD) and Diagonal Branches: The LAD gives off 3 diagonal branch(es). The LAD and its branches are patent with no evidence of atherosclerosis. There is no evidence of LAD-myocardial bridge. Left Circumflex (LCX) and Obtuse Marginals (OM): The LCX gives off 2 Obtuse Marginal (OM) branch(es). The LCX and its branches are patent with no evidence of atherosclerosis. Right Coronary Artery (RCA): The RCA originates normally from the right sinus of Valsalva. The RCA gives off a posterior descending artery (PDA) and posterolateral (PL) branches. The RCA and its branches are patent with no evidence of atherosclerosis. Non-Coronary Cardiac Findings: Analysis of the left ventricular (LV) structure and function was performed after 3-D reconstruction of the LV from axial images, with user-corrected automatic contouring for assessment of LV volumes and user-defined reconstruction from oblique planes for measurement of 3-D cardiac structure and function. -The left ventricle systolic function is normal. -There is no left atrial appendage filling defect. Two right pulmonary veins and two left pulmonary veins drain normally into the left atrium. -No pericardial thickening or calcification. -Central and branch pulmonary arteries in the fsopu-sy-zjvs are unremarkable. -Thoracic aorta within the visualized thoracic aortic-branches in the hprnf-gm-[id number] is unremarkable. Extracardiac Structures No significant extra-cardiac findings. Note, however, that this study is focused on the cardiac findings. IMPRESSION -No coronary calcification with an Agatston score = 0 using the AJ-130 method. -No evidence of significant flow-limiting atherosclerosis of the coronary arteries. -No evidence of coronary anomalies or myocardial bridges. -CAD-RADS 0. Management recommendations per ACC/AHA guidelines*, as clinically appropriate. *Recommendations: CAD RADS 0: Reassurance. Consider non-atherosclerotic causes of chest pain. CAD RADS 1: Consider non-atherosclerotic causes of chest pain. Consider preventive therapy and risk factor modification. CAD RADS 2: Consider non-atherosclerotic causes of chest pain. Consider preventive therapy and risk factor modification, particularly for patients with nonobstructive plaque in multiple segments. CAD RADS 3: Consider further functional testing. Consider symptom-guided anti-ischemic and preventive pharmacotherapy as well as risk factor modification per published guideline statements. CAD RADS 4A: Consider further functional testing or invasive coronary angiography with revascularization per published guideline statements. Consider symptom-guided anti-ischemic and preventive pharmacotherapy as well as risk factor modification per published guideline statements. CAD RADS 4B: Invasive coronary angiography recommended with revascularization per published guideline statements. Consider symptom-guided anti-ischemic and preventive pharmacotherapy as well as risk factor modification per published guideline statements. CAD RADS 5: Consider invasive angiography and/or viability assessment with revascularization per published guideline statements. Consider symptom-guided anti-ischemic and preventive pharmacotherapy as well as risk factor modification per published guideline statements. CRITICAL RESULT None COMMUNICATION Per this written report The coronary and cardiac findings of this CCTA were reviewed, reported, and signed by Gene Pepper MD (Credit Reference Clerk) Conclusion Electronically signed by : Elzbieta Pepper MD 05/25/2023 22:18:41
[2023-05-25] MEDS: NITROGLYCERIN 0.4MG SL TABLET SL (09:08)
[2023-05-25 09:11] VITALS: BMI 21.8
[2023-05-25 09:27] VITALS: BP 115/70; PULSE 74; RESP 18; O2SAT 98
[2023-05-25] MEDS: IVABRADINE HCL 7.5MG TABLET PO (09:33)
[2023-05-25] MEDS: METOPROLOL TARTRATE 50MG TABLET PO (09:34)
[2023-05-25 10:07] VITALS: BP 108/72; PULSE 57; RESP 16; O2SAT 100
[2023-05-25 10:12] VITALS: BP 94/48; PULSE 59; RESP 16; O2SAT 100
[2023-05-25 10:17] VITALS: BP 93/48; PULSE 57; RESP 16; O2SAT 99
[2023-05-25 10:20] VITALS: BP 108/51; PULSE 59; RESP 16; TEMP 36.6; O2SAT 100
[2023-05-25] MEDS: IOPAMIDOL-370 (76%);100ML BOTTLE 85 ML IV (10:21)
[2023-05-25] MEDS: SODIUM CHLORIDE 0.9% 10ML SYR (RAD ONLY) 10 ML IV (10:21)
[2023-05-25] MEDS: 0.9 % SODIUM CHLORIDE 50 ML VIAL IV (10:22)
--- NOTE | 2023-05-25 10:52 | CA_ITS ---
APPROVED REPORT EXAM: Comprehensive 2D, Doppler, and color-flow Echocardiogram Tripper: Ninfa Posey RT(R) Ht: 5 ft 10 in Wt: 150lbs BSA: 1.85 BP: 111/64 mmHg Indications: palpitations, smoker, CP, SOB. 2D Dimensions LVEF (Barbosa's) 56.60 % F: 54 - 74 LV Volume 91.10 mL F: 46 - 106 LV Volume Index 49.2 mL/m2 F: 29 - 61 EF AP4 51.80 % EF AP2 58.9 % EF BP 56.6 % GL Strain -19.4 % M-Mode Dimensions RVDd 2.27 cm (0.9-2.6) LVDd 4.59 cm (3.5-5.7) LVDs 3.55 cm (3.5-5.7) IVSd 0.64 cm (0.6-1.1) PWd 0.70 cm (0.6-1.1) EF (Teich) 45.70% FS 22.70% EDV (Teich) 96.80 mL ESV (Teich) 52.60 mL LV Diastology E Decel Time 200 (160-240 msec) E/A Ratio 2.5 Mitral Valve MV E Max Xavi. 99.0 (40-130 cm/s) MV A Velocity 40.0 (40-130 cm/s) E/A Ratio 2.46 MV PHT 59.0 ms Left Ventricle The left ventricle is normal size. The left ventricular systolic function is normal. The left ventricular ejection fraction is within the normal range. There is normal left ventricular wall thickness. There is normal LV segmental wall motion. The left ventricular diastolic function is normal. LVEF is 55%. Right Ventricle The right ventricle is normal size. The right ventricular systolic function is normal. Atria The left atrium size is normal. The right atrium size is normal. There is no Doppler evidence of interatrial shunt. Aortic Valve The aortic valve opens well. There is no aortic valvular stenosis. No aortic regurgitation is present. Mitral Valve The mitral valve is normal in structure. No evidence of mitral valve stenosis. There is no mitral valve regurgitation noted. Tricuspid Valve The tricuspid valve leaflets are thin and pliable. Trace tricuspid regurgitation. There is insufficient TR jet to estimate RVSP. Pulmonic Valve The pulmonary valve is normal in structure. Trace pulmonic regurgitation. Great Vessels The aortic root is normal in size. The ascending aorta is normal in size. IVC is normal in size and collapses >50% with inspiration. Pericardium There is no pericardial effusion. Other Information Study Quality: Adequate Conclusion Normal biventricular systolic function. No significant valvular stenosis or regurgitation. Electronically signed by : Elzbieta Pepper MD 05/26/2023 13:09:46
== END 2023-05-25 10:20 | disposition home or self-care (01) ==
PROVIDERS: PCP Nurse Practitioner Family; Visit Provider Nurse Practitioner
DX: R07.89 Other chest pain (principal); R06.09 Other forms of dyspnea; R00.2 Palpitations; Z72.0 Tobacco use
CPT/HCPCS: 75571; 75574; 93306; Q9967

== ENCOUNTER 2023-06-20 12:00 | Outpatient (CLI) | payer OTHER, SELFPAY ==
[2023-06-22 10:31] LABS: HBsAg Screen Negative (Negative); HCV Ab Non Reactive (Non Reactive); Hep A Ab, IGM Negative (Negative); Hep B Core Ab, IgM Negative (Negative)
[2023-06-22 10:32] LABS: HIV Screen 4th Generation wRfx Non Reactive (Non Reactive)
== END 2023-06-20 23:59 | disposition home or self-care (01) ==
LOC: LAB.DROPOF 06-21 12:00
PROVIDERS: PCP Nurse Practitioner Family; Visit Provider Nurse Practitioner Family
DX: L81.8 Other specified disorders of pigmentation (principal); F19.91 Other psychoactive substance use, unspecified, in remission; Z11.4 Encounter for screening for human immunodeficiency virus [HIV]
CPT/HCPCS: 80074; 86703; G0432

== ENCOUNTER 2023-10-20 13:46 | Emergency (ER) | payer OTHER, SELFPAY ==
[2023-10-20 14:01] VITALS: BP 118/77; PULSE 105; RESP 18; TEMP 37.1; O2SAT 100; BMI 22.6
--- NOTE | 2023-10-20 14:19 | ED_ITS ---
Discharge Plan Disposition Patient Disposition: Home, Self-Care Condition: Good Prescriptions Prescriptions: New skkslrtszycyswp-wwovopujj-AS [Bromfed DM] 2-30-10 mg/5 mL Syrup 5 ml PO Q6H PRN (Reason: Cough) Qty: 240 0RF ondansetron 4 mg Tablet,Disintegrating 4 mg PO Q8H PRN (Reason: Nausea) Qty: 12 0RF No Action desvenlafaxine succinate [Pristiq] 50 mg tablet extended release 24 hr 50 mg PO DAILY Qty: 90 0RF ketoconazole 2 % cream 1 applic topical BID Qty: 60 2RF Referrals Follow up/Referrals: Crystal Sage APRN [Primary Care Provider] - See instructions Activity Restrictions/Add. Instructions Additional Instructions/Restrictions: Drink plenty of fluids. Take tylenol or ibuprofen for pain or fever. Take the medications as directed. Follow up with your regular doctor. GO TO THE ER FOR ANY WORSENING SYMPTOMS Clinical Impressions Clinical Impression: Acute viral syndrome Stand Alone Forms Stand Alone Forms: Work/School Release Instructions Patient Instructions: DI for Viral Syndrome, Ondansetron Print Language Print Language: Vietnamese Discharge ED Provider: Mynor Ibarra [facility] [place] General Stated complaint: body aches, chills, sore throat, Mode of Arrival: Ambulatory Source of Information: Patient Limitations: No Limitations Time Seen by Provider: 10/20/23 14:15 Description of Symptoms (Recalled from Triage Doc. by RN): body aches,sore throat HEENT Symptoms (Recalled from RN notes): Yes Resp Symptoms (Recalled from RN notes): No Skin Symptoms (Recalled from RN notes): No MS Symptoms (Recalled from RN notes): Yes Functional Status (Recalled from RN notes): na Related Data Previous Rx's ?Medication ?Instructions ?Recorded desvenlafaxine succinate 50 mg 50 mg PO DAILY #90 tabs 06/20/23 tablet,extended release 24 hr (Pristiq) ketoconazole 2 % topical cream 1 applic topical BID #60 grams 06/20/23 csidellzycvqujz-xcijoghhaqacmux-UC 5 ml PO Q6H PRN Cough #240 mL 10/20/23 2 mg-30 mg-10 mg/5 mL oral syrup (Bromfed DM) ondansetron 4 mg disintegrating 4 mg PO Q8H PRN Nausea #12 tabs 10/20/23 tablet Allergies Allergy/AdvReac Type Severity Reaction Status Date / Time No Known Allergies Allergy Verified 06/20/23 13:09 Worker's Comp Is this a Worker's Comp case?: No Is this an [facility] Worker's Comp?: No Is this a [place] Worker's Comp?: No [facility] Disclaimer: The information contained in this section may have been updated after the patient was seen, as this information can be updated by other users. Medical History Low back pain Strep throat Bacterial vaginosis Candidiasis of vagina COVID-19 Muscle spasm Costal margin pain Strep throat Chest pressure Bronchitis Sinusitis Otitis media Depression Anxiety Viral syndrome Enteritis UTI (urinary tract infection) Burning with urination Vaginal discharge Perianal abscess History of seton placement for fistula in ano (Dr. Nur) last year. Patient left without being seen Sinusitis Acute hemorrhoid External hemorrhoid Anal or rectal pain Anal fissure Anorectal hemorrhage Abdominal pain Pelvic pain Upper respiratory infection Surgical History H/O bilateral salpingectomy 08/31/2017, Dr. Suazo at [facility] History of colonoscopy 01/14/2022, Dr. 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 Suazo at [facility] History of endometrial ablation History of section Family History Other No significant family history Social History Smoking Status: Current some day smoker tobacco type: cigarettes packs per day: 1 second hand exposure: Yes alcohol intake: never substance use type: denies use current occupational status: unemployed Travel in the last 8 weeks: None household members: family and children housing: house marital status: single education level: high school current occupational exposures/hazards: No caffeine: No special margarita needs: No agree to transfusion: No do you feel safe at home: Yes victim of physical abuse: No victim of emotional abuse: No victim of sexual abuse: No would you like helpful sources: No ROS Obtained: Yes All systems reviewed & no additional complaints except as documented Constitutional Constitutional: Reports chills and Reports fever(s) Eyes Eyes: Denies eye discharge ENT Ears, Nose, Mouth, and Throat: Reports as per HPI Cardiovascular Cardiovascular: Denies chest pain Respiratory Respiratory: Denies chest congestion and Reports cough Gastrointestinal Gastrointestingal: Reports nausea; Denies abdominal pain, constipation, cramping, diarrhea or vomiting Musculoskeletal Musculoskeletal: Denies arthralgias Integumentary/Breasts Skin/Breast: Denies rash Neurologic Neurologic: Denies paresthesias Physical Exam General General appearance: alert and in no apparent distress Head Head exam: atraumatic, normocephalic and normal inspection Eye Eye exam: Present normal appearance, PERRL and EOMI ENT ENT exam: Present normal exam, normal oropharynx, mucous membranes moist, TM's normal bilaterally and normal external ear exam Neck Neck exam: Present normal inspection, full ROM and trachea midline; Absent meningismus or lymphadenopathy Chest Chest inspection: Present normal inspection and symmetric chest wall rise; Absent tenderness Respiratory Respiratory exam: Present normal lung sounds bilaterally; Absent respiratory distress Cardiovascular Cardiovascular exam: Present regular rate and normal rhythm; Absent JVD Abdominal Exam Abdominal exam: Present soft and normal bowel sounds; Absent distention, tenderness or guarding Extremities Exam Extremities exam: Present normal inspection, full ROM and normal capillary refill; Absent calf tenderness Back Exam Back exam: Present normal inspection; Absent tenderness Neurological Exam Neurological exam: Present alert and oriented X3 Psychiatric Psychiatric exam: Present normal affect and normal mood Skin Skin exam: Present warm, dry, intact and normal color Lymphatic Lymphatic Findings: no adenopathy Medical Decision Making Medical Records Medical records reviewed: No I reviewed the patient's medical records. Napoleon Inquiry Pt receiving controlled substance: No Vital Signs: 10/20/23 14:01 Temperature 98.8 F Temperature Source Oral Pulse Rate [Right] 105 H Respiratory Rate 18 Blood Pressure [Right Arm] 118/77 Blood Pressure Mean [Right Arm] 90 02 Sat by Pulse Oximetry 100 Lab Data Lab results reviewed: Yes I reviewed the patient's lab results.
[2023-10-20 14:36] LABS: Coronavirus 19, PCR Not Detected (NotDetected); Influenza A, PCR Not Detected (NotDetected); Influenza B, PCR Not Detected (NotDetected)
[2023-10-20 14:42] LABS: UTC Strep Screen (Rapid) Negative (Negative)
[2023-10-20 14:47] VITALS: BP 118/77; PULSE 105; RESP 18; TEMP 37.1; O2SAT 100
== END 2023-10-20 14:47 | disposition home or self-care (01) ==
PROVIDERS: Emergency Provider Nurse Practitioner Family; PCP Nurse Practitioner Family
DX: R07.0 Pain in throat (principal); R68.83 Chills (without fever); M79.18 Myalgia, other site; B34.9 Viral infection, unspecified
CPT/HCPCS: 87636; 87880; 99212; 99214; G0463

== ENCOUNTER 2023-10-22 08:05 | Emergency (ER) | payer OTHER, SELFPAY ==
[2023-10-22 08:10] VITALS: BP 112/63; PULSE 73; RESP 18; TEMP 36.8; O2SAT 98; BMI 23.1
--- NOTE | 2023-10-22 08:33 | ED_ITS ---
Discharge Plan Disposition Patient Disposition: Home, Self-Care Condition: Good Prescriptions Prescriptions: No Action No Known Home Medications Referrals Follow up/Referrals: Crystal Sage APRN [Primary Care Provider] - See instructions Activity Restrictions/Add. Instructions Additional Instructions/Restrictions: CONTACT PRECAUTIONS IF SYMPTOMS WORSE OR NO IMPROVEMENT RETURN Clinical Impressions Clinical Impression: Hand, foot and mouth disease (HFMD) Instructions Patient Instructions: Hand, Foot, and Mouth Disease Print Language Print Language: Tajik [facility] [facility] [place] General Stated complaint: rash on hands and feet Mode of Arrival: Ambulatory Source of Information: Patient Limitations: No Limitations Time Seen by Provider: 10/22/23 08:33 Description of Symptoms (Recalled from Triage Doc. by RN): PATIENT C/O RASH TO HANDS, CHEST, THROAT AND FEET SINCE TUESDAY. SHE REPORTS HER DAUGHTER RECENTLY HAD HAND, FOOT AND MOUTH HEENT Symptoms (Recalled from RN notes): No Resp Symptoms (Recalled from RN notes): No Skin Symptoms (Recalled from RN notes): Yes MS Symptoms (Recalled from RN notes): No Functional Status (Recalled from RN notes): WNL History of Present Illness Provider Complaint: 28 YR OLD FEMALE PRESENTS FOR C/O RASH TO HANDS, CHEST, THROAT AND FEET SINCE TUESDAY. SHE REPORTS HER DAUGHTER RECENTLY HAD HAND, FOOT AND MOUTH Related Data Home Medications ?Medication ?Instructions ?Recorded ?Confirmed No Known Home Medications 10/22/23 10/22/23 Allergies Allergy/AdvReac Type Severity Reaction Status Date / Time No Known Allergies Allergy Verified 06/20/23 13:09 Worker's Comp Is this a Worker's Comp case?: No [facility] Disclaimer: The information contained in this section may have been updated after the patient was seen, as this information can be updated by other users. Medical History , DONALD) Low back pain Strep throat Bacterial vaginosis Candidiasis of vagina COVID-19 Muscle spasm Costal margin pain Strep throat Chest pressure Bronchitis Sinusitis Otitis media Depression Anxiety Viral syndrome Enteritis UTI (urinary tract infection) Burning with urination Vaginal discharge Perianal abscess Patient left without being seen Sinusitis Acute hemorrhoid External hemorrhoid Anal or rectal pain Anal fissure Anorectal hemorrhage Abdominal pain Pelvic pain Upper respiratory infection Surgical History H/O bilateral salpingectomy 08/31/2017, Dr. Suazo at [facility] History of colonoscopy 01/14/2022, Dr. 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 Suazo at [facility] History of endometrial ablation History of section Family History , TITLE CLOSER) No significant family history Social History , TITLE CLOSER) Smoking Status: Current some day smoker tobacco type: cigarettes packs per day: 1 second hand exposure: Yes alcohol intake: never substance use type: denies use current occupational status: unemployed Travel in the last 8 weeks: None household members: family and children housing: house marital status: single education level: high school current occupational exposures/hazards: No caffeine: No special margarita needs: No agree to transfusion: No do you feel safe at home: Yes victim of physical abuse: No victim of emotional abuse: No victim of sexual abuse: No would you like helpful sources: No ROS Obtained: Yes All systems reviewed & no additional complaints except as documented Constitutional Constitutional: Reports system reviewed and no additional complaints, except as documented Eyes Eyes: Reports system reviewed and no additional complaints, except as documented ENT Ears, Nose, Mouth, and Throat: Reports system reviewed and no additional complai nts, except as documented, Reports as per HPI and Reports sore throat Cardiovascular Cardiovascular: Reports system reviewed and no additional complaints, except as documented Respiratory Respiratory: Reports system reviewed and no additional complaints, except as documented Musculoskeletal Musculoskeletal: Reports system reviewed and no additional complaints, except as documented Integumentary/Breasts Skin/Breast: Reports system reviewed and no additional complaints, except as documented, Reports as per HPI and Reports rash Neurologic Neurologic: Reports system reviewed and no additional complaints, except as documented Endocrine Endocrine: Reports system reviewed and no additional complaints, except as documented Allergic/Immunologic Allergic/Immunologic: Reports system reviewed and no additional complaints, except as documented Physical Exam General General appearance: alert and in no apparent distress Eye Eye exam: Present normal appearance and PERRL ENT ENT exam: Present mucous membranes moist and TM's normal bilaterally Expanded ENT Exam Throat exam: Present tonsillar erythema Respiratory Respiratory exam: Present normal lung sounds bilaterally Cardiovascular Cardiovascular exam: Present regular rate and normal rhythm Extremities Exam Extremities exam: Present normal inspection Neurological Exam Neurological exam: Present alert and oriented X3 Skin Skin exam: Present warm, intact and rash (SMALL RED DOTS TO JORDYN HANDS AND FEET.) Medical Decision Making Medical Records Medical records reviewed: Yes I reviewed the patient's medical records. Napoleon Inquiry Pt receiving controlled substance: No Napoleon was queried for this patient: No Vital Signs: 10/22/23 08:10 Temperature 98.2 F Temperature Source Oral Pulse Rate [Left Brachial] 73 Respiratory Rate 18 Blood Pressure [Left Arm] 112/63 Blood Pressure Mean [Left Arm] 79 Blood Pressure Source [Left Arm] Automatic Cuff Blood Pressure Position [Left Arm] Sitting 02 Sat by Pulse Oximetry 98 Oxygen Delivery Method Room Air
[2023-10-22 08:39] VITALS: BP 112/63; PULSE 73; RESP 18; TEMP 36.8; O2SAT 98
== END 2023-10-22 08:42 | disposition home or self-care (01) ==
PROVIDERS: Emergency Provider Nurse Practitioner Family; PCP Nurse Practitioner Family
DX: B08.4 Enteroviral vesicular stomatitis with exanthem (principal)
CPT/HCPCS: 99212; 99213; G0463

== ENCOUNTER 2024-05-14 13:16 | Outpatient (CLI) | payer OTHER, SELFPAY ==
[2024-05-14 12:42] LABS: Coronavirus 19, PCR Not Detected (NotDetected); Human Rhinovirus Not Detected (NotDetected); Influenza A, PCR Not Detected (NotDetected); Influenza B, PCR Not Detected (NotDetected); Respiratory Syncytial Virus Not Detected (NotDetected)
== END 2024-05-14 23:59 | disposition home or self-care (01) ==
LOC: LAB.DROPOF 13:18
PROVIDERS: PCP Nurse Practitioner Family; Visit Provider Nurse Practitioner Family
DX: J32.9 Chronic sinusitis, unspecified (principal); H10.9 Unspecified conjunctivitis; N39.0 Urinary tract infection, site not specified
CPT/HCPCS: 87086; 87631

== ENCOUNTER 2024-06-04 13:50 | Outpatient (CLI) | payer OTHER, SELFPAY ==
[2024-06-04 13:30] LABS: Microscopic, Urine URINE MICROSCOPIC (MICROSCOPIC)
[2024-06-04 14:27] LABS: Albumin Level 5.1 g/dl (3.5-5.0)
[2024-06-04 14:28] LABS: Chloride 103 mmol/L (98-107); Potassium 4.6 mmoL/L (3.5-5.1); Sodium 139 mmol/L (136-145)
[2024-06-04 14:30] LABS: Alanine Aminotransferase 29 U/L (12-78); Aspartate Amino Transferase 31 U/L (14-36); Blood Urea Nitrogen 15 mg/dl (7-17); Estimated Glomerular Filt Rate 84 ml/min (>60); GFR (African American) 102 ML/MIN (>60)
[2024-06-04 14:31] LABS: Albumin/Globulin Ratio 2.2 (1.1-1.8); Alkaline Phosphatase 73 U/L (38-126); Anion Gap 15.6 mEq/L (5-15); Bilirubin,Total 0.6 mg/dl (0.2-1.3); Calcium 9.4 mg/dl (8.4-10.2); Carbon Dioxide 25 mmol/L (22.0-30.0); Chol/HDL Ratio 2.4 (1-3.5); Cholesterol 186 mg/dl (140-200); Globulin 2.3 g/dL (1.3-3.2); Glucose 82 mg/dl (74-100); HDL Cholesterol 79 mg/dl (40-60); Iron 125 ug/dL (37-170); Total Protein,Serum 7.4 g/dl (6.3-8.2); Triglycerides 54 mg/dl (30-150); VLDL Cholesterol 11 mg/dL (0-40)
[2024-06-04 14:39] LABS: Appearance,Urine CLEAR (Clear); Bilirubin,Urine Negative (Negative); Blood, Urine Negative (Negative); Color,Urine YELLOW (Yellow); Glucose,Urine (UA) Negative (Negative); Ketones,Urine Negative (Negative); Leukocyte Esterase,Urine Negative (Negative); Nitrate,Urine Negative (Negative); Protein,Urine Negative (Negative); Urobilinogen,Urine 0.2 EU/dl (0.2)
[2024-06-04 14:42] LABS: Direct LDL Cholesterol 82.07 mg/dL (100-129)
[2024-06-04 14:45] LABS: Total Iron Binding Capacity 343 ug/dL (265-497)
[2024-06-04 14:47] LABS: 25-OH Vitamin D, Total 27.2 ng/mL (30-100)
[2024-06-04 15:04] LABS: Thyroid Stimulating Hormone 1.52 uIU/mL (0.465-4.68)
[2024-06-04 15:14] LABS: Ferritin 43.1 ng/ml (6.24-137)
[2024-06-04 15:16] LABS: Creatinine,Urine Random 56 mg/dL (Not Estab.); Microalbumin < 6.000 mg/L (0-16.7)
[2024-06-04 15:17] LABS: Basophils # 0.1 K/mm3 (0-0.2); Basophils % 0.7 % (0.1-2.0); Eosinophils # 0.1 K/mm3 (0.0-0.4); Eosinophils % 1.9 % (0.1-12.0); Hematocrit 44.3 % (37.0-47.0); Hemoglobin 15.4 g/dL (12.2-16.2); Lymphocytes # 2.3 K/mm3 (0.7-4.5); Lymphocytes % 33.9 % (10-50); Mean Corpuscular HGB Conc 34.8 g/dL (31.8-35.4); Mean Corpuscular Volume 94.9 fl (81-99); Mean Platelet Volume 10.4 fl (7.4-10.4); Monocytes # 0.4 K/mm3 (0.1-1.0); Monocytes % 6.3 % (1.7-9.3); Neutrophils # 3.8 K/mm3 (1.8-7.8); Neutrophils % 57.2 % (37.0-80.0); Platelet Count 328 K/mm3 (142-424); Red Blood Count 4.67 M/mm3 (4.20-5.40); Red Cell Distribution Width 11.9 % (11.5-17.5); White Blood Count 6.7 K/mm3 (4.8-10.8)
[2024-06-04 15:18] LABS: Hemoglobin A1C 5.2 % (4.0-6.0)
[2024-06-04 16:32] LABS: Vitamin B12 869 pg/mL (239-931)
[2024-06-05 09:27] LABS: Insulin Level Total 10.2 uIU/mL (2.6-24.9)
[2024-06-05 11:12] LABS: C-Peptide 1.9 ng/mL (1.1-4.4)
== END 2024-06-04 23:59 | disposition home or self-care (01) ==
LOC: LAB.DROPOF 13:50
PROVIDERS: PCP Nurse Practitioner Family; Visit Provider Nurse Practitioner Family
DX: R53.83 Other fatigue (principal); I10 Essential (primary) hypertension; A60.00 Herpesviral infection of urogenital system, unspecified; F41.9 Anxiety disorder, unspecified; F32.A Depression, unspecified; R61 Generalized hyperhidrosis; E16.2 Hypoglycemia, unspecified; R41.3 Other amnesia; E11.9 Type 2 diabetes mellitus without complications; G47.33 Obstructive sleep apnea (adult) (pediatric)
CPT/HCPCS: 80053; 80061; 81001; 82043; 82306; 82570; 82607; 82728; 83036; 83525; 83540; 83550; 84439; 84443; 84681; 85025; 87086

== ENCOUNTER 2024-07-09 13:53 | Outpatient (CLI) | payer OTHER, SELFPAY ==
[2024-07-10 12:21] LABS: Estradiol 39.5 pg/mL (.); FSH 4.5 mIU/mL (.); LH 15.3 mIU/mL (.)
== END 2024-07-09 23:59 | disposition home or self-care (01) ==
LOC: LAB 13:54
PROVIDERS: PCP Nurse Practitioner Family; Visit Provider Nurse Practitioner Obstetrics & Gynecology
DX: R61 Generalized hyperhidrosis (principal); R53.83 Other fatigue
CPT/HCPCS: 36415; 82670; 83001; 83002; 84144

== ENCOUNTER 2024-11-13 11:30 | Outpatient (CLI) | payer OTHER, SELFPAY ==
[2024-11-13 15:08] LABS: Hematocrit 46.0 % (37.0-47.0); Hemoglobin 15.9 g/dL (12.2-16.2); Immature Granulocytes % 0.3 %; Mean Corpuscular HGB Conc 34.6 g/dL (31.8-35.4); Mean Corpuscular Hemoglobin 32.4 pg (27.0-31.2); Mean Corpuscular Volume 93.7 fl (81-99); Nucleated Red Blood Cells % 0 %; Platelet Count 365 K/mm3 (142-424); Red Blood Count 4.91 M/mm3 (4.20-5.40); Red Cell Distribution Width-SD 41.1 fL; White Blood Count 10.3 K/mm3 (4.8-10.8)
[2024-11-13 15:09] LABS: Alanine Aminotransferase 22 U/L (12-78); Albumin Level 5.0 g/dl (3.5-5.0); Albumin/Globulin Ratio 1.7 (1.1-1.8); Alkaline Phosphatase 69 U/L (38-126); Amylase 71 U/L (30-110); Anion Gap 14.1 mEq/L (5-15); Aspartate Amino Transferase 24 U/L (14-36); Bilirubin,Total 0.5 mg/dl (0.2-1.3); Blood Urea Nitrogen 12 mg/dl (7-17); Calcium 10.2 mg/dl (8.4-10.2); Carbon Dioxide 21 mmol/L (22.0-30.0); Chloride 107 mmol/L (98-107); Creatinine,Serum 0.70 mg/dl (0.52-1.04); Estimated Glomerular Filt Rate 98 ml/min (>60); GFR (African American) 119 ML/MIN (>60); Globulin 2.9 g/dL (1.3-3.2); Glucose 96 mg/dl (74-100); Lipase 59 U/L (23-300); Potassium 4.1 mmoL/L (3.5-5.1); Sodium 138 mmol/L (136-145); Total Protein,Serum 7.9 g/dl (6.3-8.2)
[2024-11-13 15:26] LABS: C-Reactive Protein 0.7 mg/L (0-4)
[2024-11-13 16:53] LABS: Hemoglobin A1C 5.2 % (4.0-6.0)
--- OUTSIDE RECORDS SUMMARY | 2024-11-14 10:38 | XMS_ITS | Clinical Summary ---
Author Organization [facility] Address [address] [id number] Care Team Providers Care Ui Lead Developer Name Role Phone Edwin Hackett MD Primary Care Provider [phone] Allergies No known active allergies Family History Medical History Relation Name Comments Conversions - Other Other Patient unsure of family history Relation Name Status Comments Other Social History Tobacco Use Types Packs/Day Years Used Date Smoking Tobacco: Every Day Alcohol Use Standard Drinks/Week Comments Yes 0 (1 standard drink = 0.6 oz pure alcohol) Alcoholic Drinks/day: Consumes alcohol occasionally Comments Unknown Sex and Gender Information Value Date Recorded Sex Assigned at Not on file Legal Sex Female 7:14 PM EDT Gender Identity Not on file Sexual Orientation Not on file Last Filed Vital Signs Vital Sign Reading Time Taken Comments Blood Pressure 100/67 03/25/2021 2:39 PM EST Pulse 50 09/17/2019 11:26 AM EDT Temperature 37.2 C (98.9 F) 09/17/2019 11:26 AM EDT Respiratory Rate - - Oxygen Saturation - - Inhaled Oxygen Concentration - - Weight 63.5 kg (140 lb) 03/25/2021 2:39 PM EST Height 177.8 cm (5' 10 ) 03/25/2021 2:39 PM EST Body Mass Index 20.09 03/25/2021 2:39 PM EST Plan of Treatment Health Maintenance Due Date Last Done Comments Dental Oral Exam 1994 Dental Prophylaxis 1994 Dental X-Ray: Bitewings 1994 Dental X-Ray: Full Mouth 1994 [facility]-Depression Screening 1994 [facility]-Infant/Child/Adol SDOH Screenings 1994 [facility]-Varicella Vaccines (1 of 2 - 13+ 2-dose series) 2007 [facility]- SDOH Screenings 2012 [facility]-Adult SDOH Screenings 2012 [facility]-Hepatitis B Vaccines (1 of 3 - 19+ 3-dose series) 2013 [facility]-Pap Smear 2015 HPV Vaccines (1 - 3-dose SCDM series) 2021 [facility]-Cervical Cancer Screening 2024 [facility]-HPV/Cotest 2024 [id number] Vaccine (3 - 2024- season) 2024 03/11/2021, 02/11/2021 [facility]-Influenza Vaccine (#1) 11/05/202404/25, 02/16/2019, 02/04/2016 [facility]-DTaP,Tdap,and Td Vaccines (2 - Td or Tdap) 05/18/2026 05/18/2016 [facility]-Zoster Vaccines (1 of 2) 2044 [facility]-HIB Vaccines Aged Out No longer e ligible based on patient's age to complete this topic [facility]-Hepatitis A Vaccines Aged Out No longer eligible based on patient's age to complete this topic [facility]-IPV Vaccines Aged Out No longer e ligible based on patient's age to complete this topic [facility]-Pneumococcal Vaccine: Pediatrics (0 to 5 Years) and At-Risk Patients (6 to 49 Years) Aged Out No longer eligible b ased on patient's age to complete this topic [facility]-Rotavirus Vaccines Aged Out No lo nger eligible based on patient's age to complete this topic Insurance [employer]ET[employer] [facility] MEDICAID [facility] MEDICAID DENTAL Care Teams Ui Lead Developer Relationship Specialty Start Date End Date Edwin Hackett MD [address] [place] [phone] PCP - General 07/18/20
[2024-11-15 14:24] LABS: EBV Nuclear Antigen Ab, IgG 246.0 U/mL (0.0-17.9)
== END 2024-11-13 23:59 | disposition home or self-care (01) ==
LOC: LAB.DROPOF 11-14 10:32
PROVIDERS: PCP Family Medicine; Visit Provider Family Medicine
DX: E16.2 Hypoglycemia, unspecified (principal); R19.7 Diarrhea, unspecified; R10.30 Lower abdominal pain, unspecified; R53.82 Chronic fatigue, unspecified; R53.81 Other malaise
CPT/HCPCS: 80053; 82150; 83036; 83690; 85025; 86140; 86664; 86665

== ENCOUNTER 2024-11-14 13:18 | Outpatient (CLI) | payer OTHER, SELFPAY ==
[2024-11-14 13:26] LABS: Adenovirus F 40/41, stool Not Detected (NotDetected); Clostridium Difficile A/B, PCR Not Detected (NotDetected); Cyclospora Cayetanesis Not Detected (NotDetected); Plesimonas Shigalloides, PCR Not Detected (NotDetected); Salmonella, PCR Not Detected (NotDetected); Shiga-like toxin E coli Not Detected (NotDetected); Shigella Enterovasive E coli Not Detected (NotDetected); Vibrio, PCR Not Detected (NotDetected); Yersinia Entercolitica, PCR Not Detected (NotDetected)
--- OUTSIDE RECORDS SUMMARY | 2024-11-14 13:28 | XMS_ITS | Clinical Summary ---
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
== END 2024-11-14 23:59 | disposition home or self-care (01) ==
LOC: LAB.DROPOF 13:19
PROVIDERS: PCP Nurse Practitioner Family; Visit Provider Family Medicine
DX: K92.1 Melena (principal)
CPT/HCPCS: 87506